=== PATIENT | male | born 1965 | race Caucasian/White ===

== ENCOUNTER 2016-05-02 10:30 | Inpatient (IN) | payer OTHER ==
[~2016-05-02] VITALS: Ht 167.6 cm; Wt 77.0 kg
[2016-08-12 16:58] VITALS: BMI 27.0
[2016-08-15] VITALS (66 sets, daily range): BP systolic 78–138; BP diastolic 26–80; PULSE 0–110; RESP 15–41; Ht 167.6 cm; Wt 77.0 kg
[2016-08-15] MEDS ORDERED: AMPICILLIN/SULB 3 GM/NS (PMX) 100 ML IVPB ONE (07:00)
[2016-08-15] MEDS ORDERED: SOD CHLORIDE 0.9% 1,000 ML IV ONE (07:00)
[2016-08-15] MEDS ORDERED: EPHEDrine SULFATE 50 MG/5 ML SYG ONE (07:00)
--- NOTE | 2016-08-15 07:39 | RADRPT ---
PROCEDURE: XR Chest. CLINICAL INDICATION: Preop TECHNIQUE: A single AP view of the chest was obtained. COMPARISON: None. FINDINGS: No focal airspace opacification, pleural effusion or pneumothorax is seen. The cardiomediastinal si lhouette is within normal limits for size. The osseous structures are unremarkable. IMPRESSION: No radiographic evidence of acute cardiopulmonary disease. RPTAT: HH .Hian Vaca MD, MD Date Time Electronically viewed and signed by .Hina Vaca MD, on 08/15/2016 07:39 .G/
[2016-08-15] MEDS ORDERED: NORCO (08:03)
[2016-08-15] MEDS ORDERED: SERT50TA PO (08:03)
[2016-08-15] MEDS ORDERED: ENOX80DI12 SC (08:03)
[2016-08-15] MEDS ORDERED: RANI150T9 PO (08:08)
[2016-08-15] MEDS ORDERED: IBUP800T25 PO (08:08)
[2016-08-15 08:15] LABS: POTASSIUM 4.1 mmol/L (3.5-5.1)
[2016-08-15 08:18] LABS: CALCIUM 8.7 mg/dl (8.4-10.2); CREATININE 0.77 mg/dl (0.61-1.24)
[2016-08-15 08:21] LABS: INR 0.91; PROTIME 12.3 Sec (12.2-14.2)
[2016-08-15 08:23] LABS: BASOPHIL # 0.1 10^3/ul (0.0-0.1); BASOPHILS % 0.8 % (0.0-2.0); EOSINOPHILS # 0.4 10^3/ul (0.0-0.5); EOSINOPHILS % 6.6 % (0.0-7.0); HEMOGLOBIN 13.9 g/dl (14.0-18.0); LYMPHOCYTES # 2.3 10^3/ul (0.8-2.9); LYMPHOCYTES % 35.2 % (15.0-51.0); MEAN CORPUSCULAR HEMOGLOBIN 32.1 pg (29.0-33.0); MEAN CORPUSCULAR HGB CONC 35.6 g/dl (32.0-37.0); MEAN CORPUSCULAR VOLUME 90.1 fl (82.0-101.0); MEAN PLATELET VOLUME 7.3 fl (7.4-10.4); MONOCYTE # 0.7 10^3/ul (0.3-0.9); MONOCYTES % 10.4 % (0.0-11.0); PLATELET COUNT 221 10^3/UL (140-440); RED BLOOD COUNT 4.33 10^6/ul (4.70-6.10); UNCORRECTED WBC 6.4 10^3/ul (4.8-10.8); WHITE BLOOD COUNT 6.4 10^3/ul (4.8-10.8)
[2016-08-15 08:37] LABS: CONDITION 1
[2016-08-15 08:40] LABS: PARTIAL THROMBOPLASTIN TIME 24.1 Sec (25.0-35.0)
[2016-08-15] MEDS ORDERED: PROPOFOL 20 ML ONE (08:48)
[2016-08-15] MEDS ORDERED: LIDOCAINE 2% (SDV) 5 ML INJ ONE (08:48)
[2016-08-15] MEDS ORDERED: ROCURONIUM 50 MG INJ ONE ×3 (08:50→12:34)
[2016-08-15] MEDS ORDERED: ROPIVACAINE 0.5 % 30 ML VIAL ONE ×2 (10:05→12:24)
[2016-08-15] MEDS ORDERED: LABETALOL HCL 20MG INJ ONE (10:43)
[2016-08-15] MEDS ORDERED: SUCCINYLCHOLINE CHLORIDE 100 MG/5 ML SYG IV ONE (11:28)
[2016-08-15] MEDS ORDERED: MEPERIDINE 25 MG INJ IV PRN (11:30)
[2016-08-15] MEDS ORDERED: hydrALAzine 20 MG INJ IV PRN (11:30)
[2016-08-15] MEDS ORDERED: EPHEDrine SULFATE 50 MG/5 ML SYG IV PRN (11:30)
[2016-08-15] MEDS ORDERED: NALBUPHINE HCL (10 MG/1 ML) INJ IV PRN ×2 (11:30→14:30)
[2016-08-15] MEDS ORDERED: FENTAnyl 2MCG/ML-ROPIV 0.2% 100 ML BAG EPI SCH (11:30)
[2016-08-15] MEDS ORDERED: ZOLPIDEM 5 MG TAB PO PRN ×2 (11:30→14:30)
[2016-08-15] MEDS ORDERED: LABETALOL HCL 20MG INJ IV PRN (11:30)
[2016-08-15] MEDS ORDERED: ONDANSETRON 4 MG INJ IV PRN ×4 (11:30→14:30)
[2016-08-15] MEDS ORDERED: HYDROmorphONE (0.2 MG/ML) 10ML SYG IV PRN ×3 (11:30)
[2016-08-15] MEDS ORDERED: DIPHENHYDRAMINE 50 MG INJ IV PRN ×2 (11:30→14:30)
[2016-08-15] MEDS ORDERED: NALOXONE (0.4 MG/ML) INJ IV PRN ×2 (11:30→14:30)
[2016-08-15] MEDS ORDERED: HYDROmorphONE 1 MG/ML SYG IV PRN ×3 (11:30→14:30)
[2016-08-15] MEDS ORDERED: DEXAMETHASONE 4 MG/ML 1 ML INJ ONE (12:39)
[2016-08-15] MEDS ORDERED: ONDANSETRON 4 MG INJ ONE (12:40)
[2016-08-15] MEDS ORDERED: PHENYLephrine (100 MCG/ML) 5ML SYG ONE (12:53)
[2016-08-15] MEDS ORDERED: NEOSTIGMINE 3 MG/3 ML SYRINGE ONE (13:01)
[2016-08-15] MEDS ORDERED: GLYCOPYRROLATE 0.4 MG INJ ONE (13:01)
[2016-08-15] MEDS ORDERED: D5W-0.45 NACL + KCL 20 MEQ 1,000 ML IV SCH (13:09)
[2016-08-15] MEDS: MIDAZOLAM 1 MG/ML 2 ML INJ IV PRN ×2 (14:30→14:32)
[2016-08-15] MEDS ORDERED: LACTATED RINGER'S 250 ML IV ONE (15:30)
[2016-08-15 15:36] LABS: ADD UMIC NO; URINE BILIRUBIN (Dip) NEGATIVE (NEGATIVE); URINE BLOOD (Dip) NEGATIVE (NEGATIVE); URINE COLOR LT. YELLOW (YELLOW); URINE GLUCOSE (Dip) NEGATIVE (NEGATIVE); URINE KETONES (Dip) NEGATIVE (NEGATIVE); URINE LEUKOCYTE ESTERASE (Dip) NEGATIVE (NEGATIVE); URINE NITRITE (Dip) NEGATIVE (NEGATIVE); URINE TOTAL PROTEIN (Dip) NEGATIVE (NEGATIVE); URINE UROBILINOGEN (Dip) 0.2 E.U./dL (0.1-1.0)
--- NOTE | 2016-08-15 15:38 | HP ---
Date/Time of Note Date/Time of Note DATE: 08/15/16 TIME: 15:22 Assessment/Plan VTE Prophylaxis VTE Prophylaxis Intervention: SCD's, other (Lovenox on hold at this time, POD # 0) Lines/Catheters IV Catheter Type (from Nrsg): A Line Urinary Cath still in place: Yes Reason Cath still needed: other (indicate) (Critical care) Assessment/Plan Assessment/Plan 50 yo Male with 1) S/p Pancreatic Mass Removal, POD #0 2) Hx of PE/DVT 3) Hx of Abdominal trauma S/p Partial Colectomy, Portal Hepatectomy 4) Dyslipidemia 5) Borderline Hypotension, Post Op, Epidural Cont excellent PACU care Cont LR Maintenance IVFs, Bolus 250ml as needed to maintain MAPs>65mmHg Will request ICU transfer once bed available. Cont strict Is and Os, Thomas catheter care, SCDs Cont Pain Rx as needed Discussed case with Dr Kuhn and Dr Cisneros of Anesthesia Will order routine labs post Op, No Lovenox Rx at this time Further care as determined by Surgery. HPI/ROS Admit Date/Time Admit Date/Time Aug 15, 2016 at 06:44 Hx of Present Illness 50 yo [place] Male with Hypercoagulable state, RLE DVT and PE (was on Lovenox until held for Surgery), Hx of Abdominal trauma in past, Hx of Partial Colectomy, Portal Hepatectomy, Hx of Pancreatic Cyst/Mass who is POD #0 after Pancreatic Mass removal by Dr Kuhn today and is currently in PACU. Pt is awake and alert, has epidural anesthesia still in place. BP was borderline with A-line, however has improved with IVF challenge and is currently on maintenance IVFs. Pt also required multiple doses of Pain Rx (Dilaudid and Demerol) for abdominal pain. Pt does not have any new complaints at this time, Denies Fever , Chills, N/V, CP or SOB. No history of Dysuria or hematuria. Pt has received IV Abx Joanna-operatively. ROS Subjective hx not possible: pt critical status Constitutional: No chills, No febrile ENT: No bleeding Respiratory: No shortness of breath Cardiovascular: no complaints Gastrointestinal: pain, No nausea, No vomiting Genitourinary: No dysuria Skin: no complaints Neurologic: No dizziness, No focal-weakness, No headache Endocrine: no complaints Psychological: no complaints Immunologic: no complaints PMH/Family/Social Past Medical History Medical History: deep vein thrombosis, high cholesterol, pancreatitis ( Pancreatic Cysts/Mass), renal disease (Kidney stone), other (Pulmonary embolism , Hx of Abdominal trauma) Past Surgical History Past Surgical Hx: bowel resection (Partial colectomy, portal hepatectomy), other Family History Significant Family History: no pertinent family hx Social History Originally from [place], Lives with Friend here in the [facility], Pt is with children. Alcohol Use: none Smoking Status: Current some day smoker Drug Use: none Exam/Review of Systems Vital Signs Vitals Vital Signs Date Time Temp Pulse Resp B/P Pulse Ox O2 Delivery O2 Flow Rate FiO2 08/15/16 14:38 86 16 98/40 100 Nasal Cannula 2.0 08/15/16 13:39 97.7 Exam Constitutional: alert, oriented, No distress Psych: nl mood/affect, No anxiety Head: atraumatic, normocephalic Eyes: EOMI, nl conjunctiva, nl sclera, No icteric ENMT: mucosa pink and moist, nl lips & teeth Neck: No jvd Respiratory: clear to auscultation, No crackles/rales, No diminished breath sounds, No labored breathing Cardiovascular: regular rate and rhythm, No edema Gastrointestinal: other (CY Drain), soft, surgical scars, tender, No distended Genitourinary - Male: other (Thomas) Musculoskeletal: nl extremities to inspection Extremities: normal pulses, No cyanosis, No edema Neurological: MEDICAL INFORMATION SPECIALIST II-XII intact, nl mental status, nl speech, nl strength, No confused, No lethargic Skin: nl turgor, No diaphoresis, No rash or lesions Labs Result Diagram: 08/15/16 0750 08/15/16 0750 Medications Medications Current Medications Ondansetron HCl 4 mg 4 mg Q6H PRN IV NAUSEA AND/OR VOMITING; Start 08/15/16 at 13:30 Piperacillin Sod/ Tazobactam Sod 100 ml @ 200 mls/hr Q6 IVPB ; Start 08/15/16 at 18:00; Stop 08/17/16 at 12:29 Potassium Chloride/Dextrose/ Sod Cl (D5-1/2ns + KCl 20 Meq) 1,000 ml @ 150 mls/ hr Q6H40M IV ; Start 08/15/16 at 13:09 Hydromorphone HCl (Dilaudid) 0.2 mg Q2H PRN IV PAIN LEVEL 1-5 Last administered on 08/15/16t 14:29; Admin Dose 0.4 MG; Start 08/15/16 at 14:30; Stop 08/16/16 at 14:29 Hydromorphone HCl (Dilaudid) 0.4 mg Q2H PRN IV PAIN LEVEL 6-10; Start 08/15/16 at 14:30; Stop 08/16/16 at 14:29 Diphenhydramine HCl (Benadryl) 25 mg Q4H PRN IV PRURITUS; Start 08/15/16 at 14: 30; Stop 08/16/16 at 14:29 Nalbuphine HCl (Nubain) 10 mg Q4H PRN IV PRURITUS; Start 08/15/16 at 14:30; Stop 08/16/16 at 14:29 Ondansetron HCl (Zofran Inj) 4 mg Q6H PRN IV NAUSEA AND/OR VOMITING; Start at 14:30; Stop 08/16/16 at 14:29 Naloxone HCl 0.2 mg 0.2 mg Q2M PRN IV FOR RESP RATE 8 OR LESS; Start 08/15/16 at 14:30; Stop 08/16/16 at 14:29 Lactated Ringer's (Lr) 250 ml @ 250 mls/hr Q1H ONCE IV ; Start 08/15/16 at 15: 30; Stop 08/15/16 at 16:29 Procedures Procedures PROCEDURE: XR Chest. CLINICAL INDICATION: Preop TECHNIQUE: A single AP view of the chest was obtained. COMPARISON: None. FINDINGS: No focal airspace opacification, pleural effusion or pneumothorax is seen. The cardiomediastinal silhouette is within normal limits for size. The osseous structures are unremarkable. IMPRESSION: No radiographic evidence of acute cardiopulmonary disease. RPTAT: HH .Hina Vaca MD, MD Date Time Electronically viewed and signed by .Hina Vaca MD, MD on 08/15/2016 07 :39 KOBE VELIZ MD Aug 15, 2016 15:34 KOBE VELIZ MD Aug 15, 2016 15:34
[2016-08-15 16:21] LABS: BASOPHILS % 0.3 % (0.0-2.0); EOSINOPHILS % 0.1 % (0.0-7.0); HEMATOCRIT 35.3 % (42.0-52.0); LYMPHOCYTES # 0.6 10^3/ul (0.8-2.9); LYMPHOCYTES % 4.4 % (15.0-51.0); MEAN CORPUSCULAR HEMOGLOBIN 31.4 pg (29.0-33.0); MEAN CORPUSCULAR VOLUME 92.2 fl (82.0-101.0); MEAN PLATELET VOLUME 7.1 fl (7.4-10.4); MONOCYTE # 0.5 10^3/ul (0.3-0.9); MONOCYTES % 3.6 % (0.0-11.0); NEUTROPHIL # 12.4 10^3/ul (1.6-7.5); NEUTROPHILS % 91.6 % (39.0-77.0); PLATELET COUNT 177 10^3/UL (140-440); RED BLOOD COUNT 3.83 10^6/ul (4.70-6.10); RED CELL DISTRIBUTION WIDTH 13.1 % (11.5-14.5); UNCORRECTED WBC 13.5 10^3/ul (4.8-10.8); WHITE BLOOD COUNT 13.5 10^3/ul (4.8-10.8)
[2016-08-15 16:26] LABS: ALBUMIN 3.1 g/dl (3.3-4.9)
[2016-08-15 16:28] LABS: BILIRUBIN,INDIRECT 0.4 mg/dl (0-1.1); BILIRUBIN,TOTAL 0.4 mg/dl (0.2-1.3)
[2016-08-15 16:29] LABS: ALBUMIN/GLOBULIN RATIO 1.34; PHOSPHORUS 3.2 mg/dl (2.5-4.9); TOTAL PROTEIN 5.4 g/dl (6.1-8.1)
[2016-08-15 16:30] LABS: MAGNESIUM 1.7 mg/dl (1.7-2.5)
[2016-08-15 16:33] LABS: CONDITION 1; LH ANALYZER COMMENTS 1
[2016-08-15 16:36] LABS: CREATININE 0.72 mg/dl (0.61-1.24); POTASSIUM 4.2 mmol/L (3.5-5.1)
[2016-08-15 16:39] LABS: CALCIUM 7.5 mg/dl (8.4-10.2)
[2016-08-15] MEDS: PIPER-TAZO 3.375 GM IV (PMX) 100 ML IVPB SCH ×2 (17:58→23:45)
[2016-08-15] MEDS ORDERED: PIPER-TAZO 3.375 GM IV (PMX) 100 ML IVPB SCH (18:00)
--- NOTE | 2016-08-15 18:44 | OPR ---
DATE OF OPERATION: 08/15/2016 PREOPERATIVE DIAGNOSIS: Pancreatic tail mass. POSTOPERATIVE DIAGNOSIS: Pancreatic tail mass. OPERATION PERFORMED: Distal pancreatectomy. ANESTHESIA: General. ANESTHESIOLOGIST: Dr. Martin SURGEON: Mark Kuhn MD LACROSSE PLAYER: Jesús Ashraf MD INDICATIONS FOR PROCEDURE: The patient is a 50-year-old male who presented with abdominal pain. Wo rkup revealed an intraductal pancreatic mucinous neoplasm and the patient was then referred for surg ical resection. He consented and was scheduled for surgery. DESCRIPTION OF PROCEDURE: The patient was brought to the operating theater, placed under general en dotracheal tube anesthesia after first placing an epidural catheter. An arterial line was also plac ed. The abdomen was then shaved, prepped, and draped in usual sterile fashion. A bilateral subcost al incision was demarcated with marking pen and carried out with 15 blade scalpel. Subcutaneous tis darnell was dissected down to the anterior rectus sheath. The anterior rectus sheath was incised bilate rally, as was the underlying rectus abdominis muscle. The posterior sheath and peritoneum were also transected. This allowed for excellent exposure. Due to previous abdominal surgery, there were si gnificant adhesions encountered in the left upper quadrant. The Bookwalter was placed. With meticu lous dissection, the adhesions were taken down and excellent exposure was obtained. The lesser sac was then opened by transecting the avascular plane between the greater omentum and the transverse me sentery. With meticulous dissection, the pancreas was identified. Additional retractors were used to gain optimum exposure. The pancreas was then mobilized by incising the peritoneum overlying it b oth inferiorly and superiorly. The splenic artery was identified, dissected off of the pancreas, an d laid to rest in a retroperitoneal fashion, as was the splenic vein. The pancreas was further mobi lized. The mass was palpable. The pancreas was mobilized to the point where the mass could be full y grasped and appropriate transection beyond the mass was possible. The decision was then made to t ransect the pancreas. This was done with a combination of cautery and the LigaSure device. Specime n was sent for gross pathologic analysis performed by both Dr. Lynn and Dr. Ashraf, although it was inconclusive. Dr. Lynn favored a benign process. Therefore, preparations for concluding op eration was made. The transected portion of the body of the pancreas was then oversewn with multipl e 2-0 Prolene sutures. A #10 flat Sinan-Hunter drain was then brought through the left side of the abdomen, cut to size, and laid adjacent to the transected pancreas. It was secured in place with a 2-0 nylon suture. At this point, final irrigation and inspection took place. There was no evidenc e of bleeding. Lap, sponge, and instrument counts were correct. Therefore, the Bookwalter was blake mavis and the incision was closed in 2-layer fashion with #1 looped PDS sutures. The posterior layer included the peritoneum and posterior sheath and, more laterally, portions of the internal oblique a nd the anterior layer consisted of the anterior rectus sheath and, more laterally, the external obli que. The wound was then irrigated. The skin was reapproximated with skin clive. The patient josh erated the procedure well. The estimated blood loss was 200 mL. There were no complications. The patient was transported in stable condition to the recovery room. Dictated By: MARK OLIVEIRA/PATY Conf#: [id number] DID#: [id number]
[2016-08-15 18:47] LABS: PLATELET ESTIMATE PLT APPEAR ADEQUATE
[2016-08-15] MEDS: HYDROmorphONE 1 MG/ML SYG IV PRN ×3 (19:51→23:44)
[2016-08-15] MEDS: D5W-0.45 NACL + KCL 20 MEQ 1,000 ML IV SCH (20:57)
[2016-08-16] VITALS (49 sets, daily range): BP systolic 87–169; BP diastolic 45–101; PULSE 84–120; RESP 10–27
[2016-08-16] MEDS: FENTAnyl 2MCG/ML-ROPIV 0.2% 100 ML BAG EPI SCH ×3 (00:59→20:30)
[2016-08-16] MEDS: D5W-0.45 NACL + KCL 20 MEQ 1,000 ML IV SCH ×4 (01:46→23:31)
[2016-08-16] MEDS: HYDROmorphONE 1 MG/ML SYG IV PRN ×7 (01:46→13:44)
[2016-08-16 04:47] LABS: INR 1.01; PROTIME 13.3 Sec (12.2-14.2)
[2016-08-16 04:48] LABS: PARTIAL THROMBOPLASTIN TIME 23.6 Sec (25.0-35.0)
[2016-08-16 04:57] LABS: POTASSIUM 4.4 mmol/L (3.5-5.1)
[2016-08-16 05:00] LABS: CREATININE 0.72 mg/dl (0.61-1.24)
[2016-08-16 05:01] LABS: CALCIUM 7.7 mg/dl (8.4-10.2)
[2016-08-16] MEDS: PIPER-TAZO 3.375 GM IV (PMX) 100 ML IVPB SCH ×4 (05:38→23:30)
[2016-08-16 06:29] LABS: HEMATOCRIT 33.3 % (42.0-52.0); HEMOGLOBIN 11.6 g/dl (14.0-18.0); LYMPHOCYTES % 8.5 % (15.0-51.0); MEAN CORPUSCULAR HEMOGLOBIN 32.3 pg (29.0-33.0); MEAN CORPUSCULAR HGB CONC 34.8 g/dl (32.0-37.0); MEAN CORPUSCULAR VOLUME 92.7 fl (82.0-101.0); MEAN PLATELET VOLUME 7.9 fl (7.4-10.4); MONOCYTE # 0.9 10^3/ul (0.3-0.9); MONOCYTES % 7.7 % (0.0-11.0); NEUTROPHIL # 9.6 10^3/ul (1.6-7.5); NEUTROPHILS % 83.8 % (39.0-77.0); PLATELET COUNT 191 10^3/UL (140-440); UNCORRECTED WBC 11.5 10^3/ul (4.8-10.8); WHITE BLOOD COUNT 11.5 10^3/ul (4.8-10.8)
[2016-08-16 06:41] LABS: CONDITION 1
--- NOTE | 2016-08-16 11:35 | CONS ---
Date/Time of Note Date/Time of Note DATE: 08/16/16 TIME: 11:25 Consultation Date/Type/Reason Admit Date/Time Aug 15, 2016 at 06:44 Initial Consult Date Type of Consultation: post operative pain management Reason for Consultation status post pancreatic mass excision with post operative pain management with continuous thoracic epidural infusion 24 HR Interval Summary Free Text/Dictation post op day one status post pancreatic mass resection. patient with continuous thoracic epidural infusion for post operative pain management. epidural was decreased post op yesterday secondary to patient's wishes due to slight numbness to the legs. patient currently with breakthrough pain. lower extremities with normal motor control, blood pressure within normal limits. will increase epidural drip to 12 ml per hour and supplement with parenteral dilaudid for breakthrough pain. will start lovenox this afternoon at 2 PM (24 hours post op) 40 mg Q Day. continue to follow. Exam/Review of Systems Vital Signs Vitals Vital Signs Date Time Temp Pulse Resp B/P Pulse Ox O2 Delivery O2 Flow Rate FiO2 08/16/16 08:00 91 08/16/16 04:00 98.9 14 126/45 92 Nasal Cannula 2.0 Intake and Output 08/15/16 08/15/16 08/16/16 15:00 23:00 07:00 Intake Total 3500 ml 149 ml 2589 ml Output Total 1288 ml 800 ml 1470 ml Balance 2212 ml -651 ml 1119 ml Results Result Diagram: 08/16/16 0400 08/16/16 0400 Results 24 hrs Laboratory Tests Test 08/15/16 13:45 08/15/16 16:10 08/16/16 04:00 Urine Bilirubin NEGATIVE Urine Clarity CLEAR Urine Color LT. YELLOW Urine Glucose NEGATIVE Urine Hemoglobin NEGATIVE Urine Ketones NEGATIVE Urine Leukocyte Esterase NEGATIVE Urine Nitrite NEGATIVE Urine Specific [place] 1.025 Urine Total Protein NEGATIVE Urine Urobilinogen 0.2 E.U./dL Urine pH 6.0 Alanine Aminotransferase (ALT/SGPT) 35 Albumin 3.1 L Albumin/Globulin Ratio 1.34 Alkaline Phosphatase 57 Anion Gap 13 13 Aspartate Amino Transf (AST/SGOT) 29 Basophils # 0.0 0.0 Basophils % 0.3 0.0 Blood Morphology Comment Blood Urea Nitrogen 15 13 Calcium Level 7.5 L 7.7 L Carbon Dioxide Level 23 26 Chloride Level 106 104 Creatinine 0.72 0.72 Differential Comment AUTO w/SCAN Direct Bilirubin 0.00 Eosinophils # 0.0 0.0 Eosinophils % 0.1 0.0 Globulin 2.30 Glucose Level 138 138 Hematocrit 35.3 L 33.3 L Hemoglobin 12.0 L 11.6 L Indirect Bilirubin 0.4 Lymphocytes # 0.6 L 1.0 Lymphocytes % 4.4 L 8.5 L Magnesium Level 1.7 Mean Corpuscular Hemoglobin 31.4 32.3 Mean Corpuscular Hemoglobin Concent 34.0 34.8 Mean Corpuscular Volume 92.2 92.7 Mean Platelet Volume 7.1 L 7.9 Monocytes # 0.5 0.9 Monocytes % 3.6 7.7 Neutrophils # 12.4 H 9.6 H Neutrophils % 91.6 H 83.8 H Nucleated Red Blood Cells # 0.0 0.0 Nucleated Red Blood Cells % 0.0 0.0 Phosphorus Level 3.2 Platelet Count 177 191 Platelet Estimate PLT APPEAR ADEQUATE Potassium Level 4.2 4.4 Red Blood Count 3.83 L 3.60 L Red Cell Distribution Width 13.1 13.0 Sodium Level 138 139 Total Bilirubin 0.4 Total Protein 5.4 L White Blood Count 13.5 #H 11.5 H Activated Partial Thromboplast Time 23.6 L INR International Normalized Ratio 1.01 Prothrombin Time 13.3 Prothrombin Time Ratio 1.0 Medications Medications Current Medications Ondansetron HCl 4 mg 4 mg Q6H PRN IV NAUSEA AND/OR VOMITING; Start 08/15/16 at 13:30 Piperacillin Sod/ Tazobactam Sod 100 ml @ 200 mls/hr Q6 IVPB Last administered on 08/16/16 11:17; Admin Dose 200 MLS/HR; Start 08/15/16 at 18:00 ; Stop 08/17/16 at 12:29 Potassium Chloride/Dextrose/ Sod Cl (D5-1/2ns + KCl 20 Meq) 1,000 ml @ 150 mls/ hr Q6H40M IV Last administered on 08/16/16 10:50; Admin Dose 150 MLS/HR; Start 08/15/16 at 13:09 Hydromorphone HCl (Dilaudid) 0.2 mg Q2H PRN IV PAIN LEVEL 1-5 Last administered on 08/15/16 14:29; Admin Dose 0.4 MG; Start 08/15/16 at 14:30; Stop 08/16/16 at 14:29 Hydromorphone HCl (Dilaudid) 0.4 mg Q2H PRN IV PAIN LEVEL 6-10 Last administered on 08/16/16 09:54; Admin Dose 0.4 MG; Start 08/15/16 at 14:30; Stop 08/16/16 at 14:29 Diphenhydramine HCl (Benadryl) 25 mg Q4H PRN IV PRURITUS Last administered on 03:53; Admin Dose 25 MG; Start 08/15/16 at 14:30; Stop 08/16/16 at 14: 29 Nalbuphine HCl (Nubain) 10 mg Q4H PRN IV PRURITUS; Start 08/15/16 at 14:30; Stop 08/16/16 at 14:29 Ondansetron HCl (Zofran Inj) 4 mg Q6H PRN IV NAUSEA AND/OR VOMITING; Start at 14:30; Stop 08/16/16 at 14:29 Naloxone HCl (Narcan) 0.2 mg Q2M PRN IV FOR RESP RATE 8 OR LESS; Start at 14:30; Stop 08/16/16 at 14:29 LISSA CRUZ Aug 16, 2016 11:35
--- NOTE | 2016-08-16 11:38 | RADRPT ---
PROCEDURE: Chest Radiograph. CLINICAL INDICATION: Shortness of breath TECHNIQUE: Single frontal chest radiograph. COMPARISON: Chest radiograph 08/15/2016 FINDINGS: The cardiomediastinal silhouette is within normal limits. Lung volumes are moderately decreased in there is moderate basilar atelectasis. No infiltrate or effusion is seen. The bones are intact. IMPRESSION: 1. Decreased lung volumes with moderate basilar atelectasis. RPTAT: AA .Davy Angulo MD, MD Date Time Electronically viewed and signed by .Davy Angulo MD, on 08/16/2016 11:38 .B/
--- NOTE | 2016-08-16 11:53 | PN ---
Date/Time of Note Date/Time of Note DATE: 08/16/16 TIME: 11:48 Assessment/Plan VTE Prophylaxis VTE Prophylaxis Intervention: contraindicated (Post-Op), SCD's Lines/Catheters IV Catheter Type (from Nrsg): Peripheral IV Urinary Cath still in place: Yes Reason Cath still needed: urinary retention (Close monitor in ICU) Assessment/Plan Assessment/Plan 50 yo Male with 1) S/p Pancreatic Mass Removal, POD #1 2) Hx of PE/DVT, Chronic 3) Hx of Abdominal trauma S/p Partial Colectomy, Portal Hepatectomy 4) Dyslipidemia 5) Borderline Hypotension, Post Op, Epidural Will Decrease IVFs, Cont Pain Rx, Pt will remain NPO at this time. Cont strict Is and Os, Thomas catheter care, Cont Pain Rx as needed Discussed case with Dr Kuhn and Dr Garcia At this time as patient still has Epidural in place will hold of on AC with Lovenox Will order Lower Ext Doppler R/o DVT. Will Start Pepcid IV BID for GI Prophylaxis. Subjective 24 Hr Interval Summary Free Text/Dictation No new complaints, Did well overnight, No new episodes of hypotension. Very Good UO. Seen by Dr Kuhn. Still has epidural. Subjective hx not possible: pt critical status Exam/Review of Systems Vital Signs Vitals Vital Signs Date Time Temp Pulse Resp B/P Pulse Ox O2 Delivery O2 Flow Rate FiO2 08/16/16 08:00 91 08/16/16 04:00 98.9 14 126/45 92 Nasal Cannula 2.0 Intake and Output 08/15/16 08/15/16 08/16/16 15:00 23:00 07:00 Intake Total 3500 ml 149 ml 2589 ml Output Total 1288 ml 800 ml 1470 ml Balance 2212 ml -651 ml 1119 ml Exam Constitutional: alert, oriented, No distress Head: atraumatic Eyes: EOMI, nl conjunctiva ENMT: mucosa pink and moist Neck: No jvd Respiratory: clear to auscultation, No diminished breath sounds, No labored breathing Cardiovascular: regular rate and rhythm, No edema Gastrointestinal: soft, surgical scars, tender, No distended Extremities: normal pulses, No edema Neurological: HUMAN RESOURCES LEADER II-XII intact, nl mental status, No confused, No lethargic Skin: No diaphoresis, No nl turgor Results Result Diagram: 08/16/1639908/16/16 0400 Results 24 hrs Laboratory Tests Test 08/15/16 13:45 08/15/16 16:10 08/16/16 04:00 Urine Bilirubin NEGATIVE Urine Clarity CLEAR Urine Color LT. YELLOW Urine Glucose NEGATIVE Urine Hemoglobin NEGATIVE Urine Ketones NEGATIVE Urine Leukocyte Esterase NEGATIVE Urine Nitrite NEGATIVE Urine Specific Jo[place] 1.025 Urine Total Protein NEGATIVE Urine Urobilinogen 0.2 E.U./dL Urine pH 6.0 Alanine Aminotransferase (ALT/SGPT) 35 Albumin 3.1 L Albumin/Globulin Ratio 1.34 Alkaline Phosphatase 57 Anion Gap 13 13 Aspartate Amino Transf (AST/SGOT) 29 Basophils # 0.0 0.0 Basophils % 0.3 0.0 Blood Morphology Comment Blood Urea Nitrogen 15 13 Calcium Level 7.5 L 7.7 L Carbon Dioxide Level 23 26 Chloride Level 106 104 Creatinine 0.72 0.72 Differential Comment AUTO w/SCAN Direct Bilirubin 0.00 Eosinophils # 0.0 0.0 Eosinophils % 0.1 0.0 Globulin 2.30 Glucose Level 138 138 Hematocrit 35.3 L 33.3 L Hemoglobin 12.0 L 11.6 L Indirect Bilirubin 0.4 Lymphocytes # 0.6 L 1.0 Lymphocytes % 4.4 L 8.5 L Magnesium Level 1.7 Mean Corpuscular Hemoglobin 31.4 32.3 Mean Corpuscular Hemoglobin Concent 34.0 34.8 Mean Corpuscular Volume 92.2 92.7 Mean Platelet Volume 7.1 L 7.9 Monocytes # 0.5 0.9 Monocytes % 3.6 7.7 Neutrophils # 12.4 H 9.6 H Neutrophils % 91.6 H 83.8 H Nucleated Red Blood Cells # 0.0 0.0 Nucleated Red Blood Cells % 0.0 0.0 Phosphorus Level 3.2 Platelet Count 177 191 Platelet Estimate PLT APPEAR ADEQUATE Potassium Level 4.2 4.4 Red Blood Count 3.83 L 3.60 L Red Cell Distribution Width 13.1 13.0 Sodium Level 138 139 Total Bilirubin 0.4 Total Protein 5.4 L White Blood Count 13.5 #H 11.5 H Activated Partial Thromboplast Time 23.6 L INR International Normalized Ratio 1.01 Prothrombin Time 13.3 Prothrombin Time Ratio 1.0 Medications Medications Current Medications Ondansetron HCl 4 mg 4 mg Q6H PRN IV NAUSEA AND/OR VOMITING; Start 08/15/16 at 13:30 Piperacillin Sod/ Tazobactam Sod 100 ml @ 200 mls/hr Q6 IVPB Last administered on 08/16/16 11:17; Admin Dose 200 MLS/HR; Start 08/15/16 at 18:00 ; Stop 08/17/16 at 12:29 Potassium Chloride/Dextrose/ Sod Cl (D5-1/2ns + KCl 20 Meq) 1,000 ml @ 150 mls/ hr Q6H40M IV Last administered on 08/16/16 10:50; Admin Dose 150 MLS/HR; Start 08/15/16 at 13:09 Hydromorphone HCl (Dilaudid) 0.2 mg Q2H PRN IV PAIN LEVEL 1-5 Last administered on 08/15/16 14:29; Admin Dose 0.4 MG; Start 08/15/16 at 14:30; Stop 08/16/16 at 14:29 Hydromorphone HCl (Dilaudid) 0.4 mg Q2H PRN IV PAIN LEVEL 6-10 Last administered on 08/16/16 09:54; Admin Dose 0.4 MG; Start 08/15/16 at 14:30; Stop 08/16/16 at 14:29 Diphenhydramine HCl (Benadryl) 25 mg Q4H PRN IV PRURITUS Last administered on 03:53; Admin Dose 25 MG; Start 08/15/16 at 14:30; Stop 08/16/16 at 14: 29 Nalbuphine HCl (Nubain) 10 mg Q4H PRN IV PRURITUS; Start 08/15/16 at 14:30; Stop 08/16/16 at 14:29 Ondansetron HCl (Zofran Inj) 4 mg Q6H PRN IV NAUSEA AND/OR VOMITING; Start at 14:30; Stop 08/16/16 at 14:29 Naloxone HCl (Narcan) 0.2 mg Q2M PRN IV FOR RESP RATE 8 OR LESS; Start at 14:30; Stop 08/16/16 at 14:29 Famotidine (Pepcid Iv) 20 mg BID IV ; Start 08/16/16 at 21:00; Status KOBE OLIVARES MD Aug 16, 2016 11:53
--- NOTE | 2016-08-16 12:30 | RADRPT ---
PROCEDURE: US Lower extremity Venous. CLINICAL INDICATION: Bilateral lower extremity swelling TECHNIQUE: Multiple sonographic images of the bilateral lower extremity deep venous system was obt ained utilizing grayscale, color-flow, compressive sonography and doppler imaging with augmentation. The images were reviewed on a PACS workstation. COMPARISON: None. FINDINGS: There is normal compressibility and flow within the bilateral common femoral, superficial femoral , posterior tibial and popliteal veins. RPTAT: AA IMPRESSION: No sonographic evidence for deep venous thrombosis. .Rah Isbell MD, MD Date Time Electronically viewed and signed by .Rah Isbell MD, on 08/16/2016 12:29 .S/
--- NOTE | 2016-08-16 14:21 | RADRPT ---
Vent Rate: 77 bpm RR Interval: 0 msec [place] Interval: 132 msec QRS Duration: 86 msec QT Interval: 384 msec QTC Interval: 434 msec P-R-T [place]: 63 - 73 - 68 degrees Normal sinus rhythm Normal ECG Electronically Signed By: Fabio Davis [id number]
[2016-08-16] MEDS ORDERED: NALOXONE (0.4 MG/ML) INJ IV PRN (16:00)
[2016-08-16] MEDS ORDERED: ONDANSETRON 4 MG INJ IV PRN (16:00)
[2016-08-16] MEDS ORDERED: HYDROmorphONE 1 MG/ML SYG IV PRN (16:00)
[2016-08-16] MEDS: ENOXAPARIN 80 MG/0.8 ML SYG SC SCH (17:19)
--- NOTE | 2016-08-16 17:20 | PN ---
DATE: PATIENT LOCATION: NICU, Postop day #1., SUBJECTIVE: Patient complaining of too much pain in the line of incision, so much that it prevents him from being able to take a deep breath ____. Sometimes also he is complaining of episodes of spasm of the muscle. Apparently patient very upset because somebody stopped the Dilaudid breakthrou gh pain medication which has been ordered for him since yesterday, but eventually this problem was s olved and he is going to get a SCIENTIFIC DIVER Dilaudid per Dr. Cisneros, anesthesiologist. No nausea, no vomiting . SUBJECTIVE: GENERAL: Patient is alert, awake, oriented, respirations are shallow. He cannot take a very deep b reath because of the pain. VITAL SIGNS: Temperature is 98.6, heart rate is 89 to 100, respiratory rate 11 to 16, blood pressur e 128/70, saturation 97% nasal cannula 2 liters. LABORATORY DATA: WBC today is 11,500 with 83% segmented, hemoglobin and hematocrit slightly dropped today is 11.6/33.3. INR today is 1.01. Intake and urine output since operation is 3,320 mL. Mk son-Hunter is 38 mL since patient came to the ICU. This is somewhat bloody. Chest x-ray was taken t colleen shows decreased lung volumes and bibasilar atelectasis. Abdomen is soft. LOWER EXTREMITIES: No calf tenderness. Sequential compression devices on the patient's legs. Fole y catheter is in place. NG tube is not present. The patient is lying down on the bed in a semi-sit ting position. ASSESSMENT: 1. Stable postoperatively. 2. The patient is having too much pain because of the incision line. Urine output is adequate. PLAN: 1. Start patient on SCIENTIFIC DIVER of Dilaudid per Dr. Cisneros, anesthesiologist. 2. Will start patient on Lovenox 80 mg IV q.12h. per Dr. Cisneros, as they have discussed the matter treatment with Dr. Cisneros and Dr. Kuhn considering previous history of recurrent pulmonary emboli. T he patient also continued to have epidural anesthesia given by epidural catheter per Dr. Cisneros, anest hesiologist. Keep the sequential compression device in place. 3. Encourage patient to use the machine or incentive spirometry. 4. Other medical management per Dr. Garcia's group. Dictated By: BOB NICHOLAS MD PS/NTS Conf#: [id number] DID#: [id number]
[2016-08-16] MEDS: FAMOTIDINE 20 MG INJ IV SCH (20:29)
[2016-08-16] MEDS: ZOLPIDEM 5 MG TAB PO PRN (20:29)
[2016-08-16] MEDS ORDERED: ENOXAPARIN 80 MG/0.8 ML SYG SC SCH (21:00)
[2016-08-16] MEDS: HYDROmorphONE 0.2 MG/ML PCA IV SCH (23:32)
[2016-08-17] VITALS (57 sets, daily range): BP systolic 106–156; BP diastolic 66–103; PULSE 95–125; RESP 15–33
[2016-08-17] MEDS: FENTAnyl 2MCG/ML-ROPIV 0.2% 100 ML BAG EPI SCH ×3 (04:47→18:57)
[2016-08-17 05:39] LABS: POTASSIUM 4.3 mmol/L (3.5-5.1)
[2016-08-17 05:41] LABS: CREATININE 0.8 mg/dl (0.61-1.24)
[2016-08-17 05:42] LABS: CALCIUM 8.1 mg/dl (8.4-10.2)
[2016-08-17] MEDS: PIPER-TAZO 3.375 GM IV (PMX) 100 ML IVPB SCH ×2 (06:00→11:45)
[2016-08-17] MEDS: D5W-0.45 NACL + KCL 20 MEQ 1,000 ML IV SCH ×2 (06:00→15:42)
--- NOTE | 2016-08-17 08:48 | CONS ---
Date/Time of Note Date/Time of Note DATE: 08/17/16 TIME: 08:38 Consultation Date/Type/Reason Admit Date/Time Aug 15, 2016 at 06:44 Type of Consultation: post operative pain management 24 HR Interval Summary Free Text/Dictation post op day two status post pancreatic mass excision. patient comfortable with thoracic epidural pain management supplemented with demand iv dilaudid INDUSTRIAL ROOF PLUMBER and wishes to continue current management. no motor deficit to lower extremities and okay for patient to get out of bed to chair with assistance. SQ lovenox started yesterday pm and will continue q day. continue current epidural infusion at 12 ml per hour and supplement with dilaudid INDUSTRIAL ROOF PLUMBER. continue to follow. Exam/Review of Systems Vital Signs Vitals Vital Signs Date Time Temp Pulse Resp B/P Pulse Ox O2 Delivery O2 Flow Rate FiO2 08/17/16 07:00 100.5 116 22 120/80 96 Nasal Cannula 6.0 Intake and Output 08/16/16 08/16/16 08/17/16 15:00 23:00 07:00 Intake Total 140 ml 2163 ml Output Total 900 ml 995 ml 1525 ml Balance -900 ml -855 ml 638 ml Results Result Diagram: 08/16/16 0400 08/17/16 0400 Results 24 hrs Laboratory Tests Test 08/17/16 04:00 Anion Gap 11 Blood Urea Nitrogen 10 Calcium Level 8.1 L Carbon Dioxide Level 28 Chloride Level 102 Creatinine 0.80 Glucose Level 123 Potassium Level 4.3 Sodium Level 137 Medications Medications Current Medications Piperacillin Sod/ Tazobactam Sod 100 ml @ 200 mls/hr Q6 IVPB Last administered on 08/17/16 06:00; Admin Dose 200 MLS/HR; Start 08/15/16 at 18:00 ; Stop 08/17/16 at 12:29 Potassium Chloride/Dextrose/ Sod Cl (D5-1/2ns + KCl 20 Meq) 1,000 ml @ 150 mls/ hr Q6H40M IV Last administered on 08/17/16 06:00; Admin Dose 150 MLS/HR; Start 08/15/16 at 13:09 Famotidine (Pepcid Iv) 20 mg BID IV Last administered on 08/16/16 20:29; Admin Dose 20 MG; Start 08/16/16 at 21:00 Naloxone HCl (Narcan) 0.2 mg PRN PRN IV DECREASED REPIRATORY RATE; Start at 16:00 Hydromorphone HCl (Dilaudid INDUSTRIAL ROOF PLUMBER) Q4PCA IV Last administered on 08/16/16t 23:32 ; Admin Dose 6 MG; Start 08/16/16 at 16:00 Hydromorphone HCl (Dilaudid) 0.2 mg Q4H PRN IV PAIN LEVEL 1-5; Start 08/16/16 at 16:00 Hydromorphone HCl (Dilaudid) 0.4 mg Q4H PRN IV PAIN LEVEL 6-10; Start 08/16/16 at 16:00 Ondansetron HCl (Zofran Inj) 4 mg Q6H PRN IV NAUSEA AND/OR VOMITING; Start at 16:00 Enoxaparin Sodium (Lovenox) 80 mg DAILY SC Last administered on 08/16/16 17:19 ; Admin Dose 80 MG; Start 08/16/16 at 16:30 LISSA CRUZ Aug 17, 2016 08:48
[2016-08-17] MEDS: ENOXAPARIN 80 MG/0.8 ML SYG SC SCH (09:00)
[2016-08-17] MEDS: FAMOTIDINE 20 MG INJ IV SCH ×2 (09:05→21:42)
[2016-08-17 09:41] LABS: BASOPHIL # 0.1 10^3/ul (0.0-0.1); BASOPHILS % 0.6 % (0.0-2.0); EOSINOPHILS # 0.2 10^3/ul (0.0-0.5); EOSINOPHILS % 1.7 % (0.0-7.0); HEMATOCRIT 34.5 % (42.0-52.0); HEMOGLOBIN 11.5 g/dl (14.0-18.0); LYMPHOCYTES # 1.9 10^3/ul (0.8-2.9); LYMPHOCYTES % 17.3 % (15.0-51.0); MEAN CORPUSCULAR HEMOGLOBIN 31.6 pg (29.0-33.0); MEAN CORPUSCULAR HGB CONC 33.4 g/dl (32.0-37.0); MEAN CORPUSCULAR VOLUME 94.6 fl (82.0-101.0); MEAN PLATELET VOLUME 8.4 fl (7.4-10.4); MONOCYTE # 0.7 10^3/ul (0.3-0.9); MONOCYTES % 6.5 % (0.0-11.0); NEUTROPHIL # 8.3 10^3/ul (1.6-7.5); NEUTROPHILS % 73.9 % (39.0-77.0); PLATELET COUNT 171 10^3/UL (140-440); RED BLOOD COUNT 3.64 10^6/ul (4.70-6.10); RED CELL DISTRIBUTION WIDTH 13.3 % (11.5-14.5); UNCORRECTED WBC 11.2 10^3/ul (4.8-10.8); WHITE BLOOD COUNT 11.2 10^3/ul (4.8-10.8)
[2016-08-17 09:52] LABS: CONDITION 1
[2016-08-17] MEDS: HYDROmorphONE 0.2 MG/ML PCA IV SCH ×2 (11:41→18:59)
[2016-08-17 13:02] LABS: INR 1.07; PARTIAL THROMBOPLASTIN TIME 27.7 Sec (25.0-35.0); PROTIME 13.9 Sec (12.2-14.2); PT RATIO 1.1
--- NOTE | 2016-08-17 13:25 | PN ---
Date/Time of Note Date/Time of Note DATE: 08/17/16 TIME: 13:07 Assessment/Plan VTE Prophylaxis VTE Prophylaxis Intervention: contraindicated, SCD's Lines/Catheters IV Catheter Type (from Nrsg): Peripheral IV Urinary Cath still in place: Yes Reason Cath still needed: urinary retention, other (indicate) (ICU care) Assessment/Plan Assessment/Plan 50 yo Male with 1) S/p Pancreatic Mass Removal, POD #2 2) Hx of PE/DVT, Chronic 3) Hx of Abdominal trauma S/p Partial Colectomy, Portal Hepatectomy 4) Dyslipidemia 5) Borderline Hypotension - Resolved, Post Op, Epidural 6) Low grade temp Tylenol PRN for Fever, Cont to monitor, may related to Atelectasis If persists will onofre-culture. Decrease IVFs to 75ml/hr and possible DC tomorrow. Cont Pain Rx, Started on Clears, Consider stool softeners. Cont strict Is and Os, Thomas catheter care, Cont Pain Rx as needed Discussed case with Dr Cisneros At this time as patient still has Epidural in place will hold of on AC with Lovenox. Discussed extensively with CLOTH ROLL WINDER. Lower Ext Doppler Shows no evidence of DVT. Pepcid IV BID for GI Prophylaxis. Subjective 24 Hr Interval Summary Free Text/Dictation Remains on epidural at 12, Seen by Anesthesiologist who ordered Lovenox last night and it was given by RN. Despite my clear instructions to ICU RNs that I did not want patient to receive AC with epidural in place. However this was not followed. I also discussed this with Dr Kuhn yesterday. Subjective hx not possible: pt critical status Exam/Review of Systems Vital Signs Vitals Vital Signs Date Time Temp Pulse Resp B/P Pulse Ox O2 Delivery O2 Flow Rate FiO2 08/17/16 12:00 100.7 109 19 144/70 96 Nasal Cannula 08/17/16 08:26 6.0 Intake and Output 08/16/16 08/16/16 08/17/16 15:00 23:00 07:00 Intake Total 140 ml 2313 ml Output Total 900 ml 995 ml 1525 ml Balance -900 ml -855 ml 788 ml Exam Constitutional: alert, oriented, No distress Psych: No anxiety Head: atraumatic, normocephalic Eyes: EOMI ENMT: mucosa pink and moist Neck: No jvd Respiratory: crackles/rales (Bases), No diminished breath sounds, No labored breathing Cardiovascular: regular rate and rhythm, No edema Gastrointestinal: non-tender, soft, No rebound or guarding Extremities: No edema Neurological: ARCHITECT NAVAL II-XII intact, nl mental status, nl speech, No confused, No lethargic Skin: nl turgor, No diaphoresis Results Result Diagram: 08/17/16 0400 08/17/16 0400 Results 24 hrs Laboratory Tests Test 08/17/16 04:00 08/17/16 12:35 Anion Gap 11 Basophils # 0.1 Basophils % 0.6 Blood Urea Nitrogen 10 Calcium Level 8.1 L Carbon Dioxide Level 28 Chloride Level 102 Creatinine 0.80 Eosinophils # 0.2 Eosinophils % 1.7 Glucose Level 123 Hematocrit 34.5 L Hemoglobin 11.5 L Lymphocytes # 1.9 Lymphocytes % 17.3 Mean Corpuscular Hemoglobin 31.6 Mean Corpuscular Hemoglobin Concent 33.4 Mean Corpuscular Volume 94.6 Mean Platelet Volume 8.4 Monocytes # 0.7 Monocytes % 6.5 Neutrophils # 8.3 H Neutrophils % 73.9 Nucleated Red Blood Cells # 0.0 Nucleated Red Blood Cells % 0.0 Platelet Count 171 Potassium Level 4.3 Red Blood Count 3.64 L Red Cell Distribution Width 13.3 Sodium Level 137 White Blood Count 11.2 H Activated Partial Thromboplast Time 27.7 INR International Normalized Ratio 1.07 Prothrombin Time 13.9 Prothrombin Time Ratio 1.1 Medications Medications Current Medications Potassium Chloride/Dextrose/ Sod Cl (D5-1/2ns + KCl 20 Meq) 1,000 ml @ 150 mls/ hr Q6H40M IV Last administered on 08/17/16 06:00; Admin Dose 150 MLS/HR; Start 08/15/16 at 13:09 Famotidine (Pepcid Iv) 20 mg BID IV Last administered on 08/17/16 09:05; Admin Dose 20 MG; Start 08/16/16 at 21:00 Naloxone HCl (Narcan) 0.2 mg PRN PRN IV DECREASED REPIRATORY RATE; Start at 16:00 Hydromorphone HCl (Dilaudid ACCOUNTS PAYABLE REPRESENTATIVE) Q4PCA IV Last administered on 08/17/16 11:41 ; Admin Dose 6 MG; Start 08/16/16 at 16:00 Hydromorphone HCl (Dilaudid) 0.2 mg Q4H PRN IV PAIN LEVEL 1-5 Last administered on 08/17/16t 10:52; Admin Dose 0.2 MG; Start 08/16/16 at 16:00 Hydromorphone HCl (Dilaudid) 0.4 mg Q4H PRN IV PAIN LEVEL 6-10; Start 08/16/16 at 16:00 Ondansetron HCl (Zofran Inj) 4 mg Q6H PRN IV NAUSEA AND/OR VOMITING; Start at 16:00 Procedures Procedures PROCEDURE: US Lower extremity Venous. CLINICAL INDICATION: Bilateral lower extremity swelling TECHNIQUE: Multiple sonographic images of the bilateral lower extremity deep venous system was obtained utilizing grayscale, color-flow, compressive sonography and doppler imaging with augmentation. The images were reviewed on a PACS workstation. COMPARISON: None. FINDINGS: There is normal compressibility and flow within the bilateral common femoral, superficial femoral , posterior tibial and popliteal veins. RPTAT: AA IMPRESSION: No sonographic evidence for deep venous thrombosis. .Rah Isbell MD, MD Date Time Electronically viewed and signed by .Rah Isbell MD, on 08/16/2016 12: 29 KOBE VELIZ MD Aug 17, 2016 13:17
[2016-08-17] MEDS ORDERED: ACETAMINOPHEN 325 MG TAB PO PRN (13:30)
[2016-08-17] MEDS: HYDROmorphONE 1 MG/ML SYG IV PRN (14:25)
--- NOTE | 2016-08-17 18:20 | PN ---
DATE: The patient was seen in the ICU, is postop day #2. 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 SUBJECTIVE: The patient states that he feels better earlier today. He says deep inspiration is eas ier to perform and otherwise no other new events. OBJECTIVE: GENERAL: The patient is alert, awake, oriented x3. VITAL SIGNS: Temperature 100.7, heart rate 109, respirations 19, blood pressure 144/70, saturation 96% nasal cannula 2 liters. ABDOMEN: Soft. CHEST: Symmetrical expansion. Decreased breathing sound at bases. LOWER EXTREMITY: No pitting edema. No calf tenderness. Sequential compression devices are wrapped around the legs and are functioning. LABORATORY DATA: WBC is 11,200; 73% segmented, the same as yesterday; H and H 11.5/34.5, stable. B UN 10, creatinine 0.8, stable. Urine output within the last 24 hours is 3430. Sinan-Hunter draina ge is 35 mL, serosanguineous. Epidural is running 2 mL per hour covering the thoracic area. Pain medication is on epidural plus D ilaudid demand per DRIVER OPERATOR. The patient received 1 dose of Lovenox 80 mg subq last night per recommenda tion of the anesthesiologist, but today apparently has been received between anesthesiologist and [facility] care physician. Per primary care physician order, now they have hold on to the injection of t he Lovenox, considering the presence of epidural catheter. ASSESSMENT: Postop day #2. The patient with bilateral subcostal incision for resection of the dist al pancreatic mass. Thomas catheter and Sinan-Hunter drain in place. The patient is on epidural an esthesia plus demand Dilaudid on DRIVER OPERATOR. Per anesthesiologist, the patient may get out of bed, sit in the chair with assistance only. PLAN: Continue the current care. The patient has been started on clear liquids already. Encourage incentive spirometry. Encourage active and passive movement of the toes, ankles, and legs. We amilcar l try to see if we can get the patient out of bed, sitting in a chair with assistance only. Dictated By: BOB NICHOLAS MD PS/NTS Conf#: [id number] DID#: [id number] CC: AL TOMLIN MD;*EndCC*
[2016-08-17] MEDS: ZOLPIDEM 5 MG TAB PO PRN (21:42)
[2016-08-17] MEDS: DIPHENHYDRAMINE 50 MG INJ IV PRN (22:07)
[2016-08-18] VITALS (35 sets, daily range): BP systolic 109–148; BP diastolic 62–100; PULSE 90–117; RESP 12–30
[2016-08-18] MEDS: HYDROmorphONE 1 MG/ML SYG IV PRN ×6 (02:34→18:03)
[2016-08-18] MEDS: FENTAnyl 2MCG/ML-ROPIV 0.2% 100 ML BAG EPI SCH (03:22)
[2016-08-18] MEDS: D5W-0.45 NACL + KCL 20 MEQ 1,000 ML IV SCH ×2 (05:25→18:39)
[2016-08-18 05:51] LABS: BASOPHILS % 0.3 % (0.0-2.0); EOSINOPHILS # 0.3 10^3/ul (0.0-0.5); HEMATOCRIT 36.4 % (42.0-52.0); HEMOGLOBIN 12.6 g/dl (14.0-18.0); LYMPHOCYTES # 1.3 10^3/ul (0.8-2.9); LYMPHOCYTES % 13.2 % (15.0-51.0); MEAN CORPUSCULAR HEMOGLOBIN 32.1 pg (29.0-33.0); MEAN CORPUSCULAR HGB CONC 34.6 g/dl (32.0-37.0); MEAN CORPUSCULAR VOLUME 92.9 fl (82.0-101.0); MEAN PLATELET VOLUME 7.8 fl (7.4-10.4); MONOCYTE # 0.7 10^3/ul (0.3-0.9); MONOCYTES % 7.4 % (0.0-11.0); NEUTROPHIL # 7.6 10^3/ul (1.6-7.5); NEUTROPHILS % 76.1 % (39.0-77.0); PLATELET COUNT 174 10^3/UL (140-440); RED BLOOD COUNT 3.92 10^6/ul (4.70-6.10); RED CELL DISTRIBUTION WIDTH 13.1 % (11.5-14.5)
[2016-08-18 05:56] LABS: POTASSIUM 4.4 mmol/L (3.5-5.1)
[2016-08-18 05:58] LABS: CREATININE 0.74 mg/dl (0.61-1.24); INR 1.1; PROTIME 14.2 Sec (12.2-14.2); PT RATIO 1.1
[2016-08-18 05:59] LABS: CALCIUM 8.7 mg/dl (8.4-10.2); PARTIAL THROMBOPLASTIN TIME 26.1 Sec (25.0-35.0)
[2016-08-18 06:07] LABS: CONDITION 1
[2016-08-18] MEDS: HYDROmorphONE 0.2 MG/ML PCA IV SCH ×3 (06:17→19:56)
[2016-08-18] MEDS: FAMOTIDINE 20 MG INJ IV SCH ×2 (08:18→20:15)
--- NOTE | 2016-08-18 17:26 | PN ---
DATE: 08/18/2016 SUBJECTIVE: This is postop day #3. Feels much better today. The pain is under much better contro l. Apparently, last night the epidural catheter fell off from his body and since that time, he has been receiving MONOTYPE SETTER Dilaudid plus all 0.4 mg of Dilaudid every 4 hours for breakthrough pain. He is passing gas. No nausea, no vomiting. GENERAL: Patient is alert, awake, oriented x3. VITAL SIGNS: Temperature 99.2, heart rate 90 to 105. Respirations 17, blood pressure 134/95. Satu ration 97% room air. LABORATORY: WBC down to 10,000 with normal differential. Hemoglobin 12.6, hematocrit 36.4. BUN 7, creatinine 0.74. Normal range. Urine total in the past 24 hours 3850. Sinan-Hunter 20 mL of ser osanguineous drainage. ABDOMEN: Soft. LOWER EXTREMITIES: No pitting edema. There is no calf tenderness. Sequential compression device i s wrapped around the legs. Thomas catheter is in place. ASSESSMENT: Postop day #3. The patient is doing very well. Vital signs are stable. Hemoglobin an d hematocrit is stable. Urine output is adequate. Kidney function adequate. The patient is on valentin ar liquids. PLAN: 1. Discontinue Thomas today. 2. Continue clear liquid. 3. Transfer the patient out of ICU. 4. Probably start Lovenox tonight at 9:00 o'clock if okay with the primary admitting physician. 5. Encourage more incentive spirometry. Dictated By: BOB NICHOLAS MD PS/PATY Conf#: [id number] DID#: [id number]
--- NOTE | 2016-08-18 19:52 | PN ---
Date/Time of Note Date/Time of Note DATE: 08/18/16 TIME: 19:49 Assessment/Plan VTE Prophylaxis VTE Prophylaxis Intervention: SCD's Lines/Catheters IV Catheter Type (from Nrsg): Peripheral IV Urinary Cath still in place: No Assessment/Plan Assessment/Plan 1) S/p Pancreatic Mass Removal, POD #3 - per surgery - Cont Pain Rx - diet per sx 2) Hx of PE/DVT, Chronic - Lower Ext Doppler Shows no evidence of DVT. 3) Hx of Abdominal trauma S/p Partial Colectomy, Portal Hepatectomy 4) Dyslipidemia 5) Borderline Hypotension - Resolved, Post Op, Epidural 6) Low grade temp - Tylenol PRN for Fever, Cont to monitor, may related to Atelectasis - If persists will onofre-culture. Cont strict Is and Os, Thomas catheter care. Pepcid IV BID for GI Prophylaxis. TAD Sena Subjective 24 Hr Interval Summary Eyes: no complaints ENT: no complaints Respiratory: no complaints Cardiovascular: no complaints Gastrointestinal: pain Genitourinary: no complaints Musculoskeletal: no complaints Skin: no complaints Neurologic: no complaints Endocrine: no complaints Psychological: no complaints Immunologic: no complaints Exam/Review of Systems Vital Signs Vitals Vital Signs Date Time Temp Pulse Resp B/P Pulse Ox O2 Delivery O2 Flow Rate FiO2 08/18/16 19:38 99.3 101 18 129/78 98 08/18/16 15:00 Room Air 08/18/16 07:00 2.0 Intake and Output 08/17/16 08/17/16 08/18/16 15:00 23:00 07:00 Intake Total 1410 ml 660 ml 1100 ml Output Total 1400 ml 920 ml 1650 ml Balance 10 ml -260 ml -550 ml Exam Constitutional: alert, oriented Head: atraumatic Eyes: EOMI, icteric, nl sclera ENMT: nl external ears & nose Neck: non-tender Respiratory: diminished breath sounds Cardiovascular: nl pulses Gastrointestinal: soft, tender Musculoskeletal: nl extremities to inspection Extremities: normal pulses Neurological: nl mental status, nl speech Skin: other Lymph: nontender Results Result Diagram: 08/18/16 0500 08/18/16 0500 Results 24 hrs Laboratory Tests Test 08/18/16 05:00 Activated Partial Thromboplast Time 26.1 Anion Gap 14 Basophils # 0.0 Basophils % 0.3 Blood Urea Nitrogen 7 Calcium Level 8.7 Carbon Dioxide Level 29 Chloride Level 99 Creatinine 0.74 Eosinophils # 0.3 Eosinophils % 3.0 Glucose Level 122 Hematocrit 36.4 L Hemoglobin 12.6 L INR International Normalized Ratio 1.10 Lymphocytes # 1.3 Lymphocytes % 13.2 L Mean Corpuscular Hemoglobin 32.1 Mean Corpuscular Hemoglobin Concent 34.6 Mean Corpuscular Volume 92.9 Mean Platelet Volume 7.8 Monocytes # 0.7 Monocytes % 7.4 Neutrophils # 7.6 H Neutrophils % 76.1 Nucleated Red Blood Cells # 0.0 Nucleated Red Blood Cells % 0.0 Platelet Count 174 Potassium Level 4.4 Prothrombin Time 14.2 Prothrombin Time Ratio 1.1 Red Blood Count 3.92 L Red Cell Distribution Width 13.1 Sodium Level 138 White Blood Count 10.0 Medications Medications Current Medications Potassium Chloride/Dextrose/ Sod Cl (D5-1/2ns + KCl 20 Meq) 1,000 ml @ 75 mls/ hr [id number] IV Last administered on 08/18/16 18:39; Admin Dose 75 MLS/HR; Start 08/15/16 at 13:09 Famotidine (Pepcid Iv) 20 mg BID IV Last administered on 08/18/16 08:18; Admin Dose 20 MG; Start 08/16/16 at 21:00 Naloxone HCl (Narcan) 0.2 mg PRN PRN IV DECREASED REPIRATORY RATE; Start at 16:00 Hydromorphone HCl (Dilaudid ORANGE PICKER) Q4PCA IV Last administered on 08/18/16 12:09 ; Admin Dose 6 MG; Start 08/16/16 at 16:00 Hydromorphone HCl (Dilaudid) 0.2 mg Q4H PRN IV PAIN LEVEL 1-5 Last administered on 08/17/16 10:52; Admin Dose 0.2 MG; Start 08/16/16 at 16:00 Hydromorphone HCl (Dilaudid) 0.4 mg Q4H PRN IV PAIN LEVEL 6-10 Last administered on 08/18/16 18:03; Admin Dose 0.4 MG; Start 08/16/16 at 16:00 Ondansetron HCl (Zofran Inj) 4 mg Q6H PRN IV NAUSEA AND/OR VOMITING; Start 1/ 17/17 at 16:00 Acetaminophen (Tylenol Tab) 650 mg Q6H PRN PO PAIN AND OR ELEVATED TEMP; Start 08/17/16 at 13:30 Diphenhydramine HCl (Benadryl) 25 mg Q6H PRN IV ITCHING Last administered on t 22:07; Admin Dose 25 MG; Start 08/17/16 at 22:30 Enoxaparin Sodium (Lovenox) 80 mg BID SC ; Start 08/18/16 at 21:00 LIZZETH CARDENAS Aug 18, 2016 19:52
[2016-08-18] MEDS: ENOXAPARIN 80 MG/0.8 ML SYG SC SCH (20:46)
[2016-08-18] MEDS: DIPHENHYDRAMINE 50 MG INJ IV PRN (23:07)
[2016-08-18] MEDS: DOCUSATE SODIUM 100 MG CAP PO SCH (23:56)
[2016-08-19] MEDS: HYDROmorphONE 0.2 MG/ML PCA IV SCH ×4 (00:09→19:15)
[2016-08-19 02:18] VITALS: BP 120/84; RESP 18
[2016-08-19] MEDS: ZOLPIDEM 5 MG TAB PO PRN (02:21)
[2016-08-19 05:30] VITALS: BP 133/82; PULSE 106; RESP 18
[2016-08-19 05:42] LABS: AMYLASE 52 U/L (11-123); INR 1.05; POTASSIUM 4.4 mmol/L (3.5-5.1); PROTIME 13.7 Sec (12.2-14.2); PT RATIO 1.1
[2016-08-19 05:43] LABS: PARTIAL THROMBOPLASTIN TIME 32.5 Sec (25.0-35.0)
[2016-08-19 05:44] LABS: CREATININE 0.79 mg/dl (0.61-1.24)
[2016-08-19 05:45] LABS: CALCIUM 8.9 mg/dl (8.4-10.2)
[2016-08-19 05:51] LABS: BASOPHIL # 0.1 10^3/ul (0.0-0.1); BASOPHILS % 0.5 % (0.0-2.0); EOSINOPHILS # 0.5 10^3/ul (0.0-0.5); EOSINOPHILS % 5.3 % (0.0-7.0); HEMATOCRIT 33.9 % (42.0-52.0); HEMOGLOBIN 11.6 g/dl (14.0-18.0); LYMPHOCYTES # 1.9 10^3/ul (0.8-2.9); LYMPHOCYTES % 19.1 % (15.0-51.0); MEAN CORPUSCULAR HEMOGLOBIN 31.7 pg (29.0-33.0); MEAN CORPUSCULAR HGB CONC 34.3 g/dl (32.0-37.0); MEAN CORPUSCULAR VOLUME 92.4 fl (82.0-101.0); MEAN PLATELET VOLUME 7.6 fl (7.4-10.4); MONOCYTE # 0.9 10^3/ul (0.3-0.9); MONOCYTES % 9.5 % (0.0-11.0); NEUTROPHIL # 6.4 10^3/ul (1.6-7.5); NEUTROPHILS % 65.6 % (39.0-77.0); PLATELET COUNT 205 10^3/UL (140-440); RED BLOOD COUNT 3.67 10^6/ul (4.70-6.10); RED CELL DISTRIBUTION WIDTH 12.5 % (11.5-14.5); UNCORRECTED WBC 9.8 10^3/ul (4.8-10.8); WHITE BLOOD COUNT 9.8 10^3/ul (4.8-10.8)
[2016-08-19 06:45] LABS: CONDITION 1
[2016-08-19 07:00] VITALS: BP 135/77; RESP 18
[2016-08-19] MEDS: MAGNESIUM HYDROXIDE 30ML CUP PO PRN (07:19)
[2016-08-19] MEDS: DOCUSATE SODIUM 100 MG CAP PO SCH ×2 (09:16→20:41)
[2016-08-19] MEDS: FAMOTIDINE 20 MG INJ IV SCH ×2 (09:16→20:41)
[2016-08-19] MEDS: ENOXAPARIN 80 MG/0.8 ML SYG SC SCH ×2 (09:29→20:56)
[2016-08-19] MEDS: BISACODYL 10 MG SUPP PR PRN (10:52)
--- NOTE | 2016-08-19 14:05 | PN ---
DATE: 08/19/2016 Postoperative diagnosis day #4. SUBJECTIVE: The patient feels better, has been walking around on the floor, has passed gas. No nausea, no vomiting, but he still has a lot of pain. They had to change the SCALER PACKER to continuous and demand and the patient is using that. No breakthrough Dilaudid was required by him. OBJECTIVE: Vital signs are as follows: Temperature 99.1, pulse 27, respirations 18, blood pressure 135/77, saturations 95% on nasal cannula. LABORATORY: WBC today 9,800 with 65% segmented, normal. Hemoglobin 11.6, hematocrit 33.9. Amylase 62, lipase 31, within normal range. Urine output 1, 680 mL. No catheters is in place anymore. Sinan-Hunter 40 mL of serosanguineous. Abdomen is soft. Dressing is intact. ASSESSMENT: Satisfactory hospital postop course for a distal pancreatectomy, except for a slight problem with pain, but this is resolving too. The patient is using PCI, tolerating a liquid diet, has had 2 small liquid bowel movements. Sinan-Hunter drain is serosanguineous. No other problems. PLAN: Advance diet to full liquids today and tomorrow will start a soft diet, low fat, for the patient. If the pain is controlled and the patient tolerates a soft diet, it may be the patient is going to be ready for discharge on Monday. Dictated By: BOB COVARRUBIAS/PATY Conf#: [id number] DID#: [id number] MTDD
--- NOTE | 2016-08-19 15:09 | PN ---
Date/Time of Note Date/Time of Note DATE: 08/19/16 TIME: 15:09 Assessment/Plan VTE Prophylaxis VTE Prophylaxis Intervention: other Lines/Catheters IV Catheter Type (from Nrs): Peripheral IV Urinary Cath still in place: No Assessment/Plan Chief Complaint/Hosp Course 1) S/p Pancreatic Mass Removal - per surgery - Cont Pain Rx - diet per sx 2) Hx of PE/DVT, Chronic - Lower Ext Doppler Shows no evidence of DVT. 3) Hx of Abdominal trauma S/p Partial Colectomy, Portal Hepatectomy 4) Dyslipidemia 5) Borderline Hypotension - Resolved, Post Op, Epidural 6) Low grade temp - Tylenol PRN for Fever, Cont to monitor, may related to Atelectasis - If persists will onofre-culture. Problems: Subjective 24 Hr Interval Summary Free Text/Dictation Patient complain of constipation Exam/Review of Systems Vital Signs Vitals Vital Signs Date Time Temp Pulse Resp B/P Pulse Ox O2 Delivery O2 Flow Rate FiO2 08/19/16 14:41 18 08/19/16 07:00 99.1 77 135/77 95 08/19/16 05:30 Nasal Cannula 08/18/16 21:05 3.0 Intake and Output 08/18/16 08/18/16 08/19/16 15:00 23:00 07:00 Intake Total 1220 ml 300 ml 1850 ml Output Total 550 ml 10 ml 1060 ml Balance 670 ml 290 ml 790 ml Exam Head: atraumatic, normocephalic Neck: supple Respiratory: clear to auscultation Cardiovascular: regular rate and rhythm Gastrointestinal: non-tender, soft Results Result Diagram: 08/19/16 0500 08/19/16 0500 Results 24 hrs Laboratory Tests Test 08/19/16 05:00 Activated Partial Thromboplast Time 32.5 Amylase Level 52 Anion Gap 15 Basophils # 0.1 Basophils % 0.5 Blood Urea Nitrogen 9 Calcium Level 8.9 Carbon Dioxide Level 28 Chloride Level 97 Creatinine 0.79 Eosinophils # 0.5 Eosinophils % 5.3 Glucose Level 138 Hematocrit 33.9 L Hemoglobin 11.6 L INR International Normalized Ratio 1.05 Lipase 31 Lymphocytes # 1.9 Lymphocytes % 19.1 Mean Corpuscular Hemoglobin 31.7 Mean Corpuscular Hemoglobin Concent 34.3 Mean Corpuscular Volume 92.4 Mean Platelet Volume 7.6 Monocytes # 0.9 Monocytes % 9.5 Neutrophils # 6.4 Neutrophils % 65.6 Nucleated Red Blood Cells # 0.0 Nucleated Red Blood Cells % 0.0 Platelet Count 205 Potassium Level 4.4 Prothrombin Time 13.7 Prothrombin Time Ratio 1.1 Red Blood Count 3.67 L Red Cell Distribution Width 12.5 Sodium Level 136 White Blood Count 9.8 Medications Medications Current Medications Potassium Chloride/Dextrose/ Sod Cl (D5-1/2ns + KCl 20 Meq) 1,000 ml @ 75 mls/ hr [id number] IV Last administered on 08/18/16 18:39; Admin Dose 75 MLS/HR; Start 08/15/16 at 13:09 Famotidine (Pepcid Iv) 20 mg BID IV Last administered on 08/19/16 09:16; Admin Dose 20 MG; Start 08/16/16 at 21:00 Naloxone HCl (Narcan) 0.2 mg PRN PRN IV DECREASED REPIRATORY RATE; Start at 16:00 Ondansetron HCl (Zofran Inj) 4 mg Q6H PRN IV NAUSEA AND/OR VOMITING; Start at 16:00 Acetaminophen (Tylenol Tab) 650 mg Q6H PRN PO PAIN AND OR ELEVATED TEMP Last administered on 08/19/16 09:19; Admin Dose 650 MG; Start 08/17/16 at 13:30 Diphenhydramine HCl (Benadryl) 25 mg Q6H PRN IV ITCHING Last administered on 23:07; Admin Dose 25 MG; Start 08/17/16 at 22:30 Enoxaparin Sodium (Lovenox) 80 mg BID SC Last administered on 08/19/16 09:29; Admin Dose 80 MG; Start 08/18/16 at 21:00 Hydromorphone HCl (Dilaudid CNA PER DIEM) Q4PCA IV Last administered on 08/19/16 13:12 ; Admin Dose 6 MG; Start 08/18/16 at 22:00 Docusate Sodium (Colace) 100 mg BID PO Last administered on 08/19/16 09:16; Admin Dose 100 MG; Start 08/18/16 at 23:30 Bisacodyl (Dulcolax Supp) 10 mg DAILY PRN OR CONSTIPATION Last administered on 08/19/16 10:52; Admin Dose 10 MG; Start 08/18/16 at 23:30 Magnesium Hydroxide (Milk Of Mag) 30 ml DAILY PRN PO CONSTIPATION Last administered on 08/19/16 07:19; Admin Dose 30 ML; Start 08/19/16 at 07:00 HAL REED Aug 19, 2016 15:09
[2016-08-19] MEDS: D5W-0.45 NACL + KCL 20 MEQ 1,000 ML IV SCH (15:34)
[2016-08-19] MEDS ORDERED: LORAZEPAM 2 MG INJ IM PRN (19:00)
[2016-08-19] MEDS: LORAZEPAM 2 MG INJ IV PRN (19:11)
[2016-08-19 19:49] VITALS: BP 132/82; RESP 18
[2016-08-20] MEDS: D5W-0.45 NACL + KCL 20 MEQ 1,000 ML IV SCH ×2 (01:03→18:14)
[2016-08-20] MEDS: HYDROmorphONE 0.2 MG/ML PCA IV SCH ×4 (01:27→20:49)
[2016-08-20 07:26] VITALS: BP 140/87; RESP 19
[2016-08-20] MEDS: DOCUSATE SODIUM 100 MG CAP PO SCH ×2 (08:56→20:45)
[2016-08-20] MEDS: FAMOTIDINE 20 MG INJ IV SCH ×2 (08:56→20:45)
[2016-08-20] MEDS: ENOXAPARIN 80 MG/0.8 ML SYG SC SCH ×2 (08:58→20:48)
--- NOTE | 2016-08-20 11:24 | PN ---
Date/Time of Note Date/Time of Note DATE: 08/20/16 TIME: 11:23 Assessment/Plan VTE Prophylaxis VTE Prophylaxis Intervention: other Lines/Catheters IV Catheter Type (from Nrs): Peripheral IV Urinary Cath still in place: No Assessment/Plan Chief Complaint/Hosp Course 1) S/p Pancreatic Mass Removal - per surgery - Cont Pain Rx - diet per sx 2) Hx of PE/DVT, Chronic - Lower Ext Doppler Shows no evidence of DVT. 3) Hx of Abdominal trauma S/p Partial Colectomy, Portal Hepatectomy 4) Dyslipidemia 5) Borderline Hypotension - Resolved, Post Op, Epidural 6) Low grade temp - Tylenol PRN for Fever, Cont to monitor, may related to Atelectasis - If persists will onofre-culture. Problems: Subjective 24 Hr Interval Summary Free Text/Dictation Patient is upset about losing IV access and not getting hydration Exam/Review of Systems Vital Signs Vitals Vital Signs Date Time Temp Pulse Resp B/P Pulse Ox O2 Delivery O2 Flow Rate FiO2 08/20/16 07:26 98.0 92 19 140/87 99 08/19/16 05:30 Nasal Cannula 08/18/16 21:05 3.0 Intake and Output 08/19/16 08/19/16 08/20/16 15:00 23:00 07:00 Intake Total 1750 ml 1550 ml Output Total 1205 ml 1155 ml Balance 545 ml 395 ml Exam Constitutional: well developed Head: atraumatic, normocephalic Neck: supple Respiratory: clear to auscultation Cardiovascular: regular rate and rhythm Gastrointestinal: non-tender, soft Results Result Diagram: 08/19/16 0500 08/19/16 0500 Medications Medications Current Medications Potassium Chloride/Dextrose/ Sod Cl (D5-1/2ns + KCl 20 Meq) 1,000 ml @ 75 mls/ hr [id number] IV Last administered on 08/20/16 01:03; Admin Dose 75 MLS/HR; Start 08/15/16 at 13:09 Famotidine (Pepcid Iv) 20 mg BID IV Last administered on 08/20/16 08:56; Admin Dose 20 MG; Start 08/16/16 at 21:00 Naloxone HCl (Narcan) 0.2 mg PRN PRN IV DECREASED REPIRATORY RATE; Start at 16:00 Ondansetron HCl (Zofran Inj) 4 mg Q6H PRN IV NAUSEA AND/OR VOMITING; Start at 16:00 Acetaminophen (Tylenol Tab) 650 mg Q6H PRN PO PAIN AND OR ELEVATED TEMP Last administered on 08/19/16 09:19; Admin Dose 650 MG; Start 08/17/16 at 13:30 Diphenhydramine HCl (Benadryl) 25 mg Q6H PRN IV ITCHING Last administered on 23:07; Admin Dose 25 MG; Start 08/17/16 at 22:30 Enoxaparin Sodium (Lovenox) 80 mg BID SC Last administered on 08/20/16 08:58; Admin Dose 80 MG; Start 08/18/16 at 21:00 Docusate Sodium (Colace) 100 mg BID PO Last administered on 08/20/16 08:56; Admin Dose 100 MG; Start 08/18/16 at 23:30 Bisacodyl (Dulcolax Supp) 10 mg DAILY PRN [place] CONSTIPATION Last administered on 08/19/16 10:52; Admin Dose 10 MG; Start 08/18/16 at 23:30 Magnesium Hydroxide (Milk Of Mag) 30 ml DAILY PRN PO CONSTIPATION Last administered on 08/19/16 07:19; Admin Dose 30 ML; Start 08/19/16 at 07:00 Hydromorphone HCl (Dilaudid CLOUD ENGAGEMENT PARTNER) Q4PCA IV Last administered on 08/20/16 07:35 ; Admin Dose 6 MG; Start 08/19/16 at 19:00 Lorazepam (Ativan) 1 mg Q4 PRN IV ANXIETY Last administered on 08/19/16 19:11 ; Admin Dose 1 MG; Start 08/19/16 at 19:30 HAL REED Aug 20, 2016 11:24
--- NOTE | 2016-08-20 17:46 | PN ---
DATE: POSTOPERATIVE DAY: #5 SUBJECTIVE: No new complaints, only still has pain and requires SENIOR WEB SERVICES DEVELOPER for control of the pain. He dickinson s had 1 bowel movement. Has tolerated a soft diet so far. No nausea, no vomiting, no sweating, no fever, no chills. OBJECTIVE: VITAL SIGNS: 98, 92, 19, 140/87, 99% on room air saturation. ABDOMEN: Soft. Dressing change, wound intact. Minimal erythema at the edge of the wound. Sinan -Hunter drain is draining serosanguineous, about 30 mL/24h. LABORATORIES: WBC is 9,800. 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 PLAN: Continue the current care. Try to switch from SENIOR WEB SERVICES DEVELOPER to a p.o. pain medication as of tomorrow, and when he is stable and is controlled on p.o. pain medication, probably can discharge him; louie dickinson for Monday, hopefully. Dictated By: BOB NICHOLAS MD PS/PATY Conf#: [id number] DID#: [id number]
[2016-08-20 19:27] VITALS: BP 122/77; RESP 22
[2016-08-20] MEDS ORDERED: HYDROCODONE/APAP (10/325) TAB PO PRN (19:30)
[2016-08-20] MEDS: LORAZEPAM 2 MG INJ IV PRN (23:59)
[2016-08-21] MEDS: HYDROmorphONE 0.2 MG/ML PCA IV SCH ×3 (00:19→21:19)
[2016-08-21] MEDS: ZOLPIDEM 5 MG TAB PO PRN (02:38)
[2016-08-21 05:52] LABS: AMYLASE 76 U/L (11-123)
[2016-08-21 10:49] VITALS: BP 133/91; RESP 20
[2016-08-21] MEDS: DOCUSATE SODIUM 100 MG CAP PO SCH ×2 (11:11→21:07)
[2016-08-21] MEDS: FAMOTIDINE 20 MG INJ IV SCH (11:11)
[2016-08-21] MEDS: ENOXAPARIN 80 MG/0.8 ML SYG SC SCH ×2 (11:18→21:13)
--- NOTE | 2016-08-21 12:12 | PN ---
Date/Time of Note Date/Time of Note DATE: 08/21/16 TIME: 12:11 Assessment/Plan VTE Prophylaxis VTE Prophylaxis Intervention: other Lines/Catheters IV Catheter Type (from Nrs): Peripheral IV Urinary Cath still in place: No Assessment/Plan Chief Complaint/Hosp Course 1) S/p Pancreatic Mass Removal - per surgery - Cont Pain Rx - diet per sx 2) Hx of PE/DVT, Chronic - Lower Ext Doppler Shows no evidence of DVT. 3) Hx of Abdominal trauma S/p Partial Colectomy, Portal Hepatectomy 4) Dyslipidemia 5) Borderline Hypotension - Resolved, Post Op, Epidural 6) Low grade temp - Tylenol PRN for Fever, Cont to monitor, may related to Atelectasis - If persists will onofre-culture. Problems: Subjective 24 Hr Interval Summary Free Text/Dictation Patient unhappy with care he is getting from nursing and physician staff Exam/Review of Systems Vital Signs Vitals Vital Signs Date Time Temp Pulse Resp B/P Pulse Ox O2 Delivery O2 Flow Rate FiO2 08/21/16 10:49 98.3 89 20 133/91 99 08/19/16 05:30 Nasal Cannula 08/18/16 21:05 3.0 Intake and Output 08/20/16 08/20/16 08/21/16 15:00 23:00 07:00 Intake Total 605 ml 1050 ml Output Total 3 ml 1450 ml Balance 602 ml -400 ml Exam Constitutional: well developed Head: atraumatic, normocephalic Neck: supple Respiratory: clear to auscultation Cardiovascular: regular rate and rhythm Gastrointestinal: soft, tender Extremities: normal pulses Results Result Diagram: 08/19/16 0500 08/19/16 0500 Results 24 hrs Laboratory Tests Test 08/21/16 04:36 Amylase Level 76 Lipase 28 Medications Medications Current Medications Famotidine (Pepcid Iv) 20 mg BID IV Last administered on 08/21/16t 11:11; Admin Dose 20 MG; Start 08/16/16 at 21:00 Naloxone HCl (Narcan) 0.2 mg PRN PRN IV DECREASED REPIRATORY RATE; Start at 16:00 Ondansetron HCl (Zofran Inj) 4 mg Q6H PRN IV NAUSEA AND/OR VOMITING; Start at 16:00 Acetaminophen (Tylenol Tab) 650 mg Q6H PRN PO PAIN AND OR ELEVATED TEMP Last administered on 08/19/16 09:19; Admin Dose 650 MG; Start 08/17/16 at 13:30 Diphenhydramine HCl (Benadryl) 25 mg Q6H PRN IV ITCHING Last administered on 23:07; Admin Dose 25 MG; Start 08/17/16 at 22:30 Enoxaparin Sodium (Lovenox) 80 mg BID SC Last administered on 08/21/16 11:18; Admin Dose 80 MG; Start 08/18/16 at 21:00 Docusate Sodium (Colace) 100 mg BID PO Last administered on 08/21/16 11:11; Admin Dose 100 MG; Start 08/18/16 at 23:30 Bisacodyl (Dulcolax Supp) 10 mg DAILY PRN [place] CONSTIPATION Last administered on 08/19/16 10:52; Admin Dose 10 MG; Start 08/18/16 at 23:30 Magnesium Hydroxide (Milk Of Mag) 30 ml DAILY PRN PO CONSTIPATION Last administered on 08/19/16 07:19; Admin Dose 30 ML; Start 08/19/16 at 07:00 Hydromorphone HCl (Dilaudid BUSINESS DEVELOPMENT ENGINEER) Q4PCA IV Last administered on 08/21/16 00:19 ; Admin Dose 6 MG; Start 08/19/16 at 19:00 Lorazepam (Ativan) 1 mg Q4 PRN IV ANXIETY Last administered on 08/20/16 23:59 ; Admin Dose 1 MG; Start 08/19/16 at 19:30 Acetaminophen/ Hydrocodone Bitart ([place] (10325)) 1 tab Q4H PRN PO PAIN Last administered on 08/21/16 02:33; Admin Dose 1 TAB; Start 08/20/16 at 19:30 HAL REED Aug 21, 2016 12:11
[2016-08-21] MEDS ORDERED: MAGNESIUM HYDROXIDE 30ML CUP PO PRN (17:00)
[2016-08-21] MEDS: MAGNESIUM HYDROXIDE 30ML CUP PO PRN (17:00)
[2016-08-21] MEDS: BISACODYL 10 MG SUPP PR PRN (18:39)
--- NOTE | 2016-08-21 19:21 | PN ---
DATE: SUBJECTIVE: Complains of still having abdominal pain requiring pain medication, especially METAL BUMPER, has not had bowel movement since he started on regular diet, which is about 2 days now, no other compla ints. OBJECTIVE: VITAL SIGNS: As follows: Temperature 98.3, pulse 89, respiratory rate 18, blood pressure 133/99, pu lse ox 99% on room air. WBC 9800. Lipase is 28, amylase is 76. Sinan-Hunter drain is serosanguineous, 10 mL q.24h. ASSESSMENT AND PLAN: Stable. Postop day #6. Has not had a bowel movement since started on diet. Still requiring METAL BUMPER for pain control. PLAN: 1. To give her milk of magnesia. 2. Try to encourage p.o. pain medication and gradually trying to wean him off from METAL BUMPER and getting ready for discharge next week. Dictated By: BOB NICHOLAS MD PS/NTS Conf#: [id number] DID#: [id number]
[2016-08-21 19:45] VITALS: BP 123/61; RESP 22
[2016-08-21] MEDS: LORAZEPAM 2 MG INJ IV PRN (21:07)
[2016-08-21] MEDS: FAMOTIDINE 20 MG TAB PO SCH (21:07)
[2016-08-22] MEDS: ZOLPIDEM 5 MG TAB PO PRN ×2 (02:19→23:59)
[2016-08-22] MEDS: HYDROmorphONE 0.2 MG/ML PCA IV SCH ×3 (05:50→18:36)
[2016-08-22] MEDS: DOCUSATE SODIUM 100 MG CAP PO SCH ×2 (09:30→21:04)
[2016-08-22] MEDS: FAMOTIDINE 20 MG TAB PO SCH ×2 (09:30→21:05)
[2016-08-22] MEDS: ENOXAPARIN 80 MG/0.8 ML SYG SC SCH ×2 (09:38→21:11)
[2016-08-22 09:43] LABS: BASOPHILS % 0.4 % (0.0-2.0); EOSINOPHILS # 0.9 10^3/ul (0.0-0.5); EOSINOPHILS % 9.1 % (0.0-7.0); HEMATOCRIT 34.9 % (42.0-52.0); HEMOGLOBIN 11.9 g/dl (14.0-18.0); LYMPHOCYTES # 1.9 10^3/ul (0.8-2.9); LYMPHOCYTES % 19.8 % (15.0-51.0); MEAN CORPUSCULAR HEMOGLOBIN 31.6 pg (29.0-33.0); MEAN CORPUSCULAR HGB CONC 34.2 g/dl (32.0-37.0); MEAN CORPUSCULAR VOLUME 92.4 fl (82.0-101.0); MEAN PLATELET VOLUME 7.7 fl (7.4-10.4); MONOCYTE # 0.9 10^3/ul (0.3-0.9); MONOCYTES % 9.2 % (0.0-11.0); NEUTROPHIL # 5.9 10^3/ul (1.6-7.5); NEUTROPHILS % 61.5 % (39.0-77.0); PLATELET COUNT 324 10^3/UL (140-440); RED BLOOD COUNT 3.78 10^6/ul (4.70-6.10); RED CELL DISTRIBUTION WIDTH 12.7 % (11.5-14.5); UNCORRECTED WBC 9.5 10^3/ul (4.8-10.8); WHITE BLOOD COUNT 9.5 10^3/ul (4.8-10.8)
[2016-08-22 09:45] LABS: POTASSIUM 4.6 mmol/L (3.5-5.1)
[2016-08-22 09:48] LABS: CREATININE 0.96 mg/dl (0.61-1.24)
[2016-08-22 09:49] LABS: CALCIUM 9.3 mg/dl (8.4-10.2)
[2016-08-22 10:16] LABS: CONDITION 1
[2016-08-22 12:51] VITALS: BP 122/60; RESP 20
[2016-08-22] MEDS: LORAZEPAM 2 MG INJ IV PRN (14:01)
[2016-08-22 14:09] VITALS: BP 139/64; RESP 20
--- NOTE | 2016-08-22 15:20 | PN ---
DATE: 08/22/2016 SUBJECTIVE: 1. The pain has decreased to some extent and is agreeing towards the continuous dose of the Dilaudi d ELECTRIC RANGE SERVICER. 2. Patient is asking about the status of putting inferior vena cava filter for him because he has h ad repeated episodes of pulmonary emboli and deep vein thrombosis. Apparently before the operation, there has been a discussion with the GI doctor and the patient's primary physician and Dr. Kuhn th at they may put in a filter. So, I am going to talk to Dr. Kuhn to see if they are planning to put any filter in for him or not. OBJECTIVE VITAL SIGNS: Stable, afebrile. He has had a small bowel movement. ABDOMEN: Soft, bowel sounds normal. EXTREMITIES: No pitting edema, no calf tenderness. ASSESSMENT AND PLAN: Patient is status post distal pancreatectomy and is stable. The pain has been almost under control. We are going to switch from ELECTRIC RANGE SERVICER to oral antibiotic and if the patient tolera char, the patient will be ready for discharge unless Dr. Kuhn and other physicians decide to request inferior vena cava filter placement for him. Dictated By: BOB NICHOLAS MD PS/NTS Conf#: [id number] DID#: [id number]
--- NOTE | 2016-08-22 18:09 | PN ---
Date/Time of Note Date/Time of Note DATE: 08/22/16 TIME: 18:02 Assessment/Plan VTE Prophylaxis VTE Prophylaxis Intervention: LMWH Lines/Catheters IV Catheter Type (from Nrs): Peripheral IV Urinary Cath still in place: No Assessment/Plan Chief Complaint/Hosp Course - Pancreatic Mass S/p distal pancreatectomy - Hx of PE/DVT, Chronic - Hx of Abdominal trauma S/p Partial Colectomy, Portal Hepatectomy - Dyslipidemia Continue Lovenox for deep venous ecchymosis prophylaxis Further recommendations based on clinical course Plan of care discussed with Dr. Garcia Problems: Subjective 24 Hr Interval Summary Free Text/Dictation Patient continues to be on ASSOCIATE DIRECTOR DATA & ANALYTICS Dilaudid for pain, patient refuses [place] due to side effects, patient started mechanical soft diet, tolerates it well. Exam/Review of Systems Vital Signs Vitals Vital Signs Date Time Temp Pulse Resp B/P Pulse Ox O2 Delivery O2 Flow Rate FiO2 08/22/16 14:09 98.4 93 20 139/64 97 08/19/16 05:30 Nasal Cannula 08/18/16 21:05 3.0 Intake and Output 08/21/16 08/21/16 08/22/16 15:00 23:00 07:00 Intake Total 350 ml 700 ml Output Total 5 ml 3 ml 4 ml Balance -5 ml 347 ml 696 ml Exam Constitutional: alert, oriented Psych: no complaints Head: normocephalic Eyes: nl conjunctiva ENMT: nl external ears & nose Neck: non-tender, supple Respiratory: clear to auscultation, normal air movement Cardiovascular: regular rate and rhythm Gastrointestinal: other (status post surgery, CY with serous and venous drainage), soft Extremities: normal pulses Neurological: MOLD LAMINATOR II-XII intact Skin: nl turgor Results Result Diagram: 08/22/16 0910 08/22/16 0910 Results 24 hrs Laboratory Tests Test 08/22/16 09:10 Anion Gap 17 H Basophils # 0.0 Basophils % 0.4 Blood Urea Nitrogen 16 Calcium Level 9.3 Carbon Dioxide Level 30 Chloride Level 97 Creatinine 0.96 Eosinophils # 0.9 H Eosinophils % 9.1 H Glucose Level 144 Hematocrit 34.9 L Hemoglobin 11.9 L Lymphocytes # 1.9 Lymphocytes % 19.8 Mean Corpuscular Hemoglobin 31.6 Mean Corpuscular Hemoglobin Concent 34.2 Mean Corpuscular Volume 92.4 Mean Platelet Volume 7.7 Monocytes # 0.9 Monocytes % 9.2 Neutrophils # 5.9 Neutrophils % 61.5 Nucleated Red Blood Cells # 0.0 Nucleated Red Blood Cells % 0.0 Platelet Count 324 # Potassium Level 4.6 Red Blood Count 3.78 L Red Cell Distribution Width 12.7 Sodium Level 139 White Blood Count 9.5 Medications Medications Current Medications Naloxone HCl (Narcan) 0.2 mg PRN PRN IV DECREASED REPIRATORY RATE; Start at 16:00 Ondansetron HCl (Zofran Inj) 4 mg Q6H PRN IV NAUSEA AND/OR VOMITING; Start at 16:00 Acetaminophen (Tylenol Tab) 650 mg Q6H PRN PO PAIN AND OR ELEVATED TEMP Last administered on 08/19/16 09:19; Admin Dose 650 MG; Start 08/17/16 at 13:30 Diphenhydramine HCl (Benadryl) 25 mg Q6H PRN IV ITCHING Last administered on 23:07; Admin Dose 25 MG; Start 08/17/16 at 22:30 Enoxaparin Sodium (Lovenox) 80 mg BID SC Last administered on 08/22/16 09:38; Admin Dose 80 MG; Start 08/18/16 at 21:00 Docusate Sodium (Colace) 100 mg BID PO Last administered on 08/22/16 09:30; Admin Dose 100 MG; Start 08/18/16 at 23:30 Bisacodyl (Dulcolax Supp) 10 mg DAILY PRN [place] CONSTIPATION Last administered on 08/21/16 18:39; Admin Dose 10 MG; Start 08/18/16 at 23:30 Magnesium Hydroxide (Milk Of Mag) 30 ml DAILY PRN PO CONSTIPATION Last administered on 08/21/16 17:00; Admin Dose 30 ML; Start 08/19/16 at 07:00 Lorazepam (Ativan) 1 mg Q4 PRN IV ANXIETY Last administered on 08/22/16 14:01 ; Admin Dose 1 MG; Start 08/19/16 at 19:30 Acetaminophen/ Hydrocodone Bitart ([place] (10/325)) 1 tab Q4H PRN PO PAIN Last administered on 08/21/16 02:33; Admin Dose 1 TAB; Start 08/20/16 at 19:30 Magnesium Hydroxide (Milk Of Mag) 30 ml DAILY PRN PO CONSTIPATION; Start at 17:00 Famotidine (Pepcid) 20 mg BID PO Last administered on 08/22/16t 09:30; Admin Dose 20 MG; Start 08/21/16 at 21:00 Hydromorphone HCl (Dilaudid ASSOCIATE DIRECTOR DATA & ANALYTICS) Q4PCA IV ; Start 08/22/16 at 13:30 SAVANNA PARR Aug 22, 2016 18:09
[2016-08-22 20:18] VITALS: BP 134/81; RESP 20
[2016-08-23 00:30] VITALS: BP 131/77; PULSE 95; RESP 18
[2016-08-23] MEDS: HYDROmorphONE 0.2 MG/ML PCA IV SCH ×3 (00:55→16:44)
[2016-08-23] MEDS: ZOLPIDEM 5 MG TAB PO PRN (01:06)
[2016-08-23 06:22] LABS: POTASSIUM 4.4 mmol/L (3.5-5.1)
[2016-08-23 06:25] LABS: CREATININE 0.89 mg/dl (0.61-1.24)
[2016-08-23 06:47] LABS: BASOPHIL # 0.1 10^3/ul (0.0-0.1); BASOPHILS % 0.7 % (0.0-2.0); EOSINOPHILS # 0.8 10^3/ul (0.0-0.5); EOSINOPHILS % 10.2 % (0.0-7.0); HEMATOCRIT 34.2 % (42.0-52.0); HEMOGLOBIN 11.7 g/dl (14.0-18.0); LYMPHOCYTES # 2.1 10^3/ul (0.8-2.9); LYMPHOCYTES % 25.4 % (15.0-51.0); MEAN CORPUSCULAR HEMOGLOBIN 31.7 pg (29.0-33.0); MEAN CORPUSCULAR HGB CONC 34.3 g/dl (32.0-37.0); MEAN CORPUSCULAR VOLUME 92.4 fl (82.0-101.0); MEAN PLATELET VOLUME 7.9 fl (7.4-10.4); MONOCYTE # 0.8 10^3/ul (0.3-0.9); MONOCYTES % 9.6 % (0.0-11.0); NEUTROPHIL # 4.4 10^3/ul (1.6-7.5); NEUTROPHILS % 54.1 % (39.0-77.0); PLATELET COUNT 292 10^3/UL (140-440); RED CELL DISTRIBUTION WIDTH 12.8 % (11.5-14.5); UNCORRECTED WBC 8.2 10^3/ul (4.8-10.8); WHITE BLOOD COUNT 8.2 10^3/ul (4.8-10.8)
[2016-08-23 07:12] LABS: CONDITION 1
[2016-08-23 07:26] VITALS: BP 135/72; RESP 19
[2016-08-23] MEDS: FAMOTIDINE 20 MG TAB PO SCH (08:30)
[2016-08-23] MEDS: DOCUSATE SODIUM 100 MG CAP PO SCH (08:30)
[2016-08-23] MEDS: ENOXAPARIN 80 MG/0.8 ML SYG SC SCH (08:37)
[2016-08-23] MEDS ORDERED: MAGNESIUM HYDROXIDE 30ML CUP PO ONE (18:00)
[2016-08-23] MEDS ORDERED: Hydrocodone/Apap (10/325) PO (18:18)
--- NOTE | 2016-08-23 18:21 | PN ---
Date/Time of Note Date/Time of Note DATE: 08/23/16 TIME: 18:20 Assessment/Plan VTE Prophylaxis VTE Prophylaxis Intervention: LMWH Lines/C[facility]ters [facility] IV Urinary Cath still in place: No Assessment/Plan Chief Complaint/Hosp Course - Pancreatic Mass S/p distal pancreatectomy - Hx of PE/DVT, Chronic - Hx of Abdominal trauma S/p Partial Colectomy, Portal Hepatectomy - Dyslipidemia D/C home Continue Lovenox for deep venous ecchymosis prophylaxis Further recommendations based on clinical course Plan of care discussed with Dr. Garcia Problems: Exam/Review of Systems Vital Signs Vitals Vital Signs Date Time Temp Pulse Resp B/P Pulse Ox O2 Delivery O2 Flow Rate FiO2 08/23/16 07:26 98.9 89 19 135/72 95 08/23/16 00:30 Room Air Intake and Output 08/22/16 08/22/16 08/23/16 15:00 23:00 07:00 Intake Total 200 ml Balance 200 ml Exam Constitutional: alert, oriented Psych: no complaints Head: normocephalic Eyes: nl conjunctiva ENMT: nl external ears & nose Neck: non-tender, supple Respiratory: clear to auscultation, normal air movement Cardiovascular: regular rate and rhythm Gastrointestinal: other (status post surgery, CY with serous and venous drainage), soft Extremities: normal pulses Neurological: MEDICAL FACILITIES SECTION DIRECTOR II-XII intact Skin: nl turgor Results Result Diagram: 08/23/16 0510 08/23/16 0510 Results 24 hrs Laboratory Tests Test 08/23/16 05:10 Anion Gap 14 Basophils # 0.1 Basophils % 0.7 Blood Urea Nitrogen 17 Calcium Level 9.0 Carbon Dioxide Level 31 Chloride Level 100 Creatinine 0.89 Eosinophils # 0.8 H Eosinophils % 10.2 H Glucose Level 102 # Hematocrit 34.2 L Hemoglobin 11.7 L Lymphocytes # 2.1 Lymphocytes % 25.4 Mean Corpuscular Hemoglobin 31.7 Mean Corpuscular Hemoglobin Concent 34.3 Mean Corpuscular Volume 92.4 Mean Platelet Volume 7.9 Monocytes # 0.8 Monocytes % 9.6 Neutrophils # 4.4 Neutrophils % 54.1 Nucleated Red Blood Cells # 0.0 Nucleated Red Blood Cells % 0.0 Platelet Count 292 Potassium Level 4.4 Red Blood Count 3.70 L Red Cell Distribution Width 12.8 Sodium Level 141 White Blood Count 8.2 Medications Medications Current Medications Naloxone HCl (Narcan) 0.2 mg PRN PRN IV DECREASED REPIRATORY RATE; Start at 16:00 Ondansetron HCl (Zofran Inj) 4 mg Q6H PRN IV NAUSEA AND/OR VOMITING; Start at 16:00 Acetaminophen (Tylenol Tab) 650 mg Q6H PRN PO PAIN AND OR ELEVATED TEMP Last administered on 08/19/16 09:19; Admin Dose 650 MG; Start 08/17/16 at 13:30 Diphenhydramine HCl (Benadryl) 25 mg Q6H PRN IV ITCHING Last administered on 23:07; Admin Dose 25 MG; Start 08/17/16 at 22:30 Enoxaparin Sodium (Lovenox) 80 mg BID SC Last administered on 08/23/16 08:37; Admin Dose 80 MG; Start 08/18/16 at 21:00 Docusate Sodium (Colace) 100 mg BID PO Last administered on 08/23/16 08:30; Admin Dose 100 MG; Start 08/18/16 at 23:30 Bisacodyl (Dulcolax Supp) 10 mg DAILY PRN [place] CONSTIPATION Last administered on 08/21/16 18:39; Admin Dose 10 MG; Start 08/18/16 at 23:30 Magnesium Hydroxide (Milk Of Mag) 30 ml DAILY PRN PO CONSTIPATION Last administered on 08/21/16 17:00; Admin Dose 30 ML; Start 08/19/16 at 07:00 Lorazepam (Ativan) 1 mg Q4 PRN IV ANXIETY Last administered on 08/22/16 14:01 ; Admin Dose 1 MG; Start 08/19/16 at 19:30 Acetaminophen/ Hydrocodone Bitart ([place] (10/325)) 1 tab Q4H PRN PO PAIN Last administered on 08/21/16 02:33; Admin Dose 1 TAB; Start 08/20/16 at 19:30 Magnesium Hydroxide (Milk Of Mag) 30 ml DAILY PRN PO CONSTIPATION; Start at 17:00 Famotidine (Pepcid) 20 mg BID PO Last administered on 08/23/16 08:30; Admin Dose 20 MG; Start 08/21/16 at 21:00 Hydromorphone HCl (Dilaudid AIRCREWMAN) Q4PCA IV Last administered on 08/23/16t 16:44 ; Admin Dose 6 MG; Start 08/22/16 at 13:30 SAVANNA PARR Aug 23, 2016 18:21
--- NOTE | 2016-08-23 19:46 | PN ---
DATE: SUBJECTIVE: Feels better, has not had any bowel movement in the past 2 days. Actually has had a li ttle bit of watery bowel movement, but not solid bowel movement. The pain is much under control. N o nausea, no vomiting, no fever. OBJECTIVE: VITAL SIGNS: 98.9 temperature, 89 heart rate, respirations 19, blood pressure 135/72, saturation 95 % room air. LABORATORY DATA: WBC today 8200, hemoglobin and hematocrit are stable. Electrolyte is stable. ABDOMEN: Soft. Sinan-Hunter drain, 5 mL, serosanguineous. ASSESSMENT: Stable. The patient post-operation for distal pancreatectomy. The patient has been on soft diet, low fat diet as of Monday. Today is Monday. PLAN: From surgical point of view, this patient can be discharged home today. Followup by Dr. Jayy degroot. Pain medication to be given by Dr. Garcia. Other medication if it is needed by medical consul ester, Dr. Garcia. Dictated By: BOB NICHOLAS MD PS/NTS Conf#: [id number] DID#: [id number] CC: AL TOMLIN MD;*EndCC*
[2016-08-23 19:52] VITALS: BP 130/79; RESP 20
[2016-08-24] MEDS ORDERED: SIMV20TA PO (15:54)
[2016-08-24] MEDS ORDERED: HYDR-902 PO (15:56)
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
== END 2016-08-23 21:15 | disposition home or self-care (01) | DRG 406 ==
LOC: REC 08-15 06:44 → EDSTATUS 08-15 10:30 → ICU 08-15 19:37 → MS1 08-18 16:00 → MS2 08-22 13:25
PROVIDERS: ADMIT Surgery Surgical Oncology; ATTEND Surgery Surgical Oncology
PROC: 0FBG0ZZ Excision of Pancreas, Open Approach (ICD-10-PCS; principal; 2016-08-15 09:00)
DX: D13.6 Benign neoplasm of pancreas (principal); I27.82 Chronic pulmonary embolism; I82.5Z1 Chronic embolism and thrombosis of unspecified deep veins of right distal lower extremity; E78.5 Hyperlipidemia, unspecified; G89.18 Other acute postprocedural pain; R03.1 Nonspecific low blood-pressure reading; Z87.828 Personal history of other (healed) physical injury and trauma; Z79.02 Long term (current) use of antithrombotics/antiplatelets; Z98.890 Other specified postprocedural states; F17.200 Nicotine dependence, unspecified, uncomplicated
CPT/HCPCS: 71010; 80048; 80053; 81003; 82150; 83690; 83735; 84100; 85025; 85610; 85730; 86850; 86900; 86901; 86920; 87086; 88307; 88331; 93005; 93965; J0295; J0330; J1100; J1170; J1200; J1644; J2060; J2175; J2250; J2370; J2405; J2543; J2710; J2795; J3010; J3480; J7030

== ENCOUNTER 2016-08-24 14:18 | Inpatient (IN) | payer OTHER ==
[~2016-08-24] VITALS: Ht 168.9 cm; Wt 76.0 kg
[~2016-08-24 14:18] MED LIST: ENOX80DI12 SC; Hydrocodone/Apap (10/325) PO; IBUP800T25 PO; NORCO; RANI150T9 PO; SERT50TA PO
[2016-08-24] MEDS ORDERED: PIPER-TAZO 3.375 GM IV (PMX) 100 ML IVPB STA (14:25)
[2016-08-24] MEDS ORDERED: SOD CHLORIDE 0.9% 1,000 ML IV STA (14:25)
[2016-08-24] MEDS ORDERED: ONDANSETRON 4 MG INJ IV STA ×2 (14:25→17:38)
[2016-08-24] MEDS ORDERED: morphine 4 MG/ML VIAL IV STA (14:25)
[2016-08-24 15:17] LABS: BASOPHIL # 0.1 10^3/ul (0.0-0.1); BASOPHILS % 0.9 % (0.0-2.0); EOSINOPHILS # 0.2 10^3/ul (0.0-0.5); HEMATOCRIT 40.9 % (42.0-52.0); HEMOGLOBIN 13.5 g/dl (14.0-18.0); LYMPHOCYTES # 1.2 10^3/ul (0.8-2.9); LYMPHOCYTES % 12.1 % (15.0-51.0); MEAN CORPUSCULAR HEMOGLOBIN 30.5 pg (29.0-33.0); MEAN CORPUSCULAR VOLUME 92.4 fl (82.0-101.0); MEAN PLATELET VOLUME 7.5 fl (7.4-10.4); MONOCYTE # 0.4 10^3/ul (0.3-0.9); MONOCYTES % 4.2 % (0.0-11.0); NEUTROPHIL # 7.8 10^3/ul (1.6-7.5); NEUTROPHILS % 80.8 % (39.0-77.0); PLATELET COUNT 437 10^3/UL (140-440); RED BLOOD COUNT 4.43 10^6/ul (4.70-6.10); RED CELL DISTRIBUTION WIDTH 12.7 % (11.5-14.5); UNCORRECTED WBC 9.7 10^3/ul (4.8-10.8); WHITE BLOOD COUNT 9.7 10^3/ul (4.8-10.8)
[2016-08-24 15:22] LABS: CONDITION 1; INR 0.98
[2016-08-24 15:23] LABS: PARTIAL THROMBOPLASTIN TIME 26.8 Sec (25.0-35.0)
[2016-08-24] MEDS ORDERED: ONDANSETRON (ODT) 4 MG TAB ODT STA (15:23)
[2016-08-24 15:25] LABS: ALBUMIN 4.7 g/dl (3.3-4.9)
[2016-08-24 15:26] LABS: CHLORIDE 97 mmol/L (97-110); POTASSIUM 3.9 mmol/L (3.5-5.1); SODIUM 145 mmol/L (135-144)
[2016-08-24 15:28] LABS: ANION GAP 18 (8-16); ASPARTATE AMINO TRANSFERASE 40 IU/L (15-46); BILIRUBIN,INDIRECT 0.3 mg/dl (0-1.1); BILIRUBIN,TOTAL 0.3 mg/dl (0.2-1.3); CARBON DIOXIDE 34 mmol/L (21-31); CREATININE 0.94 mg/dl (0.61-1.24)
[2016-08-24 15:29] LABS: ALANINE AMINOTRANSFERASE 47 IU/L (13-69); ALBUMIN/GLOBULIN RATIO 1.09; ALKALINE PHOSPHATASE 104 IU/L (42-121); BLOOD UREA NITROGEN 16 mg/dl (7-20); CALCIUM 9.9 mg/dl (8.4-10.2); GLUCOSE 130 mg/dl (70-220)
[2016-08-24 15:39] LABS: TROPONIN-I < 0.012 ng/ml (0.00-0.12)
[2016-08-24] MEDS ORDERED: HYDROmorphONE 1 MG/ML SYG IV STA ×2 (15:42→17:38)
--- NOTE | 2016-08-24 15:50 | RADRPT ---
PROCEDURE: US Abdomen (right upper quadrant). CLINICAL INDICATION: Right upper quadrant abdomen pain. TECHNIQUE: Multiple real-time longitudinal and transverse images of the right upper quadrant of th e abdomen were acquired utilizing a curved array transducer. Images were reviewed on a high-resoluti on PACS workstation. COMPARISON: None FINDINGS: The liver is normal in size and echogenicity. There is no focal hepatic lesion. Color Doppler and pulsed Doppler sonography demonstrate normal a ntegrade flow in the portal vein. The gallbladder is normal with no stones or wall thickening. There is no pericholecystic fluid yanira ection. The bile ducts are normal with the common bile duct measuring 4.3 mm in diameter. The visualized portions of the pancreas are unremarkable with obscuration of the tail of the pancrea s. No free fluid is present. The right kidney measures 10.4 cm. There is normal echogenicity of the right kidney. There is no perinephric fluid collection. No hydronephrosis, mass, or calculus is seen. IMPRESSION: 1. Unremarkable right upper quadrant abdomen ultrasound. RPTAT: QQ .Jb Lewis MD, MD Date Time Electronically viewed and signed by .Jb Lewis MD, on 08/24/2016 15:50 .R/
[2016-08-24] MEDS ORDERED: SIMV20TA PO (15:54)
[2016-08-24] MEDS ORDERED: HYDR-902 PO (15:56)
[2016-08-24] MEDS ORDERED: DIATR MEGLU/DIATRIZOATE SODIUM 30 ML SOLUTION PO ONE (16:00)
[2016-08-24] MEDS ORDERED: DIATR MEGLU/DIATRIZOATE SODIUM 120 ML BTL PO SCH (16:00)
--- NOTE | 2016-08-24 16:05 | RADRPT ---
PROCEDURE: XR Chest. CLINICAL INDICATION: Shortness of breath. TECHNIQUE: Single frontal view. COMPARISON: 17:17. FINDINGS: There is mild atelectasis at the lung bases, improved. The lungs are otherwise clear. The heart size is normal. There is no pleural effusion. There is no pneumothorax. IMPRESSION: 1. Mild atelectasis at the lung bases, improved. 2. Otherwise normal chest x-ray. RPTAT: QQ .Jb Lewis MD, MD Date Time Electronically viewed and signed by .Jb Lewis MD, MD on 08/24/2016 16:05 .R/
[2016-08-24 16:29] LABS: ADD UMIC YES; URINE BILIRUBIN (Dip) NEGATIVE (NEGATIVE); URINE BLOOD (Dip) NEGATIVE (NEGATIVE); URINE COLOR LT. YELLOW (YELLOW); URINE GLUCOSE (Dip) NEGATIVE (NEGATIVE); URINE KETONES (Dip) NEGATIVE (NEGATIVE); URINE LEUKOCYTE ESTERASE (Dip) TRACE (NEGATIVE); URINE NITRITE (Dip) NEGATIVE (NEGATIVE); URINE TOTAL PROTEIN (Dip) NEGATIVE (NEGATIVE); URINE UROBILINOGEN (Dip) 0.2 E.U./dL (0.1-1.0)
[2016-08-24 16:39] LABS: URINE RBCS NONE SEEN /HPF (0)
[2016-08-24] MEDS ORDERED: SOD CHLORIDE 0.9% 100 ML ONE (17:08)
[2016-08-24] MEDS ORDERED: IOHEXOL 300MG/ML 150 ML BTL ONE (17:08)
[2016-08-24] MEDS ORDERED: ONDANSETRON 4 MG INJ IV PRN (18:00)
[2016-08-24] MEDS ORDERED: ACETAMINOPHEN 325 MG TAB PO PRN ×2 (18:00→20:30)
--- NOTE | 2016-08-24 18:00 | RADRPT ---
PROCEDURE: CT Abdomen and Pelvis with contrast. CLINICAL INDICATION: Postoperative abdominal pain TECHNIQUE: CT of the abdomen and pelvis was performed on a multi-detector scanner following the un complicated IV administration of 100 cc of Omnipaque 300. Coronal and sagittal images were reformat mahin from the axial data set. One or more of the following dose reduction techniques were used: auto mated exposure control, adjustment of the mA and/or kV according to patient size, use of iterative reconstruction technique. CTDI = 9.58 mGy. DLP = 543.3 mGy-cm. COMPARISON: CT, 05/19/2016 FINDINGS: CT abdomen: There is mild bibasilar atelectasis. The heart size is normal, without pericardial effusion. Liver , gallbladder and biliary tree are unremarkable. The patient is status post resection of the pancre atic tail. Surgical drain is identified, with tip in the pancreatic surgical bed. Spleen, adrenal g lands and kidneys are unremarkable. There is no urolithiasis or obstructive uropathy. The stomach is mildly contrast distended, but otherwise grossly unremarkable. There is no abdominal aortic aneurysm or dissection. Aortic vascular calcifications are present. T here is no retroperitoneal lymphadenopathy. The paul hepatis region is clear. CT pelvis: There is mild dilatation of stomach, duodenum and proximal jejunum, with relatively collapsed small bowel distally. Transition zone is located in the left upper quadrant adjacent to the surgical bed. Oral contrast passes through this area into distal small bowel. Considerations include ileus and partial small bowel obstruction. There is no free intraperitoneal air or abscess. No diverticulosi s, diverticulitis, colitis or appendicitis is identified. Urinary bladder is unremarkable. Small b ilateral fat containing inguinal hernias are noted, without incarceration. No pelvic mass, free flu id or lymphadenopathy is identified. The surrounding osseous structures are unremarkable. No osteolytic or osteoblastic lesion is detect ed. IMPRESSION: 1. Findings concerning for ileus or partial small bowel obstruction, as discussed above. No absces s or bowel perforation is identified. 2. The patient is status post partial pancreatectomy. Drain remains present within the surgical be d. 3. Scattered aortoiliac atherosclerotic calcifications are present. 4. No mass or lymphadenopathy is identified. 5. Small bilateral fat containing inguinal hernias are seen, without incarceration. RPTAT: TT .Aris Mayorga MD, MD Date Time Electronically viewed and signed by .Aris Mayorga MD, MD on 08/24/2016 17:59 .R/
--- NOTE | 2016-08-24 18:57 | ERA ---
ER Documentation Chief Complaint Date/Time DATE: 08/24/16 TIME: 18:54 Chief Complaint POST OP VOMITING SINCE TODAY. NO RECENT FEVERS. NO BLEEDING FROM OP SITE HPI Patient is a 50-year-old male with recent pancreas surgery who presents with abdominal pain and vomiting. He said that at 5 AM he woke up sweating and felt hungry. He tried to eat some food but had projectile vomiting and has been not been able to keep anything down. He tried [place] for pain. He has diffuse abdominal pain and feels like there is a "blockage". He had surgery last Monday with removal of the tail of the pancreas by Dr. Kuhn. His primary doctor is Dr. Clark. ROS All systems reviewed and are negative except as per history of present illness. Medications Home Meds Reported Medications Hydrocodone/Acetaminophen ([place] 10-325 Tablet) 1 Each Tablet, 1 EACH PO Q4, TAB 08/24/16 Simvastatin* (Zocor*) 20 Mg Tablet, 20 MG PO QHS, #30 TAB 08/24/16 Ranitidine Hcl* (Zantac*) 150 Mg Tablet, 150 MG PO BID, #60 TAB 08/15/16 Sertraline Hcl* (Zoloft*) 50 Mg Tablet, 50 MG PO BID, #30 TAB 08/15/16 Enoxaparin Sodium* (Lovenox*) 80 Mg/0.8 Ml Disp.syrin, 80 MG SC Q12, SYR 08/15/16 Discontinued Reported Medications Ibuprofen* (Ibuprofen*) 800 Mg Tablet, 800 MG PO Q8, TAB 08/15/16 [[place]] No Conflict Check, PRN 08/15/16 Discontinued Scripts [Hydrocodone/Apap (10/325)] 1 TAB TAB No Conflict Check, 1 TAB PO Q4H Y for PAIN , #30 Prov:SAVANNA PARR 08/23/16 Allergies Allergies: Coded Allergies: No Known Allergy (Unverified , 08/24/16) PMhx/Soc History of Surgery: Yes (MULTIPLE SURGERIES, ABDOMINAL AND EXTREMITIES, ) Anesthesia Reaction: No Hx Neurological Disorder: No Hx Respiratory Disorders: Yes (HX PULMONARY EMBOLISM) Hx Cardiac Disorders: No Hx Psychiatric Problems: Yes (ON ZOLOFT) Hx Miscellaneous Medical Probl: Yes (GI OBSTRUCTION) Hx Alcohol Use: Yes (SOMETIME) Hx Substance Use: Yes (MARAJUANA) Hx Tobacco Use: Yes (SOMETIMES) Smoking Status: Never smoker FmHx Family History: No diabetes Physical Exam Vitals Vital Signs Date Time Temp Pulse Resp B/P Pulse Ox O2 Delivery O2 Flow Rate FiO2 08/24/16 16:17 87 18 138/90 96 Room Air 08/24/16 14:21 98.5 90 20 153/79 98 Physical Exam Const: Moderate distress secondary to pain Head: Atraumatic Eyes: Normal Conjunctiva ENT: Normal External Ears, Nose and Mouth. Neck: Full range of motion..~ No meningismus. Resp: Clear to auscultation bilaterally Cardio: Regular rate and rhythm, no murmurs Abd: Diffuse abdominal pain with tenderness to palpation Skin: Incision of the abdomen is clean, dry, and intact Back: No midline or flank tenderness Ext: No cyanosis, or edema Neur: Awake and alert Psych: Normal Mood and Affect Result Diagram: 08/24/16 1500 08/24/16 1500 Results 24 hrs Laboratory Tests Test 08/24/16 15:00 08/24/16 16:00 Activated Partial Thromboplast Time 26.8Sec Alanine Aminotransferase (ALT/SGPT) 47IU/L Albumin 4.7g/dl Albumin/Globulin Ratio 1.09 Alkaline Phosphatase 104IU/L Anion Gap 18 Aspartate Amino Transf (AST/SGOT) 40IU/L Basophils # 0.110^3/ul Basophils % 0.9% Blood Urea Nitrogen 16mg/dl Calcium Level 9.9mg/dl Carbon Dioxide Level 34mmol/L Chloride Level 97mmol/L Creatinine 0.94mg/dl Direct Bilirubin 0.00mg/dl Eosinophils # 0.210^3/ul Eosinophils % 2.0% Globulin 4.30g/dl Glucose Level 130mg/dl Hematocrit 40.9% Hemoglobin 13.5g/dl INR International Normalized Ratio 0.98 Indirect Bilirubin 0.3mg/dl Lipase 28U/L Lymphocytes # 1.210^3/ul Lymphocytes % 12.1% Mean Corpuscular Hemoglobin 30.5pg Mean Corpuscular Hemoglobin Concent 33.0g/dl Mean Corpuscular Volume 92.4fl Mean Platelet Volume 7.5fl Monocytes # 0.410^3/ul Monocytes % 4.2% Neutrophils # 7.810^3/ul Neutrophils % 80.8% Nucleated Red Blood Cells # 0.010^3/ul Nucleated Red Blood Cells % 0.0/100WBC Platelet Count 31470^3/UL Potassium Level 3.9mmol/L Prothrombin Time 13.0Sec Prothrombin Time Ratio 1.0 Red Blood Count 4.4310^6/ul Red Cell Distribution Width 12.7% Sodium Level 145mmol/L Total Bilirubin 0.3mg/dl Total Protein 9.0g/dl Troponin I < 0.012ng/ml White Blood Count 9.710^3/ul Urine Amorphous Urates MANY Urine Bilirubin NEGATIVE Urine Clarity SLIGHTLY CLOUDY Urine Color LT. YELLOW Urine Glucose NEGATIVE% Urine Hemoglobin NEGATIVE Urine Ketones NEGATIVE Urine Leukocyte Esterase TRACE Urine Microscopic RBC NONE SEEN/HPF Urine Microscopic WBC 0-2/HPF Urine Nitrite NEGATIVE Urine Specific [place] 1.010 Urine Total Protein NEGATIVE Urine Urobilinogen 0.2 E.U./dL Urine pH 8.5 Current Medications Medications (Trade) Dose Ordered Sig/Braden Route PRN Reason Start Time Stop Time Status Last Admin Dose Admin Sodium Chloride (NS) 1,000 ml @ 1,000 mls/hr Q1H STAT IV 08/24/16 14:25 08/24/16 15:24 DC 08/24/16 15:19 Morphine Sulfate (morphine) 4 mg ONCE STAT IV 08/24/16 14:25 08/24/16 14:26 DC 08/24/16 15:19 Ondansetron HCl 4 mg 4 mg ONCE STAT IV 08/24/16 14:25 08/24/16 14:26 DC 08/24/16 15:19 Piperacillin Sod/ Tazobactam Sod (Zosyn 3.375gm/ 100 ml (Pmx)) 100 ml @ 200 mls/hr ONCE STAT IVPB 08/24/16 14:25 08/24/16 14:54 DC 08/24/16 15:18 Ondansetron HCl (Zofran Odt) 4 mg ONCE STAT ODT 08/24/16 15:23 08/24/16 15:24 DC 08/24/16 15:26 Diatrizoate Meglum/ Diatrizoate Sod (Gastrografin 66-10 Solution) 30 ml ONCE ONCE PO 08/24/16 16:00 08/24/16 16:01 Cancel Hydromorphone HCl (Dilaudid) 1 mg ONCE STAT IV 08/24/16 15:42 08/24/16 15:43 DC 08/24/16 15:45 Diatrizoate Meglum/ Diatrizoate Sod (Gastrografin 66-10 Solution) 30 ml ONCE PO 08/24/16 16:00 08/24/16 16:01 DC 08/24/16 15:59 IV Flush 10 ml 10 ml STK-MED ONCE .ROUTE 08/24/16 17:08 08/24/16 17:09 DC 08/24/16 17:50 Sodium Chloride (NS) 100 ml @ ud STK-MED ONCE .ROUTE 08/24/16 17:08 08/24/16 17:09 DC 08/24/16 17:50 Iohexol (Omnipaque 300mg/ ml) 150 ml STK-MED ONCE .ROUTE 08/24/16 17:08 08/24/16 17:09 DC 08/24/16 17:50 Hydromorphone HCl (Dilaudid) 1 mg ONCE STAT IV 08/24/16 17:38 08/24/16 17:40 DC 08/24/16 17:59 Ondansetron HCl (Zofran Inj) 4 mg ONCE STAT IV 08/24/16 17:38 08/24/16 17:40 DC 08/24/16 17:59 Ondansetron HCl (Zofran Inj) 4 mg BRIDGE ORDER PRN IV NAUSEA AND/OR VOMITING 08/24/16 18:00 08/25/16 17:59 Acetaminophen (Tylenol Tab) 650 mg ER BRIDGE PRN PO MILD PAIN/FEVER 08/24/16 18:00 08/25/16 17:59 Procedures/MDM CT scan shows partial small bowel obstruction per radiology. Ultrasound of the right upper quadrant negative per radiology. Chest x-ray negative for pneumonia or pneumothorax per radiology. Smoking Cessation Therapy: Pt. was lectured for greater than 3 minutes on the health risks of continued smoking and the benefits of cessation. Patient is a 50-year-old male with recent abdominal surgery who presents with vomiting and abdominal pain. He was found to have small bowel obstruction. The patient will be admitted to the care of Dr. Bell as he has [employer] insurance. The patient required multiple doses of narcotic and antiemetic medicines. Dr. Ashraf will see the patient in consultation as he is covering for Dr. Kuhn. At this point I doubt pancreatitis, cholecystitis, appendicitis, or sepsis. The patient was covered with Zosyn empirically given the recent surgery. Departure Diagnosis: Primary Impression: Vomiting Qualified Code: R11.2 - Intractable vomiting with nausea, unspecified vomiting type Additional Impressions: Abdominal pain Qualified Code: R10.84 - Generalized abdominal pain Small bowel obstruction Condition: JIMBO Lay MD Aug 24, 2016 18:57
[2016-08-24 19:22] VITALS: PULSE 77
--- NOTE | 2016-08-24 19:57 | QN ---
Documentation Comment [id number] PEG HUNTER MD Aug 24, 2016 19:57
[2016-08-24] MEDS ORDERED: DOCUSATE SODIUM 100 MG CAP PO PRN (20:30)
[2016-08-24] MEDS ORDERED: MAGNESIUM HYDROXIDE 30ML CUP PO PRN (20:30)
[2016-08-24] MEDS ORDERED: HYDROCODONE/APAP (10/325) TAB PO PRN (20:30)
[2016-08-24] MEDS ORDERED: NACL 0.9% 3 ML SYG IV SCH (20:30)
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
[2016-08-24 21:30] VITALS: BP 135/82; RESP 18
[2016-08-24 22:00] VITALS: Ht 168.9 cm; Wt 76.0 kg
[2016-08-24] MEDS: DEXTROSE 5%-0.45% NACL 1,000 ML IV SCH (22:14)
[2016-08-24] MEDS: RANITIDINE 150 MG TAB PO SCH (22:14)
[2016-08-24] MEDS: SERTRALINE 50 MG TAB PO SCH (22:15)
[2016-08-24] MEDS: ENOXAPARIN 80 MG/0.8 ML SYG SC SCH (22:17)
[2016-08-24] MEDS: ONDANSETRON 4 MG INJ IV PRN (22:18)
[2016-08-24] MEDS: morphine 2 MG INJ IV PRN (22:18)
[2016-08-24] MEDS: ZOLPIDEM 5 MG TAB PO PRN (22:18)
[2016-08-25] MEDS: morphine 2 MG INJ IV PRN ×6 (02:14→22:41)
[2016-08-25] MEDS: ONDANSETRON 4 MG INJ IV PRN ×3 (06:18→18:46)
[2016-08-25] MEDS: PANTOPRAZOLE 40 MG INJ IV SCH (06:18)
[2016-08-25 07:43] VITALS: BP 119/77; RESP 16
[2016-08-25] MEDS: RANITIDINE 150 MG TAB PO SCH ×2 (08:55→20:10)
[2016-08-25] MEDS: SERTRALINE 50 MG TAB PO SCH ×2 (08:55→20:10)
[2016-08-25] MEDS: ENOXAPARIN 80 MG/0.8 ML SYG SC SCH ×2 (09:02→20:14)
[2016-08-25] MEDS: DEXTROSE 5%-0.45% NACL 1,000 ML IV SCH ×2 (10:18→14:10)
[2016-08-25 10:31] LABS: BASOPHILS % 0.6 % (0.0-2.0); EOSINOPHILS # 0.5 10^3/ul (0.0-0.5); EOSINOPHILS % 6.5 % (0.0-7.0); HEMATOCRIT 32.9 % (42.0-52.0); HEMOGLOBIN 11.1 g/dl (14.0-18.0); LYMPHOCYTES # 1.7 10^3/ul (0.8-2.9); LYMPHOCYTES % 21.5 % (15.0-51.0); MEAN CORPUSCULAR HEMOGLOBIN 31.6 pg (29.0-33.0); MEAN CORPUSCULAR HGB CONC 33.8 g/dl (32.0-37.0); MEAN CORPUSCULAR VOLUME 93.5 fl (82.0-101.0); MONOCYTE # 0.5 10^3/ul (0.3-0.9); MONOCYTES % 6.6 % (0.0-11.0); NEUTROPHIL # 5.2 10^3/ul (1.6-7.5); NEUTROPHILS % 64.8 % (39.0-77.0); PLATELET COUNT 340 10^3/UL (140-440); RED BLOOD COUNT 3.52 10^6/ul (4.70-6.10); RED CELL DISTRIBUTION WIDTH 12.9 % (11.5-14.5)
[2016-08-25 10:33] LABS: CONDITION 1
[2016-08-25 10:40] LABS: ALBUMIN 3.4 g/dl (3.3-4.9)
[2016-08-25 10:41] LABS: POTASSIUM 4.6 mmol/L (3.5-5.1)
[2016-08-25 10:43] LABS: ALBUMIN/GLOBULIN RATIO 1.21; BILIRUBIN,INDIRECT 0.2 mg/dl (0-1.1); BILIRUBIN,TOTAL 0.2 mg/dl (0.2-1.3); CREATININE 0.91 mg/dl (0.61-1.24); TOTAL PROTEIN 6.2 g/dl (6.1-8.1)
[2016-08-25 10:44] LABS: CALCIUM 8.7 mg/dl (8.4-10.2)
--- NOTE | 2016-08-25 13:06 | RADRPT ---
PROCEDURE: XR Abdomen 1 vw. CLINICAL INDICATION: Abdominal pain TECHNIQUE: AP view of the abdomen COMPARISON: CT abdomen/pelvis 08/24/2016 FINDINGS: Status post partial pancreatectomy with a drain present in the left upper quadrant. No organomegaly is identified. There is a nonspecific bowel gas pattern. There is no evidence of b owel obstruction. No free air is identified. No calculi are identified. The axial skeleton is unre markable. IMPRESSION: Status post partial pancreatectomy with a drain present in the left upper quadrant No evidence of bowel obstruction RPTAT: HGDB .Daniel Nguyen MD, MD Date Time Electronically viewed and signed by .Daniel Nguyen MD, MD on 08/25/2016 13:06 .B/
--- NOTE | 2016-08-25 13:50 | PN ---
Date/Time of Note Date/Time of Note DATE: 08/25/16 TIME: 13:49 Assessment/Plan VTE Prophylaxis VTE Prophylaxis Intervention: other Lines/Catheters IV Catheter Type (from [facility]): Peripheral IV Urinary Cath still in place: No Assessment/Plan Chief Complaint/Hosp Course IMPRESSION: 1. Abdominal pain. 2. Ileus.better 3. The patient has hypernatremia. 4. Partial pancreatectomy. 5. History of colectomy per current chart. 6. The patient has a history of pancreatitis plan per surgery Problems: Subjective 24 Hr Interval Summary Respiratory: no complaints Cardiovascular: no complaints Gastrointestinal: pain (mild+) Exam/Review of Systems Vital Signs Vitals Vital Signs Date Time Temp Pulse Resp B/P Pulse Ox O2 Delivery O2 Flow Rate FiO2 08/25/16 07:43 99.3 77 16 119/77 97 08/24/16 19:22 Room Air Intake and Output 08/24/16 08/24/16 08/25/16 15:00 23:00 07:00 Intake Total 490 ml Output Total 0 ml Balance 0 ml 490 ml Exam Neck: supple Respiratory: clear to auscultation Cardiovascular: regular rate and rhythm Gastrointestinal: bowel sounds (+), soft Extremities: edema (+) Results Result Diagram: 08/25/16 0932 08/25/16 0500 Results 24 hrs Laboratory Tests Test 08/24/16 15:00 08/24/16 16:00 08/25/16 05:00 08/25/16 09:32 Activated Partial Thromboplast Time 26.8 Alanine Aminotransferase (ALT/SGPT) 47 49 Albumin 4.7 3.4 # Albumin/Globulin Ratio 1.09 1.21 Alkaline Phosphatase 104 71 Anion Gap 18 H 15 Aspartate Amino Transf (AST/SGOT) 40 25 Basophils # 0.1 0.0 Basophils % 0.9 0.6 Blood Urea Nitrogen 16 15 Calcium Level 9.9 8.7 Carbon Dioxide Level 34 H 26 Chloride Level 97 102 Creatinine 0.94 0.91 Direct Bilirubin 0.00 0.00 Eosinophils # 0.2 0.5 Eosinophils % 2.0 6.5 Globulin 4.30 H 2.80 Glucose Level 130 145 Hematocrit 40.9 L 32.9 L Hemoglobin 13.5 L 11.1 L INR International Normalized Ratio 0.98 Indirect Bilirubin 0.3 0.2 Lipase 28 Lymphocytes # 1.2 1.7 Lymphocytes % 12.1 L 21.5 Mean Corpuscular Hemoglobin 30.5 31.6 Mean Corpuscular Hemoglobin Concent 33.0 33.8 Mean Corpuscular Volume 92.4 93.5 Mean Platelet Volume 7.5 8.0 Monocytes # 0.4 0.5 Monocytes % 4.2 6.6 Neutrophils # 7.8 H 5.2 Neutrophils % 80.8 H 64.8 Nucleated Red Blood Cells # 0.0 0.0 Nucleated Red Blood Cells % 0.0 0.0 Platelet Count 437 # 340 # Potassium Level 3.9 4.6 Prothrombin Time 13.0 Prothrombin Time Ratio 1.0 Red Blood Count 4.43 L 3.52 #L Red Cell Distribution Width 12.7 12.9 Sodium Level 145 H 138 Total Bilirubin 0.3 0.2 Total Protein 9.0 H 6.2 # Troponin I < 0.012 White Blood Count 9.7 8.0 Urine Amorphous Urates MANY Urine Bilirubin NEGATIVE Urine Clarity SLIGHTLY CLOUDY Urine Color LT. YELLOW Urine Glucose NEGATIVE Urine Hemoglobin NEGATIVE Urine Ketones NEGATIVE Urine Leukocyte Esterase TRACE H Urine Microscopic RBC NONE SEEN Urine Microscopic WBC 0-2 Urine Nitrite NEGATIVE Urine Specific [place] 1.010 Urine Total Protein NEGATIVE Urine Urobilinogen 0.2 E.U./dL Urine pH 8.5 Medications Medications Current Medications Enoxaparin Sodium (Lovenox) 80 mg Q12 SC Last administered on 08/25/16 09:02; Admin Dose 80 MG; Start 08/24/16 at 21:00 Acetaminophen/ Hydrocodone Bitart ([place] (10/325)) 1 tab Q4H PRN PO pain; Start 08/24/16 at 20:30 Ranitidine HCl (Zantac) 150 mg BID PO Last administered on 08/25/16 08:55; Admin Dose 150 MG; Start 08/24/16 at 21:00 Sertraline HCl 50 mg 50 mg BID PO Last administered on 08/25/16 08:55; Admin Dose 50 MG; Start 08/24/16 at 21:00 Dextrose/Sodium Chloride (D5-1/2ns) 1,000 ml @ 70 mls/hr [id number] IV Last administered on 08/24/16 22:14; Admin Dose 70 MLS/HR; Start 08/24/16 at 20:06 Ondansetron HCl (Zofran Inj) 4 mg Q6H PRN IV NAUSEA AND/OR VOMITING Last administered on 08/25/16 12:07; Admin Dose 4 MG; Start 08/24/16 at 20:30 Acetaminophen (Tylenol Tab) 650 mg Q6H PRN PO PAIN LEVEL 1-3 OR FEVER; Start at 20:30 Docusate Sodium (Colace) 100 mg Q12H PRN PO CONSTIPATION; Start 08/24/16 at 20: 30 Magnesium Hydroxide (Milk Of Mag) 30 ml DAILY PRN PO CONSTIPATION; Start at 20:30 Pantoprazole (Protonix Iv) 40 mg DAILY@06 IV Last administered on 08/25/16 06: 18; Admin Dose 40 MG; Start 08/25/16 at 06:00 Zolpidem Tartrate (Ambien) 10 mg HS PRN PO INSOMNIA Last administered on 22:18; Admin Dose 10 MG; Start 08/24/16 at 22:00 Morphine Sulfate (morphine) 2 mg Q4H PRN IV SEVERE PAIN Last administered on 10:18; Admin Dose 2 MG; Start 08/24/16 at 22:00 EPG HUNTER MD Aug 25, 2016 13:50
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
[2016-08-25 19:45] VITALS: BP 136/71; RESP 16
[2016-08-25] MEDS: ZOLPIDEM 5 MG TAB PO PRN (22:42)
[2016-08-26] MEDS: morphine 2 MG INJ IV PRN ×4 (03:15→15:04)
[2016-08-26] MEDS: PANTOPRAZOLE 40 MG INJ IV SCH (06:05)
[2016-08-26 06:40] LABS: AMYLASE 85 U/L (11-123)
[2016-08-26 06:44] LABS: BASOPHILS % 0.5 % (0.0-2.0); EOSINOPHILS # 0.5 10^3/ul (0.0-0.5); EOSINOPHILS % 6.9 % (0.0-7.0); HEMATOCRIT 33.3 % (42.0-52.0); HEMOGLOBIN 11.2 g/dl (14.0-18.0); LYMPHOCYTES # 2.2 10^3/ul (0.8-2.9); LYMPHOCYTES % 32.5 % (15.0-51.0); MEAN CORPUSCULAR HEMOGLOBIN 31.4 pg (29.0-33.0); MEAN CORPUSCULAR HGB CONC 33.7 g/dl (32.0-37.0); MEAN CORPUSCULAR VOLUME 93.4 fl (82.0-101.0); MEAN PLATELET VOLUME 7.9 fl (7.4-10.4); MONOCYTE # 0.6 10^3/ul (0.3-0.9); MONOCYTES % 8.7 % (0.0-11.0); NEUTROPHIL # 3.5 10^3/ul (1.6-7.5); NEUTROPHILS % 51.4 % (39.0-77.0); PLATELET COUNT 342 10^3/UL (140-440); RED BLOOD COUNT 3.57 10^6/ul (4.70-6.10); RED CELL DISTRIBUTION WIDTH 12.6 % (11.5-14.5); UNCORRECTED WBC 6.9 10^3/ul (4.8-10.8); WHITE BLOOD COUNT 6.9 10^3/ul (4.8-10.8)
[2016-08-26 07:03] LABS: CONDITION 1
[2016-08-26 07:33] VITALS: BP 120/86; RESP 18
[2016-08-26] MEDS: SERTRALINE 50 MG TAB PO SCH (08:41)
[2016-08-26] MEDS: RANITIDINE 150 MG TAB PO SCH (08:41)
[2016-08-26] MEDS: ENOXAPARIN 80 MG/0.8 ML SYG SC SCH (08:43)
[2016-08-26] MEDS ORDERED: MINERAL OIL 30ML CUP PO ONE (11:30)
--- NOTE | 2016-08-26 12:57 | PN ---
DATE: 08/26/2016 SUBJECTIVE: He is admitted, has had no bowel movement, but has the feeling that still he has a lot stooling in his abdomen. No nausea, no vomiting. Tolerated diet so far. OBJECTIVE: VITAL SIGNS: Temperature 98.7, pulse rate 70, regular, respirations 18, blood pressure 120/86, satu ration 98% on room air. LABORATORIES: WBC 6900, hemoglobin 11.2, hematocrit 33.3. Amylase 85, normal, lipase 65, normal. ABDOMEN: Soft, bowel sounds present. There is no rebound tenderness present. Wound is healing wel l. Sinan-Hunter in place. EXTREMITIES: Lower extremity: No calf tenderness. ASSESSMENT: 1. Status post distal pancreatectomy for cancer of pancreas. 2. Status post partial obstruction, appears that has resolved. PLAN: Observe the patient for another meal today, lunch, and if everything is okay and he tolerates , he can be discharged today after noon with mineral oil and also a prescription for pain. Follow u p with Dr. Kuhn' office. Dictated By: BOB COVARRUBIAS/NTS Conf#: [id number] DID#: [id number]
--- NOTE | 2016-08-26 15:35 | PDOCDIS ---
Discharge Instructions CONDITION Patient Condition: Stable HOME CARE INSTRUCTIONS: Special Diet: soft diet ACTIVITY: Activity Restrictions: Slowly Increase Activity FOLLOW UP/APPOINTMENTS Appointments f/u own pcp [address] lora 1 wk PEG HUNTER MD Aug 26, 2016 15:35
[2016-08-26] MEDS ORDERED: OXYC5CAP17 PO (15:36)
--- NOTE | 2016-08-26 15:50 | QN ---
Documentation Comment [id number] PEG HUNTER MD Aug 26, 2016 15:50
[2016-08-27] MEDS ORDERED: PANTOPRAZOLE (EC) 40 MG TAB PO SCH (06:00)
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
== END 2016-08-26 16:33 | disposition home or self-care (01) | DRG 389 ==
LOC: E/R 14:18 → PP2 20:44
PROVIDERS: ADMIT Internal Medicine Nephrology; ATTEND Internal Medicine Nephrology
DX: K56.0 Paralytic ileus (principal); E87.0 Hyperosmolality and hypernatremia; C25.9 Malignant neoplasm of pancreas, unspecified; D64.9 Anemia, unspecified; E78.5 Hyperlipidemia, unspecified; Z86.718 Personal history of other venous thrombosis and embolism; Z79.01 Long term (current) use of anticoagulants; Z86.711 Personal history of pulmonary embolism; Z90.411 Acquired partial absence of pancreas; Z90.49 Acquired absence of other specified parts of digestive tract
CPT/HCPCS: 36415; 71010; 74010; 74177; 76705; 80053; 81001; 81003; 82150; 83690; 84484; 85025; 85610; 85730; 87081; 93005; 96374; 96375; 96376; C9113; J1170; J2270; J2405; J2543; J7030; J7042; Q9967

== ENCOUNTER 2017-01-25 18:47 | Inpatient (IN) | payer OTHER ==
[~2017-01-25] VITALS: Ht 167.6 cm; Wt 75.5 kg
[~2017-01-25 18:47] MED LIST changes: -Hydrocodone/Apap (10/325) PO; -IBUP800T25 PO; -NORCO; +OXYC5CAP17 PO; +SIMV20TA PO
[2017-01-25] MEDS ORDERED: ONDANSETRON 4 MG INJ IV STA (21:13)
[2017-01-25] MEDS ORDERED: morphine 4 MG/ML VIAL IV STA (21:13)
[2017-01-25] MEDS ORDERED: SOD CHLORIDE 0.9% 1,000 ML IV STA (21:13)
[2017-01-25 21:43] LABS: ADD UMIC YES; UR ASCORBIC ACID NEGATIVE (NEGATIVE); UR BACTERIA FEW /HPF (NONE SEEN); UR BILIRUBIN (Dip) NEGATIVE (NEGATIVE); UR BLOOD (Dip) 1+ mg/dL (NEGATIVE); UR CLARITY SLIGHTLY CLOUDY (CLEAR); UR COLOR YELLOW (YELLOW); UR GLUCOSE (Dip) NEGATIVE (NEGATIVE); UR KETONES (Dip) NEGATIVE (NEGATIVE); UR LEUKOCYTE ESTERASE (Dip) 2+ Leu/ul (NEGATIVE); UR NITRITE (Dip) NEGATIVE (NEGATIVE); UR RBC 1 /HPF (0-5); UR SPECIFIC GRAVITY (Dip) 1.009 (1.003-1.030); UR TOTAL PROTEIN (Dip) NEGATIVE (NEGATIVE); UR UROBILINOGEN (Dip) NEGATIVE (NEGATIVE)
[2017-01-25] MEDS ORDERED: RANI150T5 PO (22:00)
[2017-01-25] MEDS ORDERED: ONDANSETRON 4 MG INJ IV PRN (22:00)
[2017-01-25] MEDS ORDERED: CEFTRIAXONE 1 GM/50 ML (PMX) 50 ML IVPB ONE (22:00)
[2017-01-25] MEDS ORDERED: ACETAMINOPHEN 325 MG TAB PO PRN (22:00)
[2017-01-25] MEDS ORDERED: SERT-165 PO (22:01)
[2017-01-25] MEDS ORDERED: CARI250T PO (22:03)
[2017-01-25] MEDS ORDERED: CARI350T29 PO (22:04)
[2017-01-25] MEDS ORDERED: CHOL100062 PO (22:05)
[2017-01-25] MEDS ORDERED: ZOLP5TAB7 PO (22:05)
[2017-01-25] MEDS ORDERED: HYDR-902 PO (22:07)
[2017-01-25 22:08] LABS: ADD SCAN DIFF NO
[2017-01-25 22:10] LABS: BASOPHILS % 0.4 % (0.0-2.0); EOSINOPHILS # 0.3 10^3/ul (0.0-0.5); EOSINOPHILS % 3.5 % (0.0-7.0); HEMATOCRIT 43.2 % (42.0-52.0); HEMOGLOBIN 14.6 g/dl (14.0-18.0); LYMPHOCYTES # 2.8 10^3/ul (0.8-2.9); LYMPHOCYTES % 30.9 % (15.0-51.0); MEAN CORPUSCULAR HEMOGLOBIN 31.7 pg (29.0-33.0); MEAN CORPUSCULAR HGB CONC 33.8 g/dl (32.0-37.0); MEAN CORPUSCULAR VOLUME 93.7 fl (82.0-101.0); MEAN PLATELET VOLUME 9.3 fl (7.4-10.4); MONOCYTE # 0.8 10^3/ul (0.3-0.9); MONOCYTES % 9.4 % (0.0-11.0); NEUTROPHIL # 4.9 10^3/ul (1.6-7.5); NEUTROPHILS % 54.9 % (39.0-77.0); PLATELET COUNT 228 10^3/UL (140-415); RED BLOOD COUNT 4.61 10^6/ul (4.70-6.10); RED CELL DISTRIBUTION WIDTH 12.8 % (11.5-14.5)
--- NOTE | 2017-01-25 22:22 | ERA ---
ER Documentation Chief Complaint Date/Time DATE: 01/25/17 TIME: 22:19 Chief Complaint NV since yesterday; no appettite; abd pain HPI Patient is a 51-year-old male with previous abdominal surgeries who presents with abdominal pain. The patient's abdominal pain started 2 days ago. He has constipation. He was given Creon recently by his doctor. He said that he cannot hold down even water and he vomits everything. He feels throat irritation. He said that he cannot swallow his saliva and has epigastric pain. He tried milk of magnesia and he tried [place] without much help. Upon review of old medical records this is the patient's third visit to the ER since July 2016. Review of the emergency department information exchange system shows visits to 2 separate emergency departments. He said that his primary doctor is Dr. Clark and his surgeon is Dr. Kuhn. ROS All systems reviewed and are negative except as per history of present illness. Medications Home Meds Reported Medications Hydrocodone/Acetaminophen ([place] 10-325 Tablet) 1 Each Tablet, 1 EACH PO TID, TAB 01/25/17 Cholecalciferol* (Vitamin D3*) 1,000 Unit Tablet, 1000 UNIT PO DAILY, TAB 01/25/17 Zolpidem Tartrate* (Zolpidem Tartrate*) 5 Mg Tablet, 10 MG PO QHS Y for INSOMNIA , #30 TAB 01/25/17 Carisoprodol* (Carisoprodol*) 350 Mg Tablet, 350 MG PO BID Y for MUSCLE SPASMS, TAB 01/25/17 Sertraline Hcl* (Sertraline Hcl*) 100 Mg Tablet, 100 MG PO DAILY, #30 TAB 01/25/17 Ranitidine Hcl* (Ranitidine Hcl*) 150 Mg Tablet, 150 MG PO DAILY, #30 TAB 01/25/17 Simvastatin* (Zocor*) 20 Mg Tablet, 20 MG PO QHS, #30 TAB 08/24/16 Enoxaparin Sodium* (Lovenox*) 80 Mg/0.8 Ml Disp.syrin, 80 MG SC Q12, SYR 08/15/16 Discontinued Reported Medications Carisoprodol* (Soma*) 250 Mg Tablet, 250 MG PO NEEDED Y for BACK PAIN, TAB 01/25/17 Ranitidine Hcl* (Zantac*) 150 Mg Tablet, 150 MG PO BID, #60 TAB 08/15/16 Sertraline Hcl* (Zoloft*) 50 Mg Tablet, 50 MG PO BID, #30 TAB 08/15/16 Discontinued Scripts Oxycodone Hcl* (IR) (Oxycodone Hcl*) 5 Mg Capsule, 5 MG PO Q4H Y for PAIN, #20 CAP Prov:PEG HUNTER MD 08/26/16 Allergies Allergies: Coded Allergies: No Known Allergy (Unverified , 01/25/17) PMhx/Soc History of Surgery: Yes (MULTIPLE SURGERIES A CHILD, AND THRU 2017) Anesthesia Reaction: No Hx Neurological Disorder: No Hx Respiratory Disorders: Yes (ASTHMA) Hx Cardiac Disorders: No Hx Psychiatric Problems: No Hx Miscellaneous Medical Probl: No Hx Alcohol Use: Yes (BEER 3-4 TIMES/WEEK) Hx Substance Use: Yes (MARIJUANA) Hx Tobacco Use: Yes (CIGARETTES) Smoking Status: Current every day smoker FmHx Family History: No diabetes Physical Exam Vitals Vital Signs Date Time Temp Pulse Resp B/P Pulse Ox O2 Delivery O2 Flow Rate FiO2 01/25/17 19:02 99.4 93 20 133/89 97 Physical Exam Const: Moderate distress secondary to pain Head: Atraumatic Eyes: Normal Conjunctiva ENT: Normal External Ears, Nose and Mouth. Neck: Full range of motion..~ No meningismus. Resp: Clear to auscultation bilaterally Cardio: Regular rate and rhythm, no murmurs Abd: Soft, epigastric tenderness to palpation without rebound or guarding Skin: No petechiae or rashes Back: No midline or flank tenderness Ext: No cyanosis, or edema Neur: Awake and alert Psych: Normal Mood and Affect Result Diagram: 01/25/172143 Results 24 hrs Laboratory Tests Test 01/25/17 21:10 01/25/17 21:44 Urine Color YELLOW Urine Clarity SLIGHTLY CLOUDY Urine pH 8.0 Urine Specific [place] 1.009 Urine Ketones NEGATIVEmg/dL Urine Nitrite NEGATIVEmg/dL Urine Bilirubin NEGATIVEmg/dL Urine Urobilinogen NEGATIVEmg/dL Urine Leukocyte Esterase 2+Cisco/ul Urine Microscopic RBC 1/HPF Urine Microscopic WBC 1/HPF Urine Bacteria FEW/HPF Urine Hemoglobin 1+mg/dL Urine Glucose NEGATIVEmg/dL Urine Total Protein NEGATIVEmg/dl White Blood Count 9.010^3/ul Red Blood Count 4.6110^6/ul Hemoglobin 14.6g/dl Hematocrit 43.2% Mean Corpuscular Volume 93.7fl Mean Corpuscular Hemoglobin 31.7pg Mean Corpuscular Hemoglobin Concent 33.8g/dl Red Cell Distribution Width 12.8% Platelet Count 38112^3/UL Mean Platelet Volume 9.3fl Neutrophils % 54.9% Lymphocytes % 30.9% Monocytes % 9.4% Eosinophils % 3.5% Basophils % 0.4% Nucleated Red Blood Cells % 0.0/100WBC Neutrophils # 4.910^3/ul Lymphocytes # 2.810^3/ul Monocytes # 0.810^3/ul Eosinophils # 0.310^3/ul Basophils # 0.010^3/ul Nucleated Red Blood Cells # 0.010^3/ul Current Medications Medications (Trade) Dose Ordered Sig/Braden Route PRN Reason Start Time Stop Time Status Last Admin Dose Admin Sodium Chloride (NS) 1,000 ml @ 1,000 mls/hr Q1H STAT IV 01/25/17 21:13 01/25/17 22:12 DC 01/25/17 21:50 Morphine Sulfate (morphine) 4 mg ONCE STAT IV 01/25/17 21:13 01/25/17 21:14 DC 01/25/17 21:50 Ondansetron HCl 4 mg 4 mg ONCE STAT IV 01/25/17 21:13 01/25/17 21:14 DC 01/25/17 21:50 Ceftriaxone Sodium (Rocephin) 50 ml @ 100 mls/hr ONCE ONCE IVPB 01/25/17 22:00 01/25/17 22:29 01/25/17 22:08 Ondansetron HCl (Zofran Inj) 4 mg BRIDGE ORDER PRN IV NAUSEA AND/OR VOMITING 01/25/17 22:00 01/26/17 21:59 Acetaminophen (Tylenol Tab) 650 mg ER BRIDGE PRN PO MILD PAIN/FEVER 01/25/17 22:00 01/26/17 21:59 Procedures/MDM CT scan of the abdomen pelvis is pending at this time. Smoking Cessation Therapy: Pt. was lectured for greater than 3 minutes on the health risks of continued smoking and the benefits of cessation. Patient is a 51-year-old male with previous abdominal surgeries who presents with abdominal pain and vomiting. He has intractable vomiting is unable to hold anything down. The patient was given morphine, Zofran, and 1 L of normal saline bolus. However I feel that he will most likely require multiple doses of pain and nausea medicines. The patient will be admitted for intractable pain and vomiting to the care of Dr. Hunter as he has [facility] insurance. CT scan of the abdomen and pelvis is pending as well as CMP and lipase. Departure Diagnosis: Primary Impression: Abdominal pain Qualified Code: R10.13 - Epigastric pain Additional Impression: Nausea and vomiting Qualified Code: R11.2 - Intractable vomiting with nausea, unspecified vomiting type Condition: JIMBO Lay MD Jan 25, 2017 22:22
[2017-01-25 22:30] LABS: ALBUMIN 4.8 g/dl (3.3-4.9); ALBUMIN/GLOBULIN RATIO 1.6; BILIRUBIN,INDIRECT 0.2 mg/dl (0-1.1); BILIRUBIN,TOTAL 0.2 mg/dl (0.2-1.3); CALCIUM 9.5 mg/dl (8.4-10.2); CREATININE 0.94 mg/dl (0.61-1.24); POTASSIUM 4.3 mmol/L (3.5-5.1); TOTAL PROTEIN 7.8 g/dl (6.1-8.1)
[2017-01-25 23:45] VITALS: TEMP 98.8
[2017-01-26 00:20] VITALS: BP 121/78; PULSE 74; RESP 19
--- NOTE | 2017-01-26 00:23 | RADRPT ---
PROCEDURE: CT Abdomen and Pelvis without contrast. CLINICAL INDICATION: Abdominal pain. TECHNIQUE: A CT scan of the abdomen and pelvis was performed without intravenous contrast. Hart l and sagittal reformatted images were generated. Images were reviewed on a high-resolution PACS wor kstation. CTDIvol: 1022 mGy. DLP: 531.41 mGy-cm. One or more of the following dose reduction techniques were used: - Automated exposure control. - Adjustment of the mA and/or kV according to patient size. - Use of iterative reconstruction technique. COMPARISON: 08/24/2016 FINDINGS: There is mild atelectasis in both lower lobes. Evaluation of the abdominal and pelvic viscera is limited by the lack of oral and intravenous contra st. The liver is unremarkable. The gallbladder is normal in appearance. The common bile duct is not dila mahin. The spleen is not enlarged. The patient status post distal pancreatectomy, with scattered surgi dick clips seen in the left upper quadrant. The previously noted surgical drain has been removed. Ir regular nodular infiltration of the left upper quadrant peritoneal fat is slightly increased since t he prior examination. The kidneys are normal in size. There is no perinephric fat stranding. No hydronephrosis is seen. Th ere are nonobstructing stones in both kidneys measuring up to 4 mm bilaterally. The adrenal glands are unremarkable. The small and large bowel are normal in caliber. There is no bowel wall thickening. The appendix is normal. The urinary bladder is unremarkable. The pelvic organs are within normal limits. There is a small fa t containing left inguinal hernia. No lymphadenopathy is identified. There is no ascites. No pneumoperitoneum is seen. There are no art erial calcifications. No suspicious osseous lesion is idenitified. IMPRESSION: 1. Status post distal pancreatectomy. 2. Irregular nodular infiltration of the left quadrant peritoneal fat, slightly increased since the prior examination. This is nonspecific but could represent a neoplastic process. 3. No acute stones in both kidneys measuring up to 4 mm bilaterally. 4. Normal appendix. 5. Small fat containing left inguinal hernia. RPTAT: HTAR .Gio Jones MD, MD Date Time Electronically viewed and signed by .Gio Jones MD, MD on 01/26/2017 00:23 .R/
[2017-01-26 00:25] VITALS: Ht 167.6 cm; Wt 75.5 kg
[2017-01-26] MEDS ORDERED: DEXTROSE 5%-0.45% NACL 500 ML IV SCH (01:00)
[2017-01-26] MEDS ORDERED: ACETAMINOPHEN 325 MG TAB PO PRN (01:00)
[2017-01-26] MEDS: morphine 2 MG INJ IV PRN ×3 (01:22→07:09)
[2017-01-26] MEDS: ONDANSETRON 4 MG INJ IV PRN ×2 (01:22→21:50)
[2017-01-26] MEDS: DEXTROSE 5%-0.45% NACL 1,000 ML IV SCH ×2 (01:56→18:32)
[2017-01-26 05:15] LABS: ADD SCAN DIFF NO
[2017-01-26 05:19] LABS: BASOPHILS % 0.4 % (0.0-2.0); EOSINOPHILS # 0.4 10^3/ul (0.0-0.5); HEMATOCRIT 40.4 % (42.0-52.0); HEMOGLOBIN 13.4 g/dl (14.0-18.0); LYMPHOCYTES # 2.4 10^3/ul (0.8-2.9); LYMPHOCYTES % 30.9 % (15.0-51.0); MEAN CORPUSCULAR HEMOGLOBIN 31.6 pg (29.0-33.0); MEAN CORPUSCULAR HGB CONC 33.2 g/dl (32.0-37.0); MEAN CORPUSCULAR VOLUME 95.3 fl (82.0-101.0); MEAN PLATELET VOLUME 9.3 fl (7.4-10.4); MONOCYTE # 0.8 10^3/ul (0.3-0.9); MONOCYTES % 9.8 % (0.0-11.0); NEUTROPHIL # 4.1 10^3/ul (1.6-7.5); NEUTROPHILS % 53.1 % (39.0-77.0); PLATELET COUNT 220 10^3/UL (140-415); RED BLOOD COUNT 4.24 10^6/ul (4.70-6.10); RED CELL DISTRIBUTION WIDTH 12.7 % (11.5-14.5); WHITE BLOOD COUNT 7.6 10^3/ul (4.8-10.8)
[2017-01-26 06:03] LABS: ALBUMIN 4.2 g/dl (3.3-4.9); ALBUMIN/GLOBULIN RATIO 1.68; BILIRUBIN,INDIRECT 0.2 mg/dl (0-1.1); BILIRUBIN,TOTAL 0.2 mg/dl (0.2-1.3); CALCIUM 8.9 mg/dl (8.4-10.2); CREATININE 0.95 mg/dl (0.61-1.24); POTASSIUM 4.2 mmol/L (3.5-5.1); TOTAL PROTEIN 6.7 g/dl (6.1-8.1)
[2017-01-26] MEDS: PANTOPRAZOLE 40 MG INJ IV SCH (07:09)
[2017-01-26 08:11] VITALS: BP 129/74; RESP 18
[2017-01-26] MEDS ORDERED: HYDROmorphONE 1 MG/ML SYG IV STA (08:57)
[2017-01-26] MEDS: SERTRALINE 100 MG TAB PO SCH (09:17)
[2017-01-26] MEDS: RANITIDINE 150 MG TAB PO SCH (09:17)
[2017-01-26] MEDS: HYDROmorphONE 1 MG/ML SYG IV PRN ×4 (12:44→21:45)
--- NOTE | 2017-01-26 18:31 | CONS ---
Date/Time of Note Date/Time of Note DATE: 01/26/17 TIME: 18:27 Assessment/Plan Assessment/Plan Additional Assessment/Plan Impression 1. Status post distal pancreatectomy for IPMN, there was no evidence of malignancy. 2. Abdominal pain associated with nausea vomiting, rule out gastritis, rule out viral gastroenteritis, rule out peptic ulcer disease 3. Change in bowel habits 4. Nicotine and alcohol usage 5. History of chronic pancreatitis based on the pathology report Plan Continue with Protonix IV fluid Low-fat diet Creon. If abdominal pain and emesis persist then will do EGD. Patient is already scheduled for EGD and colonoscopy within few weeks as an outpatient. Consultation Date/Type/Reason Admit Date/Time Jan 25, 2017 at 22:00 Hx of Present Illness Patient is a 51-year-old male admitted to the hospital for abdominal pain and intractable nausea vomiting for last few days. Patient denies of any circumstantial evidence of food poisoning. No GI bleeding. He has a change in bowel habits, constipation alternating with diarrhea. No weight loss. No chest pain no shortness of breath no fever. Review of systems negative Past Surgical History Past Surgical Hx: bowel resection, other Social History Smoking Status: Current every day smoker Exam/Review of Systems Vital Signs Vitals Vital Signs Date Time Temp Pulse Resp B/P Pulse Ox O2 Delivery O2 Flow Rate FiO2 01/26/17 08:11 98.0 70 18 129/74 98 01/26/17 00:20 Room Air Intake and Output 01/25/17 01/25/17 01/26/17 15:00 23:00 07:00 Intake Total 630 ml Balance 630 ml Exam Constitutional: alert, oriented, well developed Psych: nl mood/affect, no complaints Head: atraumatic, normocephalic Eyes: EOMI, PERRL, nl conjunctiva, nl lids, nl sclera ENMT: nl external ears & nose, nl lips & teeth, nl nasal mucosa & septum Neck: non-tender, supple Respiratory: clear to auscultation, normal air movement Cardiovascular: nl pulses, regular rate and rhythm Gastrointestinal: nl liver, spleen, non-tender, soft Musculoskeletal: nl extremities to inspection, nl gait and stance Extremities: normal pulses Neurological: V BELT COVERER II-XII intact, nl mental status, nl speech, nl strength Skin: nl turgor, No rash or lesions Lymph: nl lymph nodes Results Result Diagram: 01/26/177 01/26/17 0447 Results 24 hrs Laboratory Tests Test 01/25/17 21:10 01/25/17 21:44 01/26/17 04:47 Urine Color YELLOW Urine Clarity SLIGHTLY CLOUDY A Urine pH 8.0 Urine Specific [place] 1.009 Urine Ketones NEGATIVE Urine Nitrite NEGATIVE Urine Bilirubin NEGATIVE Urine Urobilinogen NEGATIVE Urine Leukocyte Esterase 2+ H Urine Microscopic RBC 1 Urine Microscopic WBC 1 Urine Bacteria FEW A Urine Hemoglobin 1+ H Urine Glucose NEGATIVE Urine Total Protein NEGATIVE White Blood Count 9.0 # 7.6 Red Blood Count 4.61 #L 4.24 L Hemoglobin 14.6 # 13.4 L Hematocrit 43.2 # 40.4 L Mean Corpuscular Volume 93.7 95.3 Mean Corpuscular Hemoglobin 31.7 31.6 Mean Corpuscular Hemoglobin Concent 33.8 33.2 Red Cell Distribution Width 12.8 12.7 Platelet Count 228 220 Mean Platelet Volume 9.3 9.3 Neutrophils % 54.9 53.1 Lymphocytes % 30.9 30.9 Monocytes % 9.4 9.8 Eosinophils % 3.5 5.0 Basophils % 0.4 0.4 Nucleated Red Blood Cells % 0.0 0.0 Neutrophils # 4.9 4.1 Lymphocytes # 2.8 2.4 Monocytes # 0.8 0.8 Eosinophils # 0.3 0.4 Basophils # 0.0 0.0 Nucleated Red Blood Cells # 0.0 0.0 Sodium Level 140 141 Potassium Level 4.3 4.2 Chloride Level 100 104 Carbon Dioxide Level 29 27 Anion Gap 15 14 Blood Urea Nitrogen 10 9 Creatinine 0.94 0.95 Glucose Level 100 123 Calcium Level 9.5 8.9 Total Bilirubin 0.2 0.2 Direct Bilirubin 0.00 0.00 Indirect Bilirubin 0.2 0.2 Aspartate Amino Transf (AST/SGOT) 25 23 Alanine Aminotransferase (ALT/SGPT) 40 36 Alkaline Phosphatase 95 74 Total Protein 7.8 6.7 # Albumin 4.8 4.2 Globulin 3.00 2.50 Albumin/Globulin Ratio 1.60 1.68 Lipase 44 Medications Medications Current Medications Pantoprazole (Protonix Iv) 40 mg DAILY@06 IV Last administered on 01/26/17t 07: 09; Admin Dose 40 MG; Start 01/26/17 at 06:00 Acetaminophen (Tylenol Tab) 650 mg Q6H PRN PO PAIN AND OR ELEVATED TEMP; Start 01/26/17 at 01:00 Ondansetron HCl (Zofran Inj) 4 mg Q4H PRN IV NAUSEA AND/OR VOMITING Last administered on 01/26/17 01:22; Admin Dose 4 MG; Start 01/26/17 at 01:00 Atorvastatin Calcium (Lipitor) 10 mg DAILY@21 PO ; Start 01/26/17 at 21:00 Ranitidine HCl (Zantac) 150 mg DAILY PO Last administered on 01/26/17 09:17; Admin Dose 150 MG; Start 01/26/17 at 09:00 Sertraline HCl (Zoloft) 100 mg DAILY PO Last administered on 01/26/17 09:17; Admin Dose 100 MG; Start 01/26/17 at 09:00 Carisoprodol (Soma) 350 mg BID PRN PO MUSCLE SPASMS; Start 01/26/17 at 01:30 Zolpidem Tartrate 10 mg 10 mg HS PRN PO INSOMNIA; Start 01/26/17 at 01:30 Dextrose/Sodium Chloride (D5-1/2ns) 1,000 ml @ 70 mls/hr [id number] IV Last administered on 01/26/17 01:56; Admin Dose 70 MLS/HR; Start 01/26/17 at 01:30 Hydromorphone HCl (Dilaudid) 0.7 mg Q3 PRN IV PAIN Last administered on 15:53; Admin Dose 0.7 MG; Start 01/26/17 at 09:00 KVNG ESPINOZA MD Jan 26, 2017 18:30
--- NOTE | 2017-01-26 20:38 | HP ---
Date/Time of Note Date/Time of Note DATE: 01/26/17 TIME: 20:32 Assessment/Plan VTE Prophylaxis VTE Prophylaxis Intervention: other Lines/Catheters [facility] Per[facility] IV Urinary Cath still in place: No Assessment/Plan Chief Complaint/Hosp Course A/P ABD PAIN POSS GERD HX PANCREATITIS HX CONSTIPATION PLAN PER ORDER GI PAIN MEDS Problems: HPI/ROS Admit Date/Time Admit Date/Time Jan 25, 2017 at 22:00 ROS Constitutional: nausea, poor po, No fatigue, No weight change Eyes: no complaints ENT: no complaints Respiratory: no complaints Cardiovascular: no complaints Gastrointestinal: constipation, decreased appetite, nausea, pain, vomiting Genitourinary: no complaints Musculoskeletal: no complaints Skin: no complaints Neurologic: no complaints Endocrine: no complaints Lymphatic: no complaints Psychological: nl mood/affect, no complaints Immunologic: no complaints PMH/Family/Social Past Medical History Medical History: GERD, pancreatitis, peptic ulcer disease Past Surgical History Past Surgical Hx: bowel resection, other (hx pancrease surgery) Family History Significant Family History: no pertinent family hx Social History Smoking Status: Current every day smoker Drug Use: none Exam/Review of Systems Vital Signs Vitals Vital Signs Date Time Temp Pulse Resp B/P Pulse Ox O2 Delivery O2 Flow Rate FiO2 01/26/17 08:11 98.0 70 18 129/74 98 01/26/17 00:20 Room Air Intake and Output 01/25/17 01/25/17 01/26/17 15:00 23:00 07:00 Intake Total 630 ml Balance 630 ml Exam Constitutional: alert, oriented, well developed Psych: nl mood/affect, no complaints Head: atraumatic, normocephalic Eyes: EOMI, nl conjunctiva, nl lids ENMT: nl external ears & nose, nl lips & teeth, nl nasal mucosa & septum Neck: non-tender, supple Respiratory: clear to auscultation, normal air movement Cardiovascular: nl pulses, regular rate and rhythm Gastrointestinal: bowel sounds (+), nl liver, spleen, non-tender, soft, No distended, No hepatomegaly Genitourinary - Male: No CVA tenderness Musculoskeletal: nl extremities to inspection Extremities: normal pulses Neurological: PUBLIC HE[employer] 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 II-XII intact, nl mental status, nl speech Skin: nl turgor, rash or lesions Labs Result Diagram: 01/26/17 0447 01/26/17 0447 Medications Medications Current Medications Pantoprazole (Protonix Iv) 40 mg DAILY@06 IV Last administered on 01/26/17 07: 09; Admin Dose 40 MG; Start 01/26/17 at 06:00 Acetaminophen (Tylenol Tab) 650 mg Q6H PRN PO PAIN AND OR ELEVATED TEMP; Start 01/26/17 at 01:00 Ondansetron HCl (Zofran Inj) 4 mg Q4H PRN IV NAUSEA AND/OR VOMITING Last administered on 01/26/17 01:22; Admin Dose 4 MG; Start 01/26/17 at 01:00 Atorvastatin Calcium (Lipitor) 10 mg DAILY@21 PO ; Start 01/26/17 at 21:00 Ranitidine HCl (Zantac) 150 mg DAILY PO Last administered on 01/26/17 09:17; Admin Dose 150 MG; Start 01/26/17 at 09:00 Sertraline HCl (Zoloft) 100 mg DAILY PO Last administered on 01/26/17 09:17; Admin Dose 100 MG; Start 01/26/17 at 09:00 Carisoprodol (Soma) 350 mg BID PRN PO MUSCLE SPASMS; Start 01/26/17 at 01:30 Zolpidem Tartrate 10 mg 10 mg HS PRN PO INSOMNIA; Start 01/26/17 at 01:30 Dextrose/Sodium Chloride (D5-1/2ns) 1,000 ml @ 70 mls/hr [id number] IV Last administered on 01/26/17 18:32; Admin Dose 70 MLS/HR; Start 01/26/17 at 01:30 Hydromorphone HCl (Dilaudid) 0.7 mg Q3 PRN IV PAIN Last administered on 19:02; Admin Dose 0.7 MG; Start 01/26/17 at 09:00 PEG HUNTER MD Jan 26, 2017 20:38
[2017-01-26 20:40] VITALS: BP 142/77; RESP 20
[2017-01-26] MEDS: ATORVASTATIN 10 MG TAB PO SCH (21:05)
[2017-01-27] MEDS: HYDROmorphONE 1 MG/ML SYG IV PRN ×9 (01:02→21:35)
[2017-01-27] MEDS: ZOLPIDEM 5 MG TAB PO PRN ×2 (03:09→22:38)
[2017-01-27] MEDS: PANTOPRAZOLE 40 MG INJ IV SCH (06:03)
[2017-01-27] MEDS: DEXTROSE 5%-0.45% NACL 1,000 ML IV SCH (06:06)
[2017-01-27] MEDS ORDERED: DEXTROSE 5%-0.45% NACL 500 ML IV SCH (07:00)
[2017-01-27 08:00] VITALS: BP 140/71; RESP 20
[2017-01-27 08:11] LABS: ALBUMIN 4.3 g/dl (3.3-4.9); ALBUMIN/GLOBULIN RATIO 1.79; BILIRUBIN,INDIRECT 0.4 mg/dl (0-1.1); BILIRUBIN,TOTAL 0.4 mg/dl (0.2-1.3); CALCIUM 9.2 mg/dl (8.4-10.2); CREATININE 0.9 mg/dl (0.61-1.24); POTASSIUM 4.4 mmol/L (3.5-5.1); TOTAL PROTEIN 6.7 g/dl (6.1-8.1)
[2017-01-27] MEDS: DEXTROSE 5%-0.45% NACL 500 ML IV SCH ×3 (08:30→21:39)
[2017-01-27] MEDS: SERTRALINE 100 MG TAB PO SCH (08:36)
[2017-01-27] MEDS: RANITIDINE 150 MG TAB PO SCH (08:36)
[2017-01-27] MEDS: CREON (12k-38k-60k) 1 CAP PO SCH ×3 (09:59→18:09)
--- NOTE | 2017-01-27 15:19 | PN ---
Date/Time of Note Date/Time of Note DATE: 01/27/17 TIME: 15:17 Assessment/Plan VTE Prophylaxis VTE Prophylaxis Intervention: ambulation Lines/Catheters IV Catheter Type (from Nrsg): Peripheral IV Urinary Cath still in place: No Assessment/Plan Chief Complaint/Hosp Course 1. ABD PAIN 2. POSS GERD 3. HX PANCREATITIS 4. HX CONSTIPATION Problems: Assessment/Plan 1. pain control 2. Pt was seen outpatient by TO Subjective 24 Hr Interval Summary Gastrointestinal: pain (05/09) Exam/Review of Systems Vital Signs Vitals Vital Signs Date Time Temp Pulse Resp B/P Pulse Ox O2 Delivery O2 Flow Rate FiO2 01/27/17 08:00 98.7 60 20 140/71 98 01/26/17 00:20 Room Air Intake and Output 01/26/17 01/26/17 01/27/17 14:59 22:59 06:59 Intake Total 1200 ml Output Total 450 ml Balance 750 ml Exam Constitutional: alert, oriented Neck: supple Respiratory: clear to auscultation Cardiovascular: regular rate and rhythm Gastrointestinal: rebound or guarding, surgical scars, tender Results Result Diagram: 01/26/17 0447 01/27/17 0718 Results 24 hrs Laboratory Tests Test 01/27/17 07:18 Sodium Level 138 Potassium Level 4.4 Chloride Level 100 Carbon Dioxide Level 25 Anion Gap 17 H Blood Urea Nitrogen 11 Creatinine 0.90 Glucose Level 119 Calcium Level 9.2 Total Bilirubin 0.4 Direct Bilirubin 0.00 Indirect Bilirubin 0.4 Aspartate Amino Transf (AST/SGOT) 28 Alanine Aminotransferase (ALT/SGPT) 37 Alkaline Phosphatase 75 Total Protein 6.7 Albumin 4.3 Globulin 2.40 Albumin/Globulin Ratio 1.79 Lipase 44 Medications Medications Current Medications Pantoprazole (Protonix Iv) 40 mg DAILY@06 IV Last administered on 01/27/17 06: 03; Admin Dose 40 MG; Start 01/26/17 at 06:00 Acetaminophen (Tylenol Tab) 650 mg Q6H PRN PO PAIN AND OR ELEVATED TEMP; Start 01/26/17 at 01:00 Ondansetron HCl (Zofran Inj) 4 mg Q4H PRN IV NAUSEA AND/OR VOMITING Last administered on 01/26/17 21:50; Admin Dose 4 MG; Start 01/26/17 at 01:00 Atorvastatin Calcium (Lipitor) 10 mg DAILY@21 PO Last administered on 21:05; Admin Dose 10 MG; Start 01/26/17 at 21:00 Ranitidine HCl (Zantac) 150 mg DAILY PO Last administered on 01/27/17 08:36; Admin Dose 150 MG; Start 01/26/17 at 09:00 Sertraline HCl (Zoloft) 100 mg DAILY PO Last administered on 01/27/17 08:36; Admin Dose 100 MG; Start 01/26/17 at 09:00 Carisoprodol (Soma) 350 mg BID PRN PO MUSCLE SPASMS; Start 01/26/17 at 01:30 Zolpidem Tartrate (Ambien) 10 mg HS PRN PO INSOMNIA Last administered on 03:09; Admin Dose 10 MG; Start 01/26/17 at 01:30 Hydromorphone HCl 0.7 mg 0.7 mg Q3 PRN IV PAIN Last administered on 01/27/17 12:48; Admin Dose 0.7 MG; Start 01/26/17 at 09:00 Dextrose/Sodium Chloride (D5-1/2ns) 500 ml @ 0 mls/hr Q0M IV ; Start 01/27/17 at 07:00 BRIDGET TOWNSEND Jan 27, 2017 15:19
[2017-01-27] MEDS ORDERED: morphine 2 MG INJ IV PRN (16:00)
[2017-01-27] MEDS: ENOXAPARIN 80 MG/0.8 ML SYG SC SCH (18:10)
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
[2017-01-27] MEDS: ATORVASTATIN 10 MG TAB PO SCH (20:29)
[2017-01-27] MEDS: NICOTINE (14 MG/24 HR) PATCH TRANSDERM SCH (20:32)
[2017-01-27 20:42] VITALS: BP 129/62; RESP 20
[2017-01-27] MEDS ORDERED: HYDROmorphONE 1 MG/ML SYG IV ONE (22:29)
[2017-01-28] MEDS: HYDROmorphONE 2 MG TAB PO PRN ×4 (02:57→19:54)
[2017-01-28] MEDS: DEXTROSE 5%-0.45% NACL 500 ML IV SCH ×2 (05:23→19:55)
[2017-01-28] MEDS: PANTOPRAZOLE 40 MG INJ IV SCH (05:23)
[2017-01-28] MEDS: HYDROmorphONE 1 MG/ML SYG IV PRN ×7 (05:24→22:31)
[2017-01-28 07:00] LABS: BASOPHILS % 0.5 % (0.0-2.0); EOSINOPHILS # 0.3 10^3/ul (0.0-0.5); EOSINOPHILS % 4.4 % (0.0-7.0); HEMATOCRIT 43.9 % (42.0-52.0); HEMOGLOBIN 14.4 g/dl (14.0-18.0); LYMPHOCYTES % 26.3 % (15.0-51.0); MEAN CORPUSCULAR HEMOGLOBIN 30.2 pg (29.0-33.0); MEAN CORPUSCULAR HGB CONC 32.8 g/dl (32.0-37.0); MEAN PLATELET VOLUME 9.8 fl (7.4-10.4); MONOCYTE # 0.6 10^3/ul (0.3-0.9); MONOCYTES % 7.6 % (0.0-11.0); NEUTROPHIL # 4.6 10^3/ul (1.6-7.5); NEUTROPHILS % 60.4 % (39.0-77.0); PLATELET COUNT 252 10^3/UL (140-415); RED BLOOD COUNT 4.77 10^6/ul (4.70-6.10); RED CELL DISTRIBUTION WIDTH 12.1 % (11.5-14.5); WHITE BLOOD COUNT 7.7 10^3/ul (4.8-10.8)
[2017-01-28 07:14] LABS: ALBUMIN 4.6 g/dl (3.3-4.9); ALBUMIN/GLOBULIN RATIO 1.76; BILIRUBIN,INDIRECT 0.5 mg/dl (0-1.1); BILIRUBIN,TOTAL 0.5 mg/dl (0.2-1.3); CALCIUM 9.7 mg/dl (8.4-10.2); CREATININE 0.89 mg/dl (0.61-1.24); POTASSIUM 4.4 mmol/L (3.5-5.1); TOTAL PROTEIN 7.2 g/dl (6.1-8.1)
[2017-01-28 07:36] LABS: D-DIMER 1074.45 ng/ml (<460)
[2017-01-28 08:00] VITALS: BP 117/88; RESP 20
[2017-01-28] MEDS: RANITIDINE 150 MG TAB PO SCH (08:30)
[2017-01-28] MEDS: CREON (12k-38k-60k) 1 CAP PO SCH ×3 (08:31→18:56)
[2017-01-28] MEDS: SERTRALINE 100 MG TAB PO SCH (08:31)
[2017-01-28] MEDS: NICOTINE (14 MG/24 HR) PATCH TRANSDERM SCH (10:59)
[2017-01-28] MEDS: ENOXAPARIN 80 MG/0.8 ML SYG SC SCH ×2 (11:09→21:39)
--- NOTE | 2017-01-28 15:09 | PN ---
Date/Time of Note Date/Time of Note DATE: 01/28/17 TIME: 15:08 Assessment/Plan VTE Prophylaxis VTE Prophylaxis Intervention: ambulation Lines/Catheters IV Catheter Type (from Nrs): Peripheral IV Urinary Cath still in place: No Assessment/Plan Chief Complaint/Hosp Course 1. ABD PAIN 2. POSS GERD 3. HX PANCREATITIS 4. HX CONSTIPATION Problems: Assessment/Plan 1. Hematology and GI on case 2. COntinue current regime Subjective 24 Hr Interval Summary Constitutional: improved Gastrointestinal: pain (4-10) Exam/Review of Systems Vital Signs Vitals Vital Signs Date Time Temp Pulse Resp B/P Pulse Ox O2 Delivery O2 Flow Rate FiO2 01/28/17 08:00 98.6 74 20 117/88 98 01/26/17 00:20 Room Air Intake and Output 01/27/17 01/27/17 01/28/17 15:00 23:00 07:00 Intake Total 1360 ml 480 ml Output Total 500 ml Balance 860 ml 480 ml Exam Constitutional: alert, oriented Respiratory: clear to auscultation Cardiovascular: regular rate and rhythm Gastrointestinal: soft Genitourinary - Male: nl penis Results Result Diagram: 01/28/17 0500 01/28/17 0539 Results 24 hrs Laboratory Tests Test 01/28/17 05:00 01/28/17 05:34 01/28/17 05:39 White Blood Count 7.7 Red Blood Count 4.77 Hemoglobin 14.4 Hematocrit 43.9 Mean Corpuscular Volume 92.0 Mean Corpuscular Hemoglobin 30.2 Mean Corpuscular Hemoglobin Concent 32.8 Red Cell Distribution Width 12.1 Platelet Count 252 Mean Platelet Volume 9.8 Neutrophils % 60.4 Lymphocytes % 26.3 Monocytes % 7.6 Eosinophils % 4.4 Basophils % 0.5 Nucleated Red Blood Cells % 0.0 Neutrophils # 4.6 Lymphocytes # 2.0 Monocytes # 0.6 Eosinophils # 0.3 Basophils # 0.0 Nucleated Red Blood Cells # 0.0 D-Dimer 1074.45 H D-Dimer Comment Sodium Level 138 Potassium Level 4.4 Chloride Level 99 Carbon Dioxide Level 24 Anion Gap 19 H Blood Urea Nitrogen 13 Creatinine 0.89 Glucose Level 106 Calcium Level 9.7 Total Bilirubin 0.5 Direct Bilirubin 0.00 Indirect Bilirubin 0.5 Aspartate Amino Transf (AST/SGOT) 25 Alanine Aminotransferase (ALT/SGPT) 36 Alkaline Phosphatase 78 Total Protein 7.2 Albumin 4.6 Globulin 2.60 Albumin/Globulin Ratio 1.76 Medications Medications Current Medications Pantoprazole (Protonix Iv) 40 mg DAILY@06 IV Last administered on 01/28/17 05: 23; Admin Dose 40 MG; Start 01/26/17 at 06:00 Acetaminophen (Tylenol Tab) 650 mg Q6H PRN PO PAIN AND OR ELEVATED TEMP; Start 01/26/17 at 01:00 Ondansetron HCl (Zofran Inj) 4 mg Q4H PRN IV NAUSEA AND/OR VOMITING Last administered on 01/26/17 21:50; Admin Dose 4 MG; Start 01/26/17 at 01:00 Atorvastatin Calcium (Lipitor) 10 mg DAILY@21 PO Last administered on 20:29; Admin Dose 10 MG; Start 01/26/17 at 21:00 Ranitidine HCl (Zantac) 150 mg DAILY PO Last administered on 01/28/17 08:30; Admin Dose 150 MG; Start 01/26/17 at 09:00 Sertraline HCl (Zoloft) 100 mg DAILY PO Last administered on 01/28/17 08:31; Admin Dose 100 MG; Start 01/26/17 at 09:00 Carisoprodol (Soma) 350 mg BID PRN PO MUSCLE SPASMS; Start 01/26/17 at 01:30 Zolpidem Tartrate (Ambien) 10 mg HS PRN PO INSOMNIA Last administered on 22:38; Admin Dose 10 MG; Start 01/26/17 at 01:30 Hydromorphone HCl 0.7 mg 0.7 mg Q3 PRN IV PAIN Last administered on 01/27/17 21:35; Admin Dose 0.7 MG; Start 01/26/17 at 09:00 Dextrose/Sodium Chloride (D5-1/2ns) 500 ml @ 0 mls/hr Q0M IV Last administered on 01/28/17 05:23; Admin Dose 70 MLS/HR; Start 01/27/17 at 07:00 Enoxaparin Sodium (Lovenox) 75 mg Q12 SC Last administered on 01/28/17 11:09; Admin Dose 75 MG; Start 01/27/17 at 18:15 Nicotine (Nicoderm 14 Mg/ 24hr) 1 patch DAILY TRANSDERM Last administered on 10:59; Admin Dose 1 PATCH; Start 01/27/17 at 18:00 Hydromorphone HCl (Dilaudid) 1 mg Q3H PRN IV PAIN Last administered on 14:11; Admin Dose 1 MG; Start 01/27/17 at 22:30 Hydromorphone HCl (Dilaudid) 2 mg Q4H PRN PO PAIN Last administered on 14:10; Admin Dose 2 MG; Start 01/27/17 at 22:30 BRIDGET TOWNSEND Jan 28, 2017 15:09
[2017-01-28] MEDS ORDERED: POLYETHYLENE GLYCOL 3350 119 GM POWDER PO PRN (19:00)
[2017-01-28 19:34] VITALS: BP 137/80; RESP 18
[2017-01-28] MEDS: ATORVASTATIN 10 MG TAB PO SCH (21:38)
[2017-01-28] MEDS: BISACODYL (EC) 5 MG TAB PO SCH (21:38)
[2017-01-28] MEDS: DOCUSATE SODIUM 100 MG CAP PO SCH (21:38)
[2017-01-28] MEDS: ZOLPIDEM 5 MG TAB PO PRN (22:30)
[2017-01-29] MEDS: HYDROmorphONE 2 MG TAB PO PRN ×3 (00:11→18:59)
[2017-01-29] MEDS: HYDROmorphONE 1 MG/ML SYG IV PRN ×7 (04:44→23:24)
[2017-01-29] MEDS: DEXTROSE 5%-0.45% NACL 500 ML IV SCH (04:47)
[2017-01-29 05:24] LABS: CALCIUM 9.9 mg/dl (8.4-10.2); CREATININE 0.91 mg/dl (0.61-1.24)
[2017-01-29] MEDS: PANTOPRAZOLE 40 MG INJ IV SCH (05:37)
[2017-01-29 07:32] VITALS: BP 129/79; RESP 15
[2017-01-29] MEDS: DOCUSATE SODIUM 100 MG CAP PO SCH ×2 (08:49→20:13)
[2017-01-29] MEDS: CREON (12k-38k-60k) 1 CAP PO SCH ×3 (08:49→17:23)
[2017-01-29] MEDS: RANITIDINE 150 MG TAB PO SCH (08:50)
[2017-01-29] MEDS: BISACODYL (EC) 5 MG TAB PO SCH ×3 (08:50→20:19)
[2017-01-29] MEDS: SERTRALINE 100 MG TAB PO SCH (08:50)
[2017-01-29] MEDS: NICOTINE (14 MG/24 HR) PATCH TRANSDERM SCH (08:51)
[2017-01-29] MEDS: ENOXAPARIN 80 MG/0.8 ML SYG SC SCH ×2 (08:59→20:13)
[2017-01-29] MEDS: ONDANSETRON 4 MG INJ IV PRN (14:25)
--- NOTE | 2017-01-29 17:42 | PN ---
Date/Time of Note Date/Time of Note DATE: 01/29/17 TIME: 17:41 Assessment/Plan VTE Prophylaxis VTE Prophylaxis Intervention: other Lines/Catheters IV Catheter Type (from Nrs): Peripheral IV Urinary Cath still in place: No Assessment/Plan Chief Complaint/Hosp Course A/P ABD PAIN POSS GERD HX PANCREATITIS HX CONSTIPATION PLAN PER ORDER GI PAIN MEDS HOME SOON Problems: Subjective 24 Hr Interval Summary Respiratory: no complaints Cardiovascular: no complaints Gastrointestinal: other (DYSPEPSIA+) Exam/Review of Systems Vital Signs Vitals Vital Signs Date Time Temp Pulse Resp B/P Pulse Ox O2 Delivery O2 Flow Rate FiO2 01/29/17 07:32 98.0 73 15 129/79 97 01/26/17 00:20 Room Air Intake and Output 01/28/17 01/28/17 01/29/17 15:00 23:00 07:00 Intake Total 2000 ml 1220 ml Output Total 650 ml Balance 2000 ml 570 ml Exam Respiratory: clear to auscultation Cardiovascular: regular rate and rhythm Gastrointestinal: soft Musculoskeletal: nl extremities to inspection Results Result Diagram: 01/28/17 0500 01/29/17 0438 Results 24 hrs Laboratory Tests Test 01/29/17 04:38 Sodium Level 140 Potassium Level 5.0 Chloride Level 99 Carbon Dioxide Level 26 Anion Gap 20 H Blood Urea Nitrogen 17 Creatinine 0.91 Glucose Level 97 Calcium Level 9.9 Medications Medications Current Medications Pantoprazole (Protonix Iv) 40 mg DAILY@06 IV Last administered on 01/29/17 05: 37; Admin Dose 40 MG; Start 01/26/17 at 06:00 Acetaminophen (Tylenol Tab) 650 mg Q6H PRN PO PAIN AND OR ELEVATED TEMP; Start 01/26/17 at 01:00 Ondansetron HCl (Zofran Inj) 4 mg Q4H PRN IV NAUSEA AND/OR VOMITING Last administered on 01/29/17 14:25; Admin Dose 4 MG; Start 01/26/17 at 01:00 Atorvastatin Calcium (Lipitor) 10 mg DAILY@21 PO Last administered on 01/28/17 21:38; Admin Dose 10 MG; Start 01/26/17 at 21:00 Ranitidine HCl (Zantac) 150 mg DAILY PO Last administered on 01/29/17 08:50; Admin Dose 150 MG; Start 01/26/17 at 09:00 Sertraline HCl (Zoloft) 100 mg DAILY PO Last administered on 01/29/17 08:50; Admin Dose 100 MG; Start 01/26/17 at 09:00 Carisoprodol (Soma) 350 mg BID PRN PO MUSCLE SPASMS; Start 01/26/17 at 01:30 Zolpidem Tartrate (Ambien) 10 mg HS PRN PO INSOMNIA Last administered on 22:30; Admin Dose 10 MG; Start 01/26/17 at 01:30 Hydromorphone HCl 0.7 mg 0.7 mg Q3 PRN IV PAIN Last administered on 01/27/17 21:35; Admin Dose 0.7 MG; Start 01/26/17 at 09:00 Dextrose/Sodium Chloride (D5-1/2ns) 500 ml @ 0 mls/hr Q0M IV Last administered on 01/29/17 04:47; Admin Dose 70 MLS/HR; Start 01/27/17 at 07:00 Enoxaparin Sodium (Lovenox) 75 mg Q12 SC Last administered on 01/29/17 08:59; Admin Dose 75 MG; Start 01/27/17 at 18:15 Nicotine (Nicoderm 14 Mg/ 24hr) 1 patch DAILY TRANSDERM Last administered on 08:51; Admin Dose 1 PATCH; Start 01/27/17 at 18:00 Hydromorphone HCl (Dilaudid) 1 mg Q3H PRN IV PAIN Last administered on 17:23; Admin Dose 1 MG; Start 01/27/17 at 22:30 Hydromorphone HCl (Dilaudid) 2 mg Q4H PRN PO PAIN Last administered on 08:50; Admin Dose 2 MG; Start 01/27/17 at 22:30 Docusate Sodium (Colace) 100 mg BID PO Last administered on 01/29/17 08:49; Admin Dose 100 MG; Start 01/28/17 at 21:00 Bisacodyl (Dulcolax) 10 mg BID PO Last administered on 01/29/17 08:50; Admin Dose 10 MG; Start 01/28/17 at 21:00 Polyethylene Glycol (Miralax) 119 gm DAILY PRN PO CONSTIPATION; Start 01/28/17 at 19:00 PEG HUNTER MD Jan 29, 2017 17:42
[2017-01-29 19:10] VITALS: BP 121/71; RESP 18
[2017-01-29] MEDS: ATORVASTATIN 10 MG TAB PO SCH (20:13)
[2017-01-29] MEDS: CARISOPRODOL 350 MG TAB PO PRN (20:58)
[2017-01-29] MEDS: ZOLPIDEM 5 MG TAB PO PRN (23:24)
[2017-01-30] MEDS: HYDROmorphONE 2 MG TAB PO PRN ×3 (01:55→12:55)
[2017-01-30] MEDS: HYDROmorphONE 1 MG/ML SYG IV PRN ×3 (03:03→11:28)
[2017-01-30] MEDS: PANTOPRAZOLE 40 MG INJ IV SCH (05:50)
[2017-01-30 07:57] VITALS: BP 119/70; RESP 18
[2017-01-30] MEDS: CREON (12k-38k-60k) 1 CAP PO SCH ×2 (08:43→12:51)
[2017-01-30] MEDS: DOCUSATE SODIUM 100 MG CAP PO SCH (08:44)
[2017-01-30] MEDS: BISACODYL (EC) 5 MG TAB PO SCH (08:44)
[2017-01-30] MEDS: RANITIDINE 150 MG TAB PO SCH (08:44)
[2017-01-30] MEDS: SERTRALINE 100 MG TAB PO SCH (08:45)
[2017-01-30] MEDS: NICOTINE (14 MG/24 HR) PATCH TRANSDERM SCH (08:46)
[2017-01-30] MEDS: ENOXAPARIN 80 MG/0.8 ML SYG SC SCH (08:53)
[2017-01-30] MEDS: CARISOPRODOL 350 MG TAB PO PRN (12:55)
--- NOTE | 2017-01-30 13:10 | PN ---
Date/Time of Note Date/Time of Note DATE: 01/30/17 TIME: 13:09 Assessment/Plan VTE Prophylaxis VTE Prophylaxis Intervention: ambulation Lines/Catheters IV C[facility]ter Type (from [facility]): [facility] Urinary Cath still in place: No Assessment/Plan Chief Complaint/Hosp Course 1. ABD PAIN 2. POSS GERD 3. HX PANCREATITIS 4. HX CONSTIPATION Problems: Assessment/Plan 1. discharge Subjective 24 Hr Interval Summary Constitutional: improved, no complaints Exam/Review of Systems Vital Signs Vitals Vital Signs Date Time Temp Pulse Resp B/P Pulse Ox O2 Delivery O2 Flow Rate FiO2 01/30/17 07:57 97.8 65 18 119/70 100 Intake and Output 01/29/17 01/29/17 01/30/17 15:00 23:00 07:00 Intake Total 1520 ml 260 ml Output Total 350 ml 420 ml Balance 1170 ml -160 ml Exam Psych: no complaints Neck: supple Respiratory: clear to auscultation Cardiovascular: regular rate and rhythm Gastrointestinal: non-tender, soft Results Result Diagram: 01/28/17 0500 01/29/17 0438 Medications Medications Current Medications Pantoprazole (Protonix Iv) 40 mg DAILY@06 IV Last administered on 01/30/17 05: 50; Admin Dose 40 MG; Start 01/26/17 at 06:00 Acetaminophen (Tylenol Tab) 650 mg Q6H PRN PO PAIN AND OR ELEVATED TEMP; Start 01/26/17 at 01:00 Ondansetron HCl (Zofran Inj) 4 mg Q4H PRN IV NAUSEA AND/OR VOMITING Last administered on 01/29/17 14:25; Admin Dose 4 MG; Start 01/26/17 at 01:00 Atorvastatin Calcium (Lipitor) 10 mg DAILY@21 PO Last administered on 01/29/17 20:13; Admin Dose 10 MG; Start 01/26/17 at 21:00 Ranitidine HCl (Zantac) 150 mg DAILY PO Last administered on 01/30/17 08:44; Admin Dose 150 MG; Start 01/26/17 at 09:00 Sertraline HCl (Zoloft) 100 mg DAILY PO Last administered on 01/30/17 08:45; Admin Dose 100 MG; Start 01/26/17 at 09:00 Carisoprodol (Soma) 350 mg BID PRN PO MUSCLE SPASMS Last administered on 12:55; Admin Dose 350 MG; Start 01/26/17 at 01:30 Zolpidem Tartrate (Ambien) 10 mg HS PRN PO INSOMNIA Last administered on 23:24; Admin Dose 10 MG; Start 01/26/17 at 01:30 Hydromorphone HCl (Dilaudid) 0.7 mg Q3 PRN IV PAIN Last administered on 21:35; Admin Dose 0.7 MG; Start 01/26/17 at 09:00 Enoxaparin Sodium (Lovenox) 75 mg Q12 SC Last administered on 01/30/17 08:53; Admin Dose 75 MG; Start 01/27/17 at 18:15 Nicotine (Nicoderm 14 Mg/ 24hr) 1 patch DAILY TRANSDERM Last administered on 08:46; Admin Dose 1 PATCH; Start 01/27/17 at 18:00 Hydromorphone HCl (Dilaudid) 1 mg Q3H PRN IV PAIN Last administered on 11:28; Admin Dose 1 MG; Start 01/27/17 at 22:30 Hydromorphone HCl (Dilaudid) 2 mg Q4H PRN PO PAIN Last administered on 12:55; Admin Dose 2 MG; Start 01/27/17 at 22:30 Docusate Sodium (Colace) 100 mg BID PO Last administered on 01/30/17 08:44; Admin Dose 100 MG; Start 01/28/17 at 21:00 Bisacodyl (Dulcolax) 10 mg BID PO Last administered on 01/29/17 08:50; Admin Dose 10 MG; Start 01/28/17 at 21:00 Polyethylene Glycol (Miralax) 119 gm DAILY PRN PO CONSTIPATION; Start 01/28/17 at 19:00 BRIDGET TOWNSEND Jan 30, 2017 13:10
--- NOTE | 2017-01-30 13:16 | PDOCDIS ---
Discharge Instructions CONDITION Patient Condition: Good HOME CARE INSTRUCTIONS: Diet Instructions: Low Fat /CholesterolSpecial Diet: low fat low cholesterol ACTIVITY: Activity Restrictions: Slowly Increase Activity FOLLOW UP/APPOINTMENTS Follow-up Plan Kristy Fleming in 1 week BRIDGET TOWNSEND Jan 30, 2017 13:16
[2017-01-30] MEDS ORDERED: Nicotine (14 Mg/24 Hr) TRANSDERM (13:17)
--- NOTE | 2017-01-30 13:51 | CONS ---
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 Both episodes (05/2012 and 03/2016) did not have clear provoking factors, although he was an active smoker. 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 His history of chronic pancreatitis may also contribute to hypercoagulable state. He also has possible family history of VTE though unclear. - hypercoagulable work-up, including protein C/S, antithrombin III, prothrombin gene mutation, factor V Leiden, lupus anticoagulant, beta2 glycoprotein, anticardiolipin Ab, sent - pending at this time - continue therapeutic lovenox 1 mg/kg Q12H. If negative for antiphospholipid antibody syndrome, consider switching to one of the new oral anticoagulants - hypercoagulable work-up will help determine length of therapy, however the fact that the patient has had recurrent DVT/PE without clear provoking factors makes him high risk for recurrence and may warrant lifelong anticoagulation regardless of work-up. - would recommend outpatient evaluation by vascular surgery to see if anatomic predisposition could be contributing due to prior crush injury and reconstruction of leg from chain saw injury - Rx nicotine patch given active smoking - CT A/P 01/25/17 without contrast showed status post distal pancreatectomy, irregular nodular infiltration of the left quadrant peritoneal fat, slightly increased since the prior examination. This is nonspecific but could represent a neoplastic process. f/u as outpatient - patient has an appointment to see me in clinic in 2 weeks Problems: Consultation Date/Type/Reason Admit Date/Time Jan 25, 2017 at 22:00 Initial Consult Date 01/27/17 Type of Consultation: Hematology/Oncology 24 HR Interval Summary Free Text/Dictation Patient doing well, tolerating lovenox. No new complaints. Will be discharged home today. Exam/Review of Systems Vital Signs Vitals Vital Signs Date Time Temp Pulse Resp B/P Pulse Ox O2 Delivery O2 Flow Rate FiO2 01/30/17 07:57 97.8 65 18 119/70 100 Intake and Output 01/29/17 01/29/17 01/30/17 14:59 22:59 06:59 Intake Total 1520 ml 260 ml Output Total 350 ml 420 ml Balance 1170 ml -160 ml Exam Constitutional: alert, oriented Head: normocephalic Eyes: nl conjunctiva Neck: non-tender, supple Respiratory: clear to auscultation Cardiovascular: regular rate and rhythm Gastrointestinal: soft, tender (epigastric TTP) Musculoskeletal: nl extremities to inspection Neurological: INFORMATION TECHNOLOGY SPECIALIST II-XII intact Results Result Diagram: 01/28/17 0500 01/29/17 0438 Medications Medications Current Medications Pantoprazole (Protonix Iv) 40 mg DAILY@06 IV Last administered on 01/30/17 05: 50; Admin Dose 40 MG; Start 01/26/17 at 06:00 Acetaminophen (Tylenol Tab) 650 mg Q6H PRN PO PAIN AND OR ELEVATED TEMP; Start 01/26/17 at 01:00 Ondansetron HCl (Zofran Inj) 4 mg Q4H PRN IV NAUSEA AND/OR VOMITING Last administered on 01/29/17 14:25; Admin Dose 4 MG; Start 01/26/17 at 01:00 Atorvastatin Calcium (Lipitor) 10 mg DAILY@21 PO Last administered on 01/29/17 20:13; Admin Dose 10 MG; Start 01/26/17 at 21:00 Ranitidine HCl (Zantac) 150 mg DAILY PO Last administered on 01/30/17 08:44; Admin Dose 150 MG; Start 01/26/17 at 09:00 Sertraline HCl (Zoloft) 100 mg DAILY PO Last administered on 01/30/17 08:45; Admin Dose 100 MG; Start 01/26/17 at 09:00 Carisoprodol (Soma) 350 mg BID PRN PO MUSCLE SPASMS Last administered on 12:55; Admin Dose 350 MG; Start 01/26/17 at 01:30 Zolpidem Tartrate (Ambien) 10 mg HS PRN PO INSOMNIA Last administered on 23:24; Admin Dose 10 MG; Start 01/26/17 at 01:30 Hydromorphone HCl (Dilaudid) 0.7 mg Q3 PRN IV PAIN Last administered on 21:35; Admin Dose 0.7 MG; Start 01/26/17 at 09:00 Enoxaparin Sodium (Lovenox) 75 mg Q12 SC Last administered on 01/30/17 08:53; Admin Dose 75 MG; Start 01/27/17 at 18:15 Nicotine (Nicoderm 14 Mg/ 24hr) 1 patch DAILY TRANSDERM Last administered on 08:46; Admin Dose 1 PATCH; Start 01/27/17 at 18:00 Hydromorphone HCl (Dilaudid) 1 mg Q3H PRN IV PAIN Last administered on 11:28; Admin Dose 1 MG; Start 01/27/17 at 22:30 Hydromorphone HCl (Dilaudid) 2 mg Q4H PRN PO PAIN Last administered on 12:55; Admin Dose 2 MG; Start 01/27/17 at 22:30 Docusate Sodium (Colace) 100 mg BID PO Last administered on 01/30/17 08:44; Admin Dose 100 MG; Start 01/28/17 at 21:00 Bisacodyl (Dulcolax) 10 mg BID PO Last administered on 01/29/17 08:50; Admin Dose 10 MG; Start 01/28/17 at 21:00 Polyethylene Glycol (Miralax) 119 gm DAILY PRN PO CONSTIPATION; Start 01/28/17 at 19:00 LACEY DIOR MD Jan 30, 2017 13:50
--- NOTE | 2017-01-30 16:01 | DS ---
Date/Time of Note Date/Time of Note DATE: 01/30/17 TIME: 15:58 Discharge Summary Admission/Discharge Info Admit Date/Time Jan 25, 2017 at 22:00 Discharge Date/Time Jan 30, 2017 at 15:35 Discharge Diagnosis Abdominal pain Patient Condition: Stable Consults GI and hematology Procedures none Hx of Present Illness pt was admitted with abdominal pain. He had 2 surgeries on abdomen with pancreatomy and bowel resection. IV fluids and careful pain control help to stabilize pt. Hospital Course The patient is a 51 year old male with a history of recurrent DVT/PE, currently on therapeutic lovenox. Both episodes (05/2012 and 03/2016) did not have clear provoking factors, although he was an active smoker. 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 His history of chronic pancreatitis may also contribute to hypercoagulable state. He also has possible family history of VTE though unclear. - hypercoagulable work-up, including protein C/S, antithrombin III, prothrombin gene mutation, factor V Leiden, lupus anticoagulant, beta2 glycoprotein, anticardiolipin Ab, sent - pending at this time - continue therapeutic lovenox 1 mg/kg Q12H. If negative for antiphospholipid antibody syndrome, consider switching to one of the new oral anticoagulants - hypercoagulable work-up will help determine length of therapy, however the fact that the patient has had recurrent DVT/PE without clear provoking factors makes him high risk for recurrence and may warrant lifelong anticoagulation regardless of work-up. - would recommend outpatient evaluation by vascular surgery to see if anatomic predisposition could be contributing due to prior crush injury and reconstruction of leg from chain saw injury - Rx nicotine patch given active smoking - CT A/P 01/25/17 without contrast showed status post distal pancreatectomy, irregular nodular infiltration of the left quadrant peritoneal fat, slightly increased since the prior examination. This is nonspecific but could represent a neoplastic process. f/u as outpatient - patient has an appointment to see me in clinic in 2 weeks Home Meds Active Scripts [Nicotine (14 Mg/24 Hr)] 1 PATCH PATCH No Conflict Check, 1 PATCH TRANSDERM DAILY for 30 Days Prov:BRIDGET TOWNSEND 01/30/17 Reported Medications Cholecalciferol* (Vitamin D3*) 1,000 Unit Tablet, 1000 UNIT PO DAILY, TAB 01/25/17 Zolpidem Tartrate* (Zolpidem Tartrate*) 5 Mg Tablet, 10 MG PO QHS Y for INSOMNIA , #30 TAB 01/25/17 Carisoprodol* (Carisoprodol*) 350 Mg Tablet, 350 MG PO BID Y for MUSCLE SPASMS, TAB 01/25/17 Sertraline Hcl* (Sertraline Hcl*) 100 Mg Tablet, 100 MG PO DAILY, #30 TAB 01/25/17 Ranitidine Hcl* (Ranitidine Hcl*) 150 Mg Tablet, 150 MG PO DAILY, #30 TAB 01/25/17 Simvastatin* (Zocor*) 20 Mg Tablet, 20 MG PO QHS, #30 TAB 08/24/16 Enoxaparin Sodium* (Lovenox*) 80 Mg/0.8 Ml Disp.syrin, 80 MG SC Q12, SYR 08/15/16 Discontinued Reported Medications Hydrocodone/Acetaminophen ([place] 10-325 Tablet) 1 Each Tablet, 1 EACH PO TID, TAB 01/25/17 Carisoprodol* (Soma*) 250 Mg Tablet, 250 MG PO NEEDED Y for BACK PAIN, TAB 01/25/17 Ranitidine Hcl* (Zantac*) 150 Mg Tablet, 150 MG PO BID, #60 TAB 08/15/16 Sertraline Hcl* (Zoloft*) 50 Mg Tablet, 50 MG PO BID, #30 TAB 08/15/16 Discontinued Scripts Oxycodone Hcl* (IR) (Oxycodone Hcl*) 5 Mg Capsule, 5 MG PO Q4H Y for PAIN, #20 CAP Prov:PEG HUNTER MD 08/26/16 Follow-up Plan dc home with sq lovenox with outpatient visit Dr To Primary Care Provider BRIDGET Miller Jan 30, 2017 16:01
== END 2017-01-30 15:35 | disposition home or self-care (01) | DRG 392 ==
LOC: E/R 18:47 → MS1 22:00
PROVIDERS: ADMIT Internal Medicine Nephrology; ATTEND Internal Medicine Nephrology
DX: R10.13 Epigastric pain (principal); D68.59 Other primary thrombophilia; Z90.411 Acquired partial absence of pancreas; Z87.11 Personal history of peptic ulcer disease; Z86.718 Personal history of other venous thrombosis and embolism; Z79.01 Long term (current) use of anticoagulants; Z86.711 Personal history of pulmonary embolism; F17.210 Nicotine dependence, cigarettes, uncomplicated; K21.9 Gastro-esophageal reflux disease without esophagitis; Z87.828 Personal history of other (healed) physical injury and trauma; R11.2 Nausea with vomiting, unspecified
CPT/HCPCS: 36415; 74176; 80048; 80053; 81001; 81240; 83690; 83890; 85025; 85300; 85302; 85305; 85378; 85613; 86146; 86147; 87086; 96374; 96375; C9113; J0696; J1170; J2270; J2405; J7030

== ENCOUNTER 2017-03-31 03:03 | Emergency (ER) | payer OTHER ==
[~2017-03-31] VITALS: Ht 177.8 cm; Wt 73.0 kg
[~2017-03-31 03:03] MED LIST changes: +CARI350T29 PO; +CHOL100062 PO; +Nicotine (14 Mg/24 Hr) TRANSDERM; -OXYC5CAP17 PO; +RANI150T5 PO; -RANI150T9 PO; +SERT-165 PO; -SERT50TA PO; +ZOLP5TAB7 PO
[2017-03-31 03:07] VITALS: Ht 177.8 cm; Wt 73.0 kg
[2017-03-31] MEDS ORDERED: ONDANSETRON 4 MG INJ IV STA ×2 (05:07→06:04)
[2017-03-31] MEDS ORDERED: morphine 4 MG/ML VIAL IV STA (05:07)
[2017-03-31 05:08] LABS: BASOPHIL # 0.1 10^3/ul (0.0-0.1); BASOPHILS % 0.5 % (0.0-2.0); EOSINOPHILS # 0.4 10^3/ul (0.0-0.5); HEMATOCRIT 44.3 % (42.0-52.0); HEMOGLOBIN 15.2 g/dl (14.0-18.0); LYMPHOCYTES # 2.2 10^3/ul (0.8-2.9); LYMPHOCYTES % 17.3 % (15.0-51.0); MEAN CORPUSCULAR HGB CONC 34.3 g/dl (32.0-37.0); MEAN CORPUSCULAR VOLUME 90.2 fl (82.0-101.0); MEAN PLATELET VOLUME 9.3 fl (7.4-10.4); MONOCYTE # 0.8 10^3/ul (0.3-0.9); MONOCYTES % 5.9 % (0.0-11.0); NEUTROPHILS % 72.3 % (39.0-77.0); PLATELET COUNT 253 10^3/UL (140-415); RED BLOOD COUNT 4.91 10^6/ul (4.70-6.10); RED CELL DISTRIBUTION WIDTH 12.9 % (11.5-14.5); WHITE BLOOD COUNT 12.9 10^3/ul (4.8-10.8)
[2017-03-31 06:00] LABS: ALBUMIN 4.8 g/dl (3.3-4.9); ALBUMIN/GLOBULIN RATIO 1.37; BILIRUBIN,INDIRECT 0.4 mg/dl (0-1.1); BILIRUBIN,TOTAL 0.4 mg/dl (0.2-1.3); CALCIUM 9.7 mg/dl (8.4-10.2); CREATININE 0.82 mg/dl (0.61-1.24); POTASSIUM 4.1 mmol/L (3.5-5.1); TOTAL PROTEIN 8.3 g/dl (6.1-8.1)
[2017-03-31] MEDS ORDERED: HYDROmorphONE 1 MG/ML SYG IV STA (06:04)
[2017-03-31] MEDS ORDERED: SOD CHLORIDE 0.9% 1,000 ML IV STA (06:05)
--- NOTE | 2017-03-31 07:15 | ERA ---
ER Documentation Chief Complaint Date/Time DATE: 03/31/17 TIME: 07:06 Chief Complaint upper abd pian w/ dizziness, hx- hiatal hernia HPI This is a 51-year-old male with multiple abdominal surgeries and a history of hiatal hernia who presents with epigastric abdominal pain. He describes it as 12 out of 10, constant and worse to touching. He denies any nausea or vomiting , no constipation. No fevers or chills. He denies any dysuria urgency or frequency, no back pain. ROS All systems reviewed and are negative except as per history of present illness. Medications Home Meds Active Scripts Omeprazole* (Omeprazole*) 20 Mg Capsule.dr, 20 MG PO BID for 30 Days Prov:BRANDI FRAZIER MD 03/31/17 Reported Medications Apixaban* (Eliquis*) 5 Mg Tablet, 5 MG PO BID, TAB 03/31/17 Cholecalciferol* (Vitamin D3*) 1,000 Unit Tablet, 1000 UNIT PO DAILY, TAB 01/25/17 Zolpidem Tartrate* (Zolpidem Tartrate*) 5 Mg Tablet, 10 MG PO QHS Y for INSOMNIA , #30 TAB 01/25/17 Carisoprodol* (Carisoprodol*) 350 Mg Tablet, 350 MG PO BID Y for MUSCLE SPASMS, TAB 01/25/17 Sertraline Hcl* (Sertraline Hcl*) 100 Mg Tablet, 100 MG PO DAILY, #30 TAB 01/25/17 Ranitidine Hcl* (Ranitidine Hcl*) 150 Mg Tablet, 150 MG PO DAILY, #30 TAB 01/25/17 Simvastatin* (Zocor*) 20 Mg Tablet, 20 MG PO QHS, #30 TAB 08/24/16 Discontinued Reported Medications Enoxaparin Sodium* (Lovenox*) 80 Mg/0.8 Ml Disp.syrin, 80 MG SC Q12, SYR 08/15/16 Discontinued Scripts [Nicotine (14 Mg/24 Hr)] 1 PATCH PATCH No Conflict Check, 1 PATCH TRANSDERM DAILY for 30 Days Prov:BRIDGET TOWNSEND 01/30/17 Allergies Allergies: Coded Allergies: propofol (Unverified Allergy, Unknown, SWELLING, 03/31/17) PMhx/Soc History of Surgery: Yes (PANCREATIC PARTIAL SX, ABD SX) Anesthesia Reaction: No Hx Neurological Disorder: No Hx Respiratory Disorders: Yes (ASTHMA) Hx Cardiac Disorders: No Hx Psychiatric Problems: Yes (DEPRESSION) Hx Miscellaneous Medical Probl: No Hx Alcohol Use: Yes Hx Substance Use: Yes (MARIJUANA) Hx Tobacco Use: Yes Smoking Status: Current some day smoker FmHx Family History: No diabetes Physical Exam Vitals Vital Signs Date Time Temp Pulse Resp B/P Pulse Ox O2 Delivery O2 Flow Rate FiO2 03/31/17 08:06 98.0 77 17 119/81 98 Room Air 03/31/17 06:42 79 17 129/87 98 Room Air 03/31/17 04:30 98.1 84 17 136/96 98 Room Air 03/31/17 03:07 98.3 92 20 135/83 99 Physical Exam General: Well developed, well nourished, no acute distress Head: Normocephalic, atraumatic. Eyes: Pupils equally reactive, EOM intact ENT: Moist mucous membranes Neck: Supple, no lymphadenopathy Respiratory: Lungs clear bilaterally, no distress Cardiovascular: RRR, no murmurs, rubs, or gallops Abdominal: Soft, Tenderness to the epigastrium with possible palpable ventral hernia that seems to be reducible. No peritonitis, no pulsatile mass : Deferred MSK: No edema, no unilateral swelling, 5/5 strength Neurologic: Alert and oriented, moving all extremities, normal speech, no focal weakness, no cerebellar signs Skin: No rash Psych: Normal mood Result Diagram: 03/31/17 0453 03/31/17 0453 Results 24 hrs Laboratory Tests Test 03/31/17 04:53 White Blood Count 12.910^3/ul Red Blood Count 4.9110^6/ul Hemoglobin 15.2g/dl Hematocrit 44.3% Mean Corpuscular Volume 90.2fl Mean Corpuscular Hemoglobin 31.0pg Mean Corpuscular Hemoglobin Concent 34.3g/dl Red Cell Distribution Width 12.9% Platelet Count 26543^3/UL Mean Platelet Volume 9.3fl Neutrophils % 72.3% Lymphocytes % 17.3% Monocytes % 5.9% Eosinophils % 3.0% Basophils % 0.5% Nucleated Red Blood Cells % 0.0/100WBC Neutrophils # (Manual) 9.310^3/ul Lymphocytes # 2.210^3/ul Monocytes # 0.810^3/ul Eosinophils # 0.410^3/ul Basophils # 0.110^3/ul Nucleated Red Blood Cells # 0.010^3/ul Sodium Level 142mmol/L Potassium Level 4.1mmol/L Chloride Level 108mmol/L Carbon Dioxide Level 21mmol/L Anion Gap 17 Blood Urea Nitrogen 12mg/dl Creatinine 0.82mg/dl Glucose Level 128mg/dl Calcium Level 9.7mg/dl Total Bilirubin 0.4mg/dl Direct Bilirubin 0.00mg/dl Indirect Bilirubin 0.4mg/dl Aspartate Amino Transf (AST/SGOT) 33IU/L Alanine Aminotransferase (ALT/SGPT) 36IU/L Alkaline Phosphatase 106IU/L Total Protein 8.3g/dl Albumin 4.8g/dl Globulin 3.50g/dl Albumin/Globulin Ratio 1.37 Lipase 55U/L Current Medications Medications (Trade) Dose Ordered Sig/Braden Route PRN Reason Start Time Stop Time Status Last Admin Dose Admin Morphine Sulfate (morphine) 4 mg ONCE STAT IV 03/31/17 05:07 03/31/17 05:08 DC 03/31/17 05:16 Ondansetron HCl (Zofran Inj) 4 mg ONCE STAT IV 03/31/17 05:07 03/31/17 05:08 DC 03/31/17 05:16 Hydromorphone HCl (Dilaudid) 0.5 mg ONCE STAT IV 03/31/17 06:04 03/31/17 06:05 DC 03/31/17 06:38 Ondansetron HCl 4 mg 4 mg ONCE STAT IV 03/31/17 06:04 03/31/17 06:05 DC 03/31/17 06:40 Sodium Chloride (NS) 1,000 ml @ 1,000 mls/hr Q1H STAT IV 03/31/17 06:05 03/31/17 07:04 DC 03/31/17 06:39 Famotidine (Pepcid) 20 mg ONCE STAT PO 03/31/17 07:39 03/31/17 07:41 DC 03/31/17 07:57 Miscellaneous Medication (Gi Cocktail (2)) 40 ml ONCE STAT PO 03/31/17 07:39 03/31/17 07:41 DC 03/31/17 07:56 Procedures/MDM EKG, MONITORS, & DIAGNOSTIC IMAGING: CT abdomen and pelvis IMPRESSION: Stable postsurgical changes related to prior distal pancreatectomy. Unchanged streaky nodular such tissue densities in the left quadrant unchanged. Nonobstructing bilateral renal calculi, unchanged. RPTAT: HC[facility] LAB INTERPRETATION: Slight leukocytosis, no evidence of hepatobiliary obstruction MEDICAL DECISION MAKING: The patient presents with abdominal pain. He has multiple abdominal surgeries in the past. The patient's clinical exam is concerning for ventral hernia, consideration for possible incarceration. Patient also has a hiatal hernia that could be causing his symptoms as well. CT imaging is indicated. No signs or symptoms concerning for cardiopulmonary process. ER COURSE: Diagnostic imaging is negative. The patient's abdominal pain is improving. He is asking for narcotic medications and exhibits behavior of narcotic dependence. The patient was given a GI cocktail. He needs to follow-up with his primary care physician, station mechanic helper and surgeon. He has a follow-up with his surgeon on the 11th of this month. The patient will be discharged on a PPI. I kept the patient and/or family informed of laboratory and diagnostic imaging results throughout the emergency room course. DISPOSITION PLAN: We discussed follow up with the patient's primary care doctor within 24 to 48 hours as needed. We also discussed return to the emergency room for worsening symptoms or worsening condition. Outpatient referral: Primary care, GI, general surgery Discharge Medications: Omeprazole Departure Diagnosis: Primary Impression: Abdominal pain Qualified Code: R10.84 - Generalized abdominal pain Condition: Stable BRANDI FRAZIER MD Mar 31, 2017 07:15
--- NOTE | 2017-03-31 07:16 | RADRPT ---
PROCEDURE: CT of the abdomen and pelvis without contrast CLINICAL INDICATION: Abdominal pain. TECHNIQUE: Spiral CT images through the abdomen and pelvis without the use of contrast. The admin istered radiation dose is CTDI 8.72 and DLP 511.75. One or more of the following dose reduction danita hniques were used: automated exposure control, adjustment of the mA and/or kV according to patient s ize, or use of iterative reconstruction technique. COMPARISON: 01/25/2017 FINDINGS: Lack of oral and intravenous contrast somewhat limits evaluation. Slight dependent atelectasis of the lung bases is seen. No pleural effusion is seen. The liver, spleen, and adrenal glands are normal in appearance. There is no evidence of cholelithia sis or biliary ductal dilatation. There are multiple clips adjacent to the spleen. Stable postsurg ical changes related to prior distal pancreatectomy . Streaky nodular soft tissue densities between the pancreas and spleen are again demonstrated. The pancreas is unchanged in appearance. The kidney s are normal in size and contour. Tiny calculi are seen in the lower pole of both kidneys. There i s no evidence of obstructive uropathy.. The aorta is normal in caliber.. Proximal small bowel is di stended dilated with multiple air-fluid levels. There is no evidence for bowel obstruction, free air , or abscess. The appendix is normal in appearance. There is colonic diverticulosis without eviden ce of diverticulitis. No adenopathy or ascites is seen. The bladder is normal. The prostate gland i s calcified. There is a small fat containing left inguinal hernia. There is mild degenerative change of the spine and hips. IMPRESSION: Stable postsurgical changes related to prior distal pancreatectomy. Unchanged streaky nodular such t issue densities in the left quadrant unchanged. Nonobstructing bilateral renal calculi, unchanged. RPTAT: HCNS Physician Bradley Date Time Electronically viewed and signed by Physician Bradley on 03/31/2017 07:16 CS/
[2017-03-31] MEDS ORDERED: LIDOCAINE/MYLANTA 40 ML BTL PO STA (07:39)
[2017-03-31] MEDS ORDERED: FAMOTIDINE 20 MG TAB PO STA (07:39)
[2017-03-31] MEDS ORDERED: OMEP20CA16 PO (07:42)
[2017-03-31] MEDS ORDERED: APIX5TAB PO (07:57)
[2017-03-31 08:06] VITALS: BP 119/81; PULSE 77; RESP 17; TEMP 98
== END 2017-03-31 08:16 | disposition home or self-care (01) ==
LOC: E/R 03:03
DX: R10.84 Generalized abdominal pain (principal); J45.909 Unspecified asthma, uncomplicated; F17.210 Nicotine dependence, cigarettes, uncomplicated
CPT/HCPCS: 36415; 74176; 80053; 83690; 85025; 96374; 96375; 96376; J1170; J2270; J2405; J7030; Z7502; Z7610

== ENCOUNTER 2017-08-22 06:45 | Day surgery (SDC) | END 2017-08-22 11:18 | disposition home or self-care (01) ==

== ENCOUNTER 2018-03-06 09:21 | Day surgery (SDC) | END 2018-03-06 11:25 | disposition home or self-care (01) ==

== ENCOUNTER 2018-12-03 09:28 | Inpatient (IN) | payer OTHER ==
[~2018-12-03] VITALS: Ht 167.6 cm; Wt 76.9 kg
[~2018-12-03 09:28] MED LIST changes: -CARI350T29 PO; -CHOL100062 PO; -ENOX80DI12 SC; -Nicotine (14 Mg/24 Hr) TRANSDERM; +PANT40TA3 PO; -RANI150T5 PO; +REGLAN PO; -SERT-165 PO; -SIMV20TA PO; -ZOLP5TAB7 PO
[2018-12-03] MEDS ORDERED: ASPIRIN 325 MG TAB PO STA (10:44)
[2018-12-03] MEDS ORDERED: SOD CHLORIDE 0.9% 500 ML IV STA (10:44)
[2018-12-03] MEDS ORDERED: ESCI10TA48 PO (11:40)
[2018-12-03] MEDS ORDERED: HYDR-3980 PO (11:41)
[2018-12-03] MEDS ORDERED: CARI350T29 PO (11:42)
[2018-12-03] MEDS ORDERED: ATOR20TA38 PO (11:43)
[2018-12-03] MEDS ORDERED: APIX5TAB PO (11:43)
[2018-12-03] MEDS ORDERED: MONT10TA24 PO (11:44)
[2018-12-03] MEDS ORDERED: FAMO20TA18 PO (11:44)
[2018-12-03] MEDS ORDERED: METO5TAB58 PO (11:45)
[2018-12-03] MEDS ORDERED: LIDOCAINE/MYLANTA 40 ML BTL PO STA (11:53)
[2018-12-03] MEDS ORDERED: BELLADONNA/PHENOBARBITAL TAB PO STA (11:53)
[2018-12-03] MEDS ORDERED: HYDROmorphONE 1 MG/ML SYG IV STA (11:53)
[2018-12-03] MEDS ORDERED: ONDANSETRON 4 MG INJ IV STA ×2 (11:53→12:50)
[2018-12-03] MEDS ORDERED: morphine 4 MG/ML VIAL IV STA ×2 (12:50→15:29)
[2018-12-03] MEDS ORDERED: ONDANSETRON 4 MG INJ IV PRN (13:00)
[2018-12-03] MEDS ORDERED: ACETAMINOPHEN 325 MG TAB PO PRN ×2 (13:00→16:00)
[2018-12-03] MEDS ORDERED: IOHEXOL 100 ML ONE (13:23)
[2018-12-03] MEDS ORDERED: SOD CHLORIDE 0.9% 100 ML ONE (13:23)
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
--- NOTE | 2018-12-03 15:30 | QN ---
Documentation Comment pt seen and examined RICARDO ALFONSO MD December 03, 2018 15:30
--- NOTE | 2018-12-03 15:36 | QN ---
Documentation Comment seen and examined RICARDO ALFONSO MD December 03, 2018 15:36
[2018-12-03] MEDS: APIXABAN 5 MG TABLET PO SCH (16:00)
[2018-12-03] MEDS ORDERED: NACL 0.9% 3 ML SYG IV SCH (16:00)
[2018-12-03] MEDS ORDERED: HYDROCODONE/APAP (5/325) TAB PO PRN (16:00)
[2018-12-03] MEDS ORDERED: DOCUSATE SODIUM 100 MG CAP PO PRN (16:00)
[2018-12-03] MEDS ORDERED: CARISOPRODOL 350 MG TAB PO PRN (16:00)
[2018-12-03 16:01] VITALS: PULSE 85
[2018-12-03 16:08] VITALS: Ht 167.6 cm; Wt 76.9 kg
[2018-12-03 16:30] VITALS: BP 139/84; PULSE 73; RESP 18
[2018-12-03] MEDS: ONDANSETRON 4 MG INJ IV PRN (16:41)
[2018-12-03] MEDS: morphine 2 MG INJ IV PRN ×2 (16:46→20:47)
[2018-12-03] MEDS: METOCLOPRAMIDE 5 MG TAB PO SCH (17:18)
--- NOTE | 2018-12-03 18:03 | HP ---
DATE OF ADMISSION: 12/03/2018 REASON FOR ADMISSION: Chest pain and left arm pain. HISTORY OF PRESENT ILLNESS: This is a 52-year-old male with a past medical history of pancreatic bi l mass removed by Dr. Kuhn, followed by Dr. Kuhn as an outpatient. The patient has also had multip le admissions in other hospital like [facility], where he had been seen by me before. Accor ding to the patient, he had a CT scan with contrast, barium swallow performed 6 days prior to arrival . Later that evening, the patient woke up with the left arm pain. The pain was 10/10 in intensity, woke him up from sleep. He was also having some chest pain. He also stated that he was also having pain in the left leg. He went to [facility], they told him his CK-MB was elevat ed; however, he was subsequently discharged home. The patient states that the left arm pain was not completely resolved and had called Dr. Kuhn office and was told to come for further evaluation. The patient said that he had recently changed his GI doctor to Dr. Higgins. He suffers from gastritis. He now takes Pepcid. Denied any swelling of the lower extremities. Occasionally suffers from abdomi nal pain. On arrival to ED, vital signs showed blood pressure was 124/82, pulse 76, respirations 21, saturating 99%. The patient had an EKG that was negative. Troponin was negative. BNP was 127. Th e patient had a chest x-ray that was negative. The patient had CT angiogram that had showed patient had no evidence of pulmonary embolism, atherosclerotic changes are present. 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 PAST MEDICAL HISTORY: 1. History of left leg deep venous thrombosis. 2. GERD, Carter esophagitis. 3. Colon polyp. 4. History of pancreatic tail mass removal. 5. Hypercholesterolemia. 6. Depression. ALLERGIES: NONE. MEDICATIONS TAKING AT HOME: 1. Soma p.r.n. as needed. 2. Eliquis 10 mg p.o. daily. 3. Atorvastatin 20. 4. Lexapro 10. 5. [place]. 6. Montelukast 10. 7. Pepcid 20. 8. Reglan 5 with meals. SOCIAL HISTORY: No history of smoking, alcohol or drug use. Lives with the girlfriend. FAMILY HISTORY: Noncontributory. PAST SURGICAL HISTORY: The patient had a Whipple surgery. REVIEW OF SYSTEMS: The patient complained of generalized abdominal pain, some nausea. Also, patient had some chest pain, left arm pain, left leg pain. Denies any headache, any vomiting, any diarrhea, any fevers and chills. Denies any hematemesis, any melena, any bright red per rectum. PHYSICAL EXAMINATION: VITAL SIGNS: Currently, blood pressure 124/82, pulse 76, respirations 21, saturating 99%. GENERAL: The patient is awake, alert, oriented, appears to be in mild distress secondary to pain. HEENT: Pupils are equal, round and reactive to light. NECK: Supple. HEART: Regular rate and rhythm. LUNGS: Clear to auscultation bilaterally. ABDOMEN: Some mild epigastric tenderness. No pulsatile abdominal masses. EXTREMITIES: Compartments are soft. No pain on abduction of bilateral upper extremities. NEUROLOGIC: Awake, alert, oriented. No neurologic deficits seen. DIAGNOSTIC DATA: Hemoglobin 13.4, platelet count is 158. BMP shows glucose of 263. BNP 127. INR _ ____. CT angio as above. Chest x-ray is negative. ASSESSMENT AND PLAN: This is a 52-year-old male who presented with: 1. Sudden onset of left arm pain, leg pain with a history of a CT angio that shows no marked stenosi s of the origin of celiac artery, appears to be stable from previous exam. EKG is negative. Troponi n is negative. CT is negative for any pulmonary embolism. 2. History of gastroparesis. 3. History of colon polyp. 4. Depression. 5. Hypercholesterolemia. 6. History of pancreatic mass. 7. Pain control. 8. History of left leg deep vein thrombosis. PLAN: At this period of time, the patient will be admitted to [facility]. The patient will be continued o n Eliquis, statin, pain control. Dr. Dickerson has been consulted. Cardiology has been consulted. Rest of the treatment will depend on the patient's hospitalization course. Dictated By: RICARDO YO/PATY Conf#: [id number] DID#: [id number]
[2018-12-03] MEDS ORDERED: NITROGLYCERIN (SL) 0.4 MG TAB SL PRN (18:30)
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
[2018-12-03] MEDS: HYDROCODONE/APAP (10/325) TAB PO PRN (18:54)
--- NOTE | 2018-12-03 19:16 | CONS ---
DATE OF ADMISSION: 12/03/2018 DATE OF CONSULTATION: 12/03/2018 REASON FOR CONSULTATION: Chest pain, assess for acute coronary syndrome. REQUESTING PHYSICIAN: Jania Logan M.D. HISTORY OF PRESENT ILLNESS: Mr. Bueno is a 52-year-old male with a complicated past medical hi story, although he is saying that he had a crush injury as a child which caused injury to the pancrea s, liver, stomach, and he had suffered villalta as a child. 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 The patient states that additionally, he has had a history of DVT after that with subsequent pulmonary embolism requiring long-term systemic anticoagulation and then underwent in the last week, a CT scan with IV and oral contrast through the right arm per patie nt and then woke up later that evening with pain in his left arm burning to stabbing and had already been having ongoing burning chest pain, which then over the last ensuing days has become a pressure-l valerio, occurring both at rest and with exertion. Upon arrival, temperature 98.8, blood pressure 155/98 , pulse 88, respiratory rate 18, satting 99%. The patient's labs revealed white count of 7.4, hemogl obin 30.4, platelet count 158. Sodium 136, potassium 4.4, creatinine 0.68. Troponin negative. BNP of 127. INR of 0.99. The patient's imaging studies were notable for a CTA that revealed no CT evide nce of pulmonary embolism, no aortic dissection, no acute pulmonary process and a chest x-ray subsequ ently revealed no acute disease. Bilateral costophrenic angles are not included. The patient's elec trocardiogram with normal sinus rhythm, rate of 74, normal axis, normal intervals with lateral T-wave inversion. The patient subsequently has been admitted to the floor and since admit to floor, denies ongoing pressure-like chest pain and does have some burning chest pain. PAST MEDICAL HISTORY: As above in HPI. MEDICATIONS CURRENTLY IN HOSPITAL: 1. Lexapro 10 mg daily. 2. Lipitor 20 mg at bedtime. 3. Pepcid 30 mg p.o. b.i.d. 4. Reglan. 5. Tylenol. 6. Morphine. 7. Eliquis 10 mg daily. 8. Soma. 9. [place]. ALLERGIES: NO KNOWN DRUG ALLERGIES. SOCIAL HISTORY: No current tobacco, ETOH or illicit drug use. FAMILY HISTORY: No history of sudden cardiac or early CAD. REVIEW OF SYSTEMS: As above in HPI. CONSTITUTIONAL: No fevers or chills. PULMONARY: No current signs of respiratory compromise. GASTROINTESTINAL: Abdominal pain. Gastroesophageal reflux disease. MUSCULOSKELETAL: No significant mylagias or arthralgias. ENDOCRINE: No documented history of diabetes mellitus. PSYCHIATRIC: Possible psychiatric medications. NEUROLOGIC: No documented history of CVA. PHYSICAL EXAMINATION: VITAL SIGNS: Temperature 98.3, blood pressure most recently 139/84, pulse 70, respiratory rate 18, s at 99%. GENERAL: The patient is alert, awake, no acute distress. NECK: JVP approximately assess his water. CHEST: Fair air movement throughout. HEART: Regular rate and rhythm. Normal S1, S2, I/ systolic murmur. Nondisplaced PMI. ABDOMEN: Positive bowel sounds, soft. EXTREMITIES: No significant pitting edema, 1+ pulses bilateral posterior tibial. LABORATORIES: Most recently from today, sodium 136, potassium 4.4, creatinine 0.6, glucose 263. Tro ponin negative. BNP 127. White blood cell count 7.4, hemoglobin 30.4, platelet count 158. IMAGING STUDIES: As above in HPI. No further imaging for my review at this time. ECG: As above in HPI. No further electrocardiograms for my review at this time. IMPRESSION: 1. Chest pain, assess for acute coronary syndrome. 2. Hypertension, borderline, labile. 3. Dyslipidemia. 4. History of pancreatic mass, status post removal. 5. History of recent CT scan with possible side effect to contrast. 6. Psychiatric disorder. 7. History of deep venous thrombosis and pulmonary embolism. 8. Anemia, mild. 9. Elevated blood glucose. RECOMMENDATIONS: 1. At this time, we will maintain patient on telemetry monitoring to follow rhythm and rate control closely. 2. We would continue the patient's current statin and adjust it according to fasting lipid panel ami cked and will give patient low-dose beta kenneth at this time in the setting of chest pains and borde rline blood pressures. 3. Continue the patient's Eliquis for prevention of recurrent thrombus, which should likely be taken either 5 mg b.i.d. or if he is having acute treatment 10 mg b.i.d. 4. Complete the patient's ____ to ensure the patient's chest pain is not due to acute coronary syndr ome or acute myocardial infarction. We will give patient sublingual nitroglycerin for recurrent epis odes of substernal chest pain. 5. Continue the patient's current Pepcid and we will additionally consider adding a proton pump inhi bitor. 6. We will check a 2D echo for this patient's ejection fraction, wall motion, rule out any major abn ormalities. 7. If the patient rules out for myocardial infarction, we will place the patient for cardiac stress test to take place first thing in the morning. Thank you for allowing me to take part in this patient. I will continue to follow him closely with juan adams, with further recommendations will be made as the patient progresses through inpatient hospital cl inical course. Dictated By: ANA MERCADO/PATY Conf#: [id number] DID#: [id number] CC: JANIA LOGAN;*EndHESHAM*
[2018-12-03 20:00] VITALS: BP 120/72; PULSE 65; PULSE 75; RESP 18
[2018-12-03] MEDS: MONTELUKAST 10 MG TAB PO SCH (20:45)
[2018-12-03] MEDS: FAMOTIDINE 20 MG TAB PO SCH (20:46)
[2018-12-03] MEDS: ATORVASTATIN 20 MG TAB PO SCH (20:46)
[2018-12-03] MEDS: METOPROLOL 25 MG TAB PO SCH (20:46)
[2018-12-03] MEDS ORDERED: morphine 2 MG INJ IV STA (21:29)
[2018-12-03 23:59] VITALS: BP 135/81; PULSE 63; RESP 18
[2018-12-04] VITALS (9 sets, daily range): BP systolic 104–120; BP diastolic 53–75; PULSE 58–75; RESP 18–20
[2018-12-04] MEDS: morphine 2 MG INJ IV PRN ×6 (01:46→23:49)
[2018-12-04] MEDS: HYDROCODONE/APAP (10/325) TAB PO PRN (02:55)
[2018-12-04] MEDS: METOCLOPRAMIDE 5 MG TAB PO SCH ×3 (05:47→18:08)
[2018-12-04] MEDS ORDERED: morphine 2 MG INJ IV STA ×2 (07:44→20:01)
[2018-12-04] MEDS: METOPROLOL 25 MG TAB PO SCH ×2 (08:33→20:14)
[2018-12-04] MEDS: ESCITALOPRAM 10 MG TAB PO SCH (08:33)
[2018-12-04] MEDS: APIXABAN 5 MG TABLET PO SCH (08:33)
[2018-12-04] MEDS: FAMOTIDINE 20 MG TAB PO SCH ×2 (08:33→20:15)
[2018-12-04] MEDS ORDERED: REGADENOSON 0.4 MG/5 ML SYG ONE (09:58)
--- NOTE | 2018-12-04 10:52 | CONS ---
Consult Date/Type/Reason Admit Date/Time December 03, 2018 at 12:51 Initial Consult Date Date/Time of Note DATE: 12/04/18 TIME: 10:51 Subjective NO acute evens - r/o NM - stress test today ROS: No fever, no chills, no nausea, no vomiting, no diarrhea/constipation No recent weight changes No chest pain, no PND, no orthopnea No dizziness, blurred vision No thirst, no heat or cold intolerance Objective Vitals Vital Signs Date Temp Pulse Resp B/P (MAP) Pulse Ox O2 O2 Flow FiO2 Time Delivery Rate 12/04/18 98.3 75 20 115/70 97 07:31 (85) 12/04/18 Room Air 04:00 Intake and Output 12/03/18 12/03/18 12/04/18 1414:59 22:59 06:59 IntakeIntake Total 600 ml 500 ml BalanceBalance 600 ml 500 ml Exam General: WN/WD/NAD, AOx 3 HEENT: Unicetric/atraumatic/EOMI (follow commands) NECK: JVD elevated, no thyromegaly Lymph: no lymphadenopathy HEART: regular with no S3, II/ systolic murmur at apex LUNGS: Coarse sounds ABD: soft, NT, ND, +BS : Intact Neuro: non focal SKIN: chronic changes EXT: trace edema Results/Medications Result Diagram: 12/04/1852312/04/18 0524 Results 24 hrs Laboratory Tests Test 12/03/18 11:01 12/03/18 16:58 12/03/18 23:09 12/04/18 05:24 White Blood Count 7.4 # 8.3 Red Blood Count 4.26 L 4.45 L Hemoglobin 13.4 L 13.8 L Hematocrit 39.7 L 41.5 L Mean Corpuscular Volume 93.2 93.3 Mean Corpuscular 31.5 31.0 Hemoglobin Mean Corpuscular 33.8 33.3 Hemoglobin Concent Red Cell Distribution 11.9 12.0 Width Platelet Count 158 # 160 Mean Platelet Volume 10.0 9.6 Immature Granulocytes % 0.800 H 1.100 H Neutrophils % 83.5 H 51.8 Lymphocytes % 11.7 L 37.2 Monocytes % 3.7 7.9 Eosinophils % 0.0 1.6 Basophils % 0.3 0.4 Nucleated Red Blood 0.0 0.0 Cells % Immature Granulocytes # 0.060 H 0.090 H Neutrophils # 6.2 4.3 Lymphocytes # 0.9 3.1 H Monocytes # 0.3 0.7 Eosinophils # 0.0 0.1 Basophils # 0.0 0.0 Nucleated Red Blood 0.0 0.0 Cells # Prothrombin Time 13.2 Prothrombin Time Ratio 1.0 INR International 0.99 Normalized Ratio Activated 24.8 Partial Thromboplast Time Sodium Level 136 138 Potassium Level 4.4 4.3 Chloride Level 101 101 Carbon Dioxide Level 26 30 Anion Gap 9 7 Blood Urea Nitrogen 15 16 Creatinine 0.68 0.91 Est Glomerular Filtrat > 60 > 60 Rate mL/min Glucose Level 263 H 137 # Calcium Level 9.6 9.3 Total Bilirubin 0.2 Direct Bilirubin 0.00 Indirect Bilirubin 0.2 Aspartate Amino 23 Transf (AST/SGOT) Alanine 27 Aminotransferase (ALT/SG PT) Alkaline Phosphatase 73 Creatine Kinase 126 92 95 Creatine Kinase Index 1.0 1.1 1.4 Creatinine Kinase MB 1.27 1.04 1.34 (Mass) Troponin I < 0.012 < 0.012 < 0.012 B-Type Natriuretic 127 H Peptide Total Protein 7.1 Albumin 4.4 Globulin 2.70 Albumin/Globulin Ratio 1.62 Phosphorus Level 3.9 Magnesium Level 2.3 Triglycerides Level 249 H Cholesterol Level 201 H LDL Cholesterol, 99 Calculated HDL Cholesterol 52 Cholesterol/HDL Ratio 3.8 Home Meds Reported Medications Metoclopramide* (Reglan*) 5 Mg Tablet, 5 MG PO AC MEALS, TAB 12/03/18 Famotidine* (Famotidine*) 20 Mg Tablet, 20 MG PO QID, #30 TAB 12/03/18 Montelukast Sodium* (Montelukast Sodium*) 10 Mg Tablet, 10 MG PO QHS, #30 TAB 12/03/18 Apixaban* (Eliquis*) 5 Mg Tablet, 10 MG PO DAILY, TAB 12/03/18 Atorvastatin Calcium* (Atorvastatin Calcium*) 20 Mg Tablet, 20 MG PO QHS, #30 TAB 12/03/18 Carisoprodol* (Carisoprodol*) 350 Mg Tablet, 175 MG PO NEEDED PRN for MUSCLE SPASMS, TAB 12/03/18 Hydrocodone/Acetaminophen ([place] 10-325 Tablet) 1 Each Tablet, 1 EACH PO TID PRN for NEEDED, TAB 12/03/18 Escitalopram Oxalate* (Escitalopram Oxalate*) 10 Mg Tablet, 10 MG PO DAILY, #30 TAB 12/03/18 Discontinued Reported Medications Pantoprazole* (Protonix*) 40 Mg Tablet.dr, 40 MG PO DAILY, TAB 03/06/18 [Reglan] No Conflict Check, PO 08/22/17 Medications Current Medications IV Flush (NS 3 ml) 3 ml PER PROTOCOL IV ; Start 12/03/18 at 16:00 Ondansetron HCl (Zofran Inj) 4 mg Q6H PRN IV NAUSEA/VOMITING Last administered on 12/03/18at 16:41; Admin Dose 4 MG; Start 12/03/18 at 16:00 Acetaminophen (Tylenol Tab) 650 mg Q6H PRN PO .PAIN 1-3 OR TEMP; Start 12/03/18 at 16:00 Acetaminophen/ Hydrocodone Bitart ([place] (5/325)) 1 tab Q6H PRN PO .MOD PAIN 4- 6; Start 12/03/18 at 16:00 Morphine Sulfate (morphine) 2 mg Q4H PRN IV .SEVERE PAIN 7-10 Last administered on 12/04/18 05:46; Admin Dose 2 MG; Start 12/03/18 at 16:00 Docusate Sodium (Colace) 100 mg Q12H PRN PO .CONSTIPATION Last administered on 12/03/18 23:54; Admin Dose 100 MG; Start 12/03/18 at 16:00 Apixaban (Eliquis) 10 mg DAILY PO Last administered on 12/04/18 08:33; Admin Dose 10 MG; Start 12/03/18 at 16:00 Atorvastatin Calcium (Lipitor) 20 mg QHS PO Last administered on 12/03/18 20:46; Admin Dose 20 MG; Start 12/03/18 at 21:00 Carisoprodol (Soma) 175 mg DAILY PRN PO MUSCLE SPASMS; Start 12/03/18 at 16:00 Escitalopram Oxalate (Lexapro) 10 mg DAILY PO Last administered on 12/04/18 08:33; Admin Dose 10 MG; Start 12/04/18 at 09:00 Famotidine (Pepcid) 20 mg BID PO Last administered on 12/04/18 08:33; Admin Dose 20 MG; Start 12/03/18 at 21:00 Acetaminophen/ Hydrocodone Bitart ([place] (10/325)) 1 tab TID PRN PO NEEDED Last administered on 12/04/18at 02:55; Admin Dose 1 TAB; Start 12/03/18 at 16:00 Metoclopramide HCl (Reglan) 5 mg AC MEALS PO Last administered on 12/04/18 05:47; Admin Dose 5 MG; Start 12/03/18 at 17:30 Montelukast Sodium (Singulair) 10 mg QHS PO Last administered on 12/03/18at 20:45 ; Admin Dose 10 MG; Start 12/03/18 at 21:00 Metoprolol Tartrate (Lopressor) 25 mg BID PO Last administered on 12/04/18 08:33; Admin Dose 25 MG; Start 12/03/18 at 21:00 Nitroglycerin (Nitroglycerin (Sl Tab) 0.4 Mg) 1 tab Q5M PRN SL ANGINA; Start 12/03/18 at 18:30 Assessment/Plan Hospital Course (Demo Recall) 1. Chest pain, assess for acute coronary syndrome- stress test planned today. 2. Hypertension, borderline, labile - will follow post test, better now. 3. Dyslipidemia. 4. History of pancreatic mass, status post removal. 5. History of recent CT scan with possible side effect to contrast. 6. Psychiatric disorder- on meds. 7. History of deep venous thrombosis and pulmonary embolism. 8. Anemia, mild. 9. Elevated blood glucose- defer to pmd. JACE BUSTOS MD December 04, 2018 10:52
--- NOTE | 2018-12-04 11:26 | CONS ---
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 Continue H2- kenneth-as patient is not able to tolerate PPI therapy Patient seen in collaboration with Dr. Higgins CC: CAITIE HIGGINS MD ; Consultation Date/Type/Reason Admit Date/Time December 03, 2018 at 12:51 Date of Consultation: December 04, 2018 Type of Consult Abdominal pain/CP Reason for Consultation GI Date/Time of Note DATE: 12/04/18 TIME: 11:14 Hx of Present Illness This is a 52-year-old male with past medical history of DVT/PE, Carter's esophagus , colon polyps removed with saline lift, pancreatic tail mass status post distal pancreatectomy, depression who was at an outside hospital last week according to patient he had a CT with contrast and barium swallow about his evaluated as [facility] with an elevated CK-MB was discharged home patient states symptoms did not resolve he called Dr. Victoria who instructed him to come to the ED for further evaluation. 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 Pt has jennifer c/o n/v hematemesis and occasional hematochezia. GI has been consulted for further evaluation. Pt states he currently has a burning sensation anterior chest, and usually has nausea with vomiting 1-3 per months, he did note hematemesis prior to hospitalization. He additionally c/o occasional rectal bleeding, which has become progressively worse. As noted above pt has a hx of Carter's esophagus and colon polyps. he is s/p stress test today. Discussed plan from EGD/colonoscopy tomorrow if cleared by surgery given history and current symptoms. Reviewed risk/benefits of both sedation and procedures patient verbalized understanding is agreeable. Review of Systems: A 12 system, review was conducted and is negative except as noted in the HPI or here. Past Medical History Home Meds Reported Medications Metoclopramide* (Reglan*) 5 Mg Tablet, 5 MG PO AC MEALS, TAB 12/03/18 Famotidine* (Famotidine*) 20 Mg Tablet, 20 MG PO QID, #30 TAB 12/03/18 Montelukast Sodium* (Montelukast Sodium*) 10 Mg Tablet, 10 MG PO QHS, #30 TAB 12/03/18 Apixaban* (Eliquis*) 5 Mg Tablet, 10 MG PO DAILY, TAB 12/03/18 Atorvastatin Calcium* (Atorvastatin Calcium*) 20 Mg Tablet, 20 MG PO QHS, #30 TAB 12/03/18 Carisoprodol* (Carisoprodol*) 350 Mg Tablet, 175 MG PO NEEDED PRN for MUSCLE SPASMS, TAB 12/03/18 Hydrocodone/Acetaminophen ([place] 10-325 Tablet) 1 Each Tablet, 1 EACH PO TID PRN for NEEDED, TAB 12/03/18 Escitalopram Oxalate* (Escitalopram Oxalate*) 10 Mg Tablet, 10 MG PO DAILY, #30 TAB 12/03/18 Discontinued Reported Medications Pantoprazole* (Protonix*) 40 Mg Tablet.dr, 40 MG PO DAILY, TAB 03/06/18 [Reglan] No Conflict Check, PO 08/22/17 Medications Current Medications IV Flush (NS 3 ml) 3 ml PER PROTOCOL IV ; Start 12/03/18 at 16:00 Ondansetron HCl (Zofran Inj) 4 mg Q6H PRN IV NAUSEA/VOMITING Last administered on 12/03/18at 16:41; Admin Dose 4 MG; Start 12/03/18 at 16:00 Acetaminophen (Tylenol Tab) 650 mg Q6H PRN PO .PAIN 1-3 OR TEMP; Start 12/03/18 at 16:00 Acetaminophen/ Hydrocodone Bitart ([place] (5/325)) 1 tab Q6H PRN PO .MOD PAIN 4- 6; Start 12/03/18 at 16:00 Morphine Sulfate (morphine) 2 mg Q4H PRN IV .SEVERE PAIN 7-10 Last administered on 12/04/18at 05:46; Admin Dose 2 MG; Start 12/03/18 at 16:00 Docusate Sodium (Colace) 100 mg Q12H PRN PO .CONSTIPATION Last administered on 12/03/18 23:54; Admin Dose 100 MG; Start 12/03/18 at 16:00 Apixaban (Eliquis) 10 mg DAILY PO Last administered on 12/04/18 08:33; Admin Dose 10 MG; Start 12/03/18 at 16:00 Atorvastatin Calcium (Lipitor) 20 mg QHS PO Last administered on 12/03/18 20:46; Admin Dose 20 MG; Start 12/03/18 at 21:00 Carisoprodol (Soma) 175 mg DAILY PRN PO MUSCLE SPASMS; Start 12/03/18 at 16:00 Escitalopram Oxalate (Lexapro) 10 mg DAILY PO Last administered on 12/04/18 08:33; Admin Dose 10 MG; Start 12/04/18 at 09:00 Famotidine (Pepcid) 20 mg BID PO Last administered on 12/04/18 08:33; Admin Dose 20 MG; Start 12/03/18 at 21:00 Acetaminophen/ Hydrocodone Bitart ([place] (10/325)) 1 tab TID PRN PO NEEDED Last administered on 12/04/18 02:55; Admin Dose 1 TAB; Start 12/03/18 at 16:00 Metoclopramide HCl (Reglan) 5 mg AC MEALS PO Last administered on 12/04/18 05:47; Admin Dose 5 MG; Start 12/03/18 at 17:30 Montelukast Sodium (Singulair) 10 mg QHS PO Last administered on 12/03/18 20:45; Admin Dose 10 MG; Start 12/03/18 at 21:00 Metoprolol Tartrate (Lopressor) 25 mg BID PO Last administered on 12/04/18 08:33; Admin Dose 25 MG; Start 12/03/18 at 21:00 Nitroglycerin (Nitroglycerin (Sl Tab) 0.4 Mg) 1 tab Q5M PRN SL ANGINA; Start 12/03/18 at 18:30 Allergies: Coded Allergies: No Known Drug Allergies (Verified Allergy, Unknown, 12/03/18) Past Surgical History Past Surgical Hx: bowel resection, other Social History Smoking Status: Unknown if ever smoked Exam/Review of Systems Exam Vitals Vital Signs Date Temp Pulse Resp B/P (MAP) Pulse Ox O2 O2 Flow FiO2 Time Delivery Rate 12/04/18 98.3 75 20 115/70 97 07:31 (85) 12/04/18 Room Air 04:00 Intake and Output 12/03/18 12/03/18 12/04/18 1414:59 22:59 06:59 IntakeIntake Total 600 ml 500 ml BalanceBalance 600 ml 500 ml Exam PHYSICAL EXAMINATION: GENERAL: Alert & oriented x 3, in no acute distress SKIN: No lesions HEAD: Normocephalic, atraumatic, no tenderness. EYES: Pupils equal reactive to light and accommodation, no discharge. EARS/NOSE AND THROAT: Ears normal, nose normal. NECK: Supple, no masses, thyroid normal. CHEST: Inspection within normal limits. CARDIOVASCULAR: Heart: Regular rate and rhythm. RESPIRATORY: Lungs clear to auscultation. GASTROINTESTINAL AND LIVER: Abdomen: Soft, non tenderness, non-distended, no hernias, no masses, no organomegaly, no ascites, no guarding, no rebound tenderness, normoactive bowel sounds. Rectal: Deferred. EXTREMITIES: No cyanosis, clubbing or edema. Results Result Diagram: 12/04/1852312/04/18523 Results 24hrs Laboratory Tests Test 12/03/18 16:58 12/03/18 23:09 12/04/18 05:24 Creatine Kinase 92 95 Creatine Kinase Index 1.1 1.4 Creatinine Kinase MB (Mass) 1.04 1.34 Troponin I < 0.012 < 0.012 White Blood Count 8.3 Red Blood Count 4.45 L Hemoglobin 13.8 L Hematocrit 41.5 L Mean Corpuscular Volume 93.3 Mean Corpuscular Hemoglobin 31.0 Mean Corpuscular Hemoglobin Concent 33.3 Red Cell Distribution Width 12.0 Platelet Count 160 Mean Platelet Volume 9.6 Immature Granulocytes % 1.100 H Neutrophils % 51.8 Lymphocytes % 37.2 Monocytes % 7.9 Eosinophils % 1.6 Basophils % 0.4 Nucleated Red Blood Cells % 0.0 Immature Granulocytes # 0.090 H Neutrophils # 4.3 Lymphocytes # 3.1 H Monocytes # 0.7 Eosinophils # 0.1 Basophils # 0.0 Nucleated Red Blood Cells # 0.0 Sodium Level 138 Potassium Level 4.3 Chloride Level 101 Carbon Dioxide Level 30 Anion Gap 7 Blood Urea Nitrogen 16 Creatinine 0.91 Est Glomerular Filtrat Rate mL/min > 60 Glucose Level 137 # Calcium Level 9.3 Phosphorus Level 3.9 Magnesium Level 2.3 Triglycerides Level 249 H Cholesterol Level 201 H LDL Cholesterol, Calculated 99 HDL Cholesterol 52 Cholesterol/HDL Ratio 3.8 Medications Medication Current Medications IV Flush (NS 3 ml) 3 ml PER PROTOCOL IV ; Start 12/03/18 at 16:00 Ondansetron HCl (Zofran Inj) 4 mg Q6H PRN IV NAUSEA/VOMITING Last administered on 12/03/18 16:41; Admin Dose 4 MG; Start 12/03/18 at 16:00 Acetaminophen (Tylenol Tab) 650 mg Q6H PRN PO .PAIN 1-3 OR TEMP; Start 12/03/18 at 16:00 Acetaminophen/ Hydrocodone Bitart ([place] (5/325)) 1 tab Q6H PRN PO .MOD PAIN 4- 6; Start 12/03/18 at 16:00 Morphine Sulfate (morphine) 2 mg Q4H PRN IV .SEVERE PAIN 7-10 Last administered on 12/04/18 05:46; Admin Dose 2 MG; Start 12/03/18 at 16:00 Docusate Sodium (Colace) 100 mg Q12H PRN PO .CONSTIPATION Last administered on 12/03/18 23:54; Admin Dose 100 MG; Start 12/03/18 at 16:00 Apixaban (Eliquis) 10 mg DAILY PO Last administered on 12/04/18 08:33; Admin Dose 10 MG; Start 12/03/18 at 16:00 Atorvastatin Calcium (Lipitor) 20 mg QHS PO Last administered on 12/03/18 20:46; Admin Dose 20 MG; Start 12/03/18 at 21:00 Carisoprodol (Soma) 175 mg DAILY PRN PO MUSCLE SPASMS; Start 12/03/18 at 16:00 Escitalopram Oxalate (Lexapro) 10 mg DAILY PO Last administered on 12/04/18 08:33; Admin Dose 10 MG; Start 12/04/18 at 09:00 Famotidine (Pepcid) 20 mg BID PO Last administered on 12/04/18 08:33; Admin Dose 20 MG; Start 12/03/18 at 21:00 Acetaminophen/ Hydrocodone Bitart ([place] (10/325)) 1 tab TID PRN PO NEEDED Last administered on 12/04/18at 02:55; Admin Dose 1 TAB; Start 12/03/18 at 16:00 Metoclopramide HCl (Reglan) 5 mg AC MEALS PO Last administered on 12/04/18at 05:47; Admin Dose 5 MG; Start 12/03/18 at 17:30 Montelukast Sodium (Singulair) 10 mg QHS PO Last administered on 12/03/18at 20:45; Admin Dose 10 MG; Start 12/03/18 at 21:00 Metoprolol Tartrate (Lopressor) 25 mg BID PO Last administered on 12/04/18at 08:33; Admin Dose 25 MG; Start 12/03/18 at 21:00 Nitroglycerin (Nitroglycerin (Sl Tab) 0.4 Mg) 1 tab Q5M PRN SL ANGINA; Start 12/03/18 at 18:30 CARLENE ARMIJO December 04, 2018 11:24
--- NOTE | 2018-12-04 11:56 | PN ---
Date/Time of Note Date/Time of Note DATE: 12/04/18 TIME: 11:56 Assessment/Plan VTE Prophylaxis Risk score (from Ns)>0 risk: 7 SCD applied (from [facility]): No SCD contraindicated: low risk/ambulating Pharmacological prophylaxis: NA/contraindicated Pharm contraindication: low risk/ambulating Lines/Catheters IV Catheter Type (from [facility]): [place] Assessment/Plan Assessment/Plan ASSESSMENT AND PLAN: This is a 52-year-old male who presented with: 1. Sudden onset of left arm pain, leg pain and left chest pain after CT scan ? allergic with a history of a CT angio that shows no marked stenosis of the origin of celiac artery, appears to be stable from previous exam. EKG is negative. Troponin is negative. CT is negative for any pulmonary embolism. 2. History of gastroparesis.with severe reflux 3. History of colon polyp.s/p colonoscopy 4. Depression. 5. Hypercholesterolemia. 6. History of pancreatic mass. 7. Pain control. 8. History of left leg deep vein thrombosis.on eliquis PLAN - Stress test today - dr titus EGD/ Colonoscopy - Pt was recommended to see pain specialist as OPD> with drug seeking behaviour> taking only Banks at home - PPI FU GI recs Result Diagram: 12/04/1852312/04/1824 Results 24hrs Laboratory Tests Test 12/03/18 16:58 12/03/18 23:09 12/04/18 05:24 Creatine Kinase 92 95 Creatine Kinase Index 1.1 1.4 Creatinine Kinase MB (Mass) 1.04 1.34 Troponin I < 0.012 < 0.012 White Blood Count 8.3 Red Blood Count 4.45 L Hemoglobin 13.8 L Hematocrit 41.5 L Mean Corpuscular Volume 93.3 Mean Corpuscular Hemoglobin 31.0 Mean Corpuscular Hemoglobin Concent 33.3 Red Cell Distribution Width 12.0 Platelet Count 160 Mean Platelet Volume 9.6 Immature Granulocytes % 1.100 H Neutrophils % 51.8 Lymphocytes % 37.2 Monocytes % 7.9 Eosinophils % 1.6 Basophils % 0.4 Nucleated Red Blood Cells % 0.0 Immature Granulocytes # 0.090 H Neutrophils # 4.3 Lymphocytes # 3.1 H Monocytes # 0.7 Eosinophils # 0.1 Basophils # 0.0 Nucleated Red Blood Cells # 0.0 Sodium Level 138 Potassium Level 4.3 Chloride Level 101 Carbon Dioxide Level 30 Anion Gap 7 Blood Urea Nitrogen 16 Creatinine 0.91 Est Glomerular Filtrat Rate mL/min > 60 Glucose Level 137 # Calcium Level 9.3 Phosphorus Level 3.9 Magnesium Level 2.3 Triglycerides Level 249 H Cholesterol Level 201 H LDL Cholesterol, Calculated 99 HDL Cholesterol 52 Cholesterol/HDL Ratio 3.8 Subjective 24 Hr Interval Summary Free Text/Dictation requesting mrphine 4 mg insead of 2 mg " 4 mg morphine is better tolertaed than 2 mg dilaudid per patient" Exam/Review of Systems Exam Vitals Vital Signs Date Temp Pulse Resp B/P (MAP) Pulse Ox O2 O2 Flow FiO2 Time Delivery Rate 12/04/18 63 08:01 12/04/18 98.3 20 115/70 97 07:31 (85) 12/04/18 Room Air 04:00 Intake and Output 12/03/18 12/03/18 12/04/18 1515:00 23:00 07:00 IntakeIntake Total 600 ml 500 ml BalanceBalance 600 ml 500 ml Exam GENERAL: The patient is awake, alert, oriented, appears to be in mild distress secondary to pain. HEENT: Pupils are equal, round and reactive to light. NECK: Supple. HEART: Regular rate and rhythm. LUNGS: Clear to auscultation bilaterally. ABDOMEN: Some mild epigastric tenderness. No pulsatile abdominal masses. EXTREMITIES: Compartments are soft. No pain on abduction of bilateral upper extremities. NEUROLOGIC: Awake, alert, oriented. No neurologic deficits seen. Results Results 24hrs Laboratory Tests Test 12/03/18 16:58 12/03/18 23:09 12/04/18 05:24 Creatine Kinase 92 95 Creatine Kinase Index 1.1 1.4 Creatinine Kinase MB (Mass) 1.04 1.34 Troponin I < 0.012 < 0.012 White Blood Count 8.3 Red Blood Count 4.45 L Hemoglobin 13.8 L Hematocrit 41.5 L Mean Corpuscular Volume 93.3 Mean Corpuscular Hemoglobin 31.0 Mean Corpuscular Hemoglobin Concent 33.3 Red Cell Distribution Width 12.0 Platelet Count 160 Mean Platelet Volume 9.6 Immature Granulocytes % 1.100 H Neutrophils % 51.8 Lymphocytes % 37.2 Monocytes % 7.9 Eosinophils % 1.6 Basophils % 0.4 Nucleated Red Blood Cells % 0.0 Immature Granulocytes # 0.090 H Neutrophils # 4.3 Lymphocytes # 3.1 H Monocytes # 0.7 Eosinophils # 0.1 Basophils # 0.0 Nucleated Red Blood Cells # 0.0 Sodium Level 138 Potassium Level 4.3 Chloride Level 101 Carbon Dioxide Level 30 Anion Gap 7 Blood Urea Nitrogen 16 Creatinine 0.91 Est Glomerular Filtrat Rate mL/min > 60 Glucose Level 137 # Calcium Level 9.3 Phosphorus Level 3.9 Magnesium Level 2.3 Triglycerides Level 249 H Cholesterol Level 201 H LDL Cholesterol, Calculated 99 HDL Cholesterol 52 Cholesterol/HDL Ratio 3.8 Medications Medication Current Medications IV Flush (NS 3 ml) 3 ml PER PROTOCOL IV ; Start 12/03/18 at 16:00 Ondansetron HCl (Zofran Inj) 4 mg Q6H PRN IV NAUSEA/VOMITING Last administered on 12/03/18 16:41; Admin Dose 4 MG; Start 12/03/18 at 16:00 Acetaminophen (Tylenol Tab) 650 mg Q6H PRN PO .PAIN 1-3 OR TEMP; Start 12/03/18 at 16:00 Acetaminophen/ Hydrocodone Bitart ([place] (5/325)) 1 tab Q6H PRN PO .MOD PAIN 4- 6; Start 12/03/18 at 16:00 Morphine Sulfate (morphine) 2 mg Q4H PRN IV .SEVERE PAIN 7-10 Last administered on 12/04/18 11:28; Admin Dose 2 MG; Start 12/03/18 at 16:00 Docusate Sodium (Colace) 100 mg Q12H PRN PO .CONSTIPATION Last administered on 12/03/18 23:54; Admin Dose 100 MG; Start 12/03/18 at 16:00 Apixaban (Eliquis) 10 mg DAILY PO Last administered on 12/04/18 08:33; Admin Dose 10 MG; Start 12/03/18 at 16:00 Atorvastatin Calcium (Lipitor) 20 mg QHS PO Last administered on 12/03/18 20:4 6; Admin Dose 20 MG; Start 12/03/18 at 21:00 Carisoprodol (Soma) 175 mg DAILY PRN PO MUSCLE SPASMS; Start 12/03/18 at 16:00 Escitalopram Oxalate (Lexapro) 10 mg DAILY PO Last administered on 12/04/18 08:33; Admin Dose 10 MG; Start 12/04/18 at 09:00 Famotidine (Pepcid) 20 mg BID PO Last administered on 12/04/18 08:33; Admin Dose 20 MG; Start 12/03/18 at 21:00 Acetaminophen/ Hydrocodone Bitart ([place] (10/325)) 1 tab TID PRN PO NEEDED Last administered on 12/04/18 02:55; Admin Dose 1 TAB; Start 12/03/18 at 16:00 Metoclopramide HCl (Reglan) 5 mg AC MEALS PO Last administered on 12/04/18 11:22; Admin Dose 5 MG; Start 12/03/18 at 17:30 Montelukast Sodium (Singulair) 10 mg QHS PO Last administered on 12/03/18at 20:45; Admin Dose 10 MG; Start 12/03/18 at 21:00 Metoprolol Tartrate (Lopressor) 25 mg BID PO Last administered on 12/04/18 08:33; Admin Dose 25 MG; Start 12/03/18 at 21:00 Nitroglycerin (Nitroglycerin (Sl Tab) 0.4 Mg) 1 tab Q5M PRN SL ANGINA; Start 12/03/18 at 18:30 RICARDO ALFONSO MD December 04, 2018 11:56
[2018-12-04] MEDS: HYDROCODONE/APAP (5/325) TAB PO PRN (12:15)
[2018-12-04] MEDS ORDERED: BISACODYL (EC) 5 MG TAB PO ONE (12:30)
--- NOTE | 2018-12-04 12:42 | CONS ---
DATE OF ADMISSION: 12/03/2018 DATE OF CONSULTATION: 12/04/2018 TYPE OF CONSULTATION: Cardiology. REFERRING PHYSICIAN: Dr. Lianet Grady. REASON FOR EVALUATION: Chest pain. HISTORY OF PRESENT ILLNESS: The patient was brought into heart station in fasting condition. Initia l blood pressure was 127/82, heart rate was in the 50s. He tolerated the injection well. There is n o ischemia noted. The imaging portion is dictated separately. Dictated By: JACE BUSTOS MD ML/NTS Conf#: [id number] DID#: [id number] CC: RICARDO ALFONSO;*EndCC*
--- NOTE | 2018-12-04 15:55 | RADRPT ---
Vent Rate: 58 bpm RR Interval: 1032 msec [place] Interval: 124 msec QRS Duration: 92 msec QT Interval: 399 msec QTC Interval: 393 msec P-R-T [place]: 59 - 70 - 62 degrees Sinus rhythm...normal P axis, V-rate 50- 99 Electronically Signed By: Fabio Davis
--- NOTE | 2018-12-04 16:12 | PN ---
DATE: 12/04/2018 SUBJECTIVE: Feels slightly better. OBJECTIVE: GENERAL: Awake, alert and oriented x3. No chest pain at this time. VITAL SIGNS: Temperature maximum 98.3, heart rate 75, respirations 20, blood pressure 115/70, satura tion 97% on room air. HEART: Regular. LUNGS: Clear. ABDOMEN: Soft. EXTREMITIES: Lower extremity is negative for tenderness. LABORATORY DATA: Today, sodium, potassium, BUN, creatinine within normal limits. Triglyceride 249 s lightly elevated, cholesterol total 201 slightly elevated. Hematology: WBC 8300 with 51% segmented which is normal, hemoglobin 13.8, hematocrit 41.5, normal. IMAGING: The patient had a SPECT scan cardiac nuclear medicine test done today, ordered by cardiolog ist. ASSESSMENT AND PLAN: A 52-year-old gentleman who was admitted because of almost 1-week history of on and off chest pain radiating to left upper extremity and lower extremity. Disk Recoater and gastroen terologist colleagues are on the case. 1. Lexiscan SPECT test was done today. We are awaiting the report to be seen by shoe lining fitter. 2. Considering the patient has been complaining of too much reflux and also gives history of hiatal hernia and duodenal polyp, therefore a consultation from GI colleague has been requested and has been seen by Dr. Higgins. The plan from their point of view is to proceed with EGD if from cardiology poi nt of view is okay. We will continue to follow the patient along with other colleagues. Dictated By: BOB NICHOLAS MD PS/NTS Conf#: [id number] DID#: [id number] CC: AL TOMLIN MD; RICARDO ALFONSO;*End*
[2018-12-04] MEDS ORDERED: MAGNESIUM CITRATE 300 ML BTL PO ONE (17:30)
[2018-12-04] MEDS ORDERED: POLYETHYLENE GLYCOL 3350 119 GM POWDER PO ONE (18:30)
[2018-12-04] MEDS: ATORVASTATIN 20 MG TAB PO SCH (20:14)
[2018-12-04] MEDS: MONTELUKAST 10 MG TAB PO SCH (20:14)
[2018-12-05] VITALS (21 sets, daily range): BP systolic 100–135; BP diastolic 58–85; PULSE 58–70; RESP 12–21
[2018-12-05] MEDS: morphine 2 MG INJ IV PRN ×3 (04:26→13:47)
[2018-12-05] MEDS ORDERED: POLYETHYLENE GLYCOL 3350 119 GM POWDER PO ONE (06:00)
[2018-12-05] MEDS: HYDROCODONE/APAP (10/325) TAB PO PRN (06:35)
[2018-12-05] MEDS: METOCLOPRAMIDE 5 MG TAB PO SCH ×3 (06:51→17:30)
[2018-12-05] MEDS ORDERED: BISACODYL (EC) 5 MG TAB PO ONE (08:00)
[2018-12-05] MEDS: ESCITALOPRAM 10 MG TAB PO SCH (08:31)
[2018-12-05] MEDS: FAMOTIDINE 20 MG TAB PO SCH (08:31)
[2018-12-05] MEDS: METOPROLOL 25 MG TAB PO SCH ×2 (08:32→20:03)
[2018-12-05] MEDS ORDERED: morphine 4 MG/ML VIAL IV STA (08:44)
--- NOTE | 2018-12-05 12:54 | CONS ---
Assessment/Plan Assessment/Plan Hospital Course (Demo Recall) IMPRESSION: 1. Chest pain, assess for acute coronary syndrome.-neg trop x 3. Lexiscan EF 49% scar but no sig ischemia 2. Hypertension, borderline, labile. 3. Dyslipidemia-LDL 99 HDL 52 4. History of pancreatic mass, status post removal. 5. History of recent CT scan with possible side effect to contrast. 6. Psychiatric disorder. 7. History of deep venous thrombosis and pulmonary embolism. 8. Anemia, mild. 9. Elevated blood glucose. Recc: -Tle -Ok to proceed to endoscopy at moderate CV risk -Contineu BB/statin -Eliquis held in the setting of anemia nd for procedure today Consultation Date/Type/Reason Admit Date/Time December 03, 2018 at 12:51 Initial Consult Date 12/04/18 Type of Consult Cardiology Reason for Consultation chest pain Requesting Provider: RICARDO ALFONSO MD Date/Time of Note DATE: 12/05/18 TIME: 12:51 Exam/Review of Systems Vital Signs Vitals Vital Signs Date Temp Pulse Resp B/P (MAP) Pulse Ox O2 O2 Flow FiO2 Time Delivery Rate 12/05/18 63 12:14 12/05/18 98.2 20 135/61 98 Room Air 11:33 (85) Intake and Output 12/04/18 12/04/18 12/05/18 1515:00 23:00 07:00 IntakeIntake Total 800 ml 1600 ml OutputOutput Total 900 ml BalanceBalance -900 ml 800 ml 1600 ml Exam Exam Review of Systems: CONSTITUTIONAL: No fevers, chills. PULMONARY: No sob CARDIOVASCULAR:intermittent chest pain GASTROINTESTINAL: No nausea/vomiting. GENITOURINARY: No hematuria/dysuria. MUSCULOSKELETAL: No myagias/arthalgias. PSYCHIATRIC: The patient denies depression. NEUROLOGIC: No weakness Constitutional: alert Psych: no complaints Head: normocephalic ENMT: mucosa pink and moist Neck: supple, jvd (9 cm water) Respiratory: diminished breath sounds (at bases/B) Cardiovascular: regular rate and rhythm Gastrointestinal: soft, non-tender Musculoskeletal: muscle tone (normal) Extremities: edema (none) Neurological: other (No focal deficits) Labs Result Diagram: 12/04/1852312/04/18523 Medications Medications Current Medications IV Flush (NS 3 ml) 3 ml PER PROTOCOL IV ; Start 12/03/18 at 16:00 Ondansetron HCl (Zofran Inj) 4 mg Q6H PRN IV NAUSEA/VOMITING Last administered on 12/03/18 16:41; Admin Dose 4 MG; Start 12/03/18 at 16:00 Acetaminophen (Tylenol Tab) 650 mg Q6H PRN PO .PAIN 1-3 OR TEMP; Start 12/03/18 at 16:00 Morphine Sulfate (morphine) 2 mg Q4H PRN IV .SEVERE PAIN 7-10 Last administered on 12/05/18 08:31; Admin Dose 2 MG; Start 12/03/18 at 16:00 Docusate Sodium (Colace) 100 mg Q12H PRN PO .CONSTIPATION Last administered on 12/03/18 23:54; Admin Dose 100 MG; Start 12/03/18 at 16:00 Apixaban (Eliquis) 10 mg DAILY PO Last administered on 12/04/18 08:33; Admin Dose 10 MG; Start 12/03/18 at 16:00; Status Hold Atorvastatin Calcium (Lipitor) 20 mg QHS PO Last administered on 12/04/18 20:14; Admin Dose 20 MG; Start 12/03/18 at 21:00 Carisoprodol (Soma) 175 mg DAILY PRN PO MUSCLE SPASMS; Start 12/03/18 at 16:00 Escitalopram Oxalate (Lexapro) 10 mg DAILY PO Last administered on 12/05/18 08:31; Admin Dose 10 MG; Start 12/04/18 at 09:00 Famotidine (Pepcid) 20 mg BID PO Last administered on 12/05/18 08:31; Admin Dose 20 MG; Start 12/03/18 at 21:00 Acetaminophen/ Hydrocodone Bitart ([place] (10/325)) 1 tab TID PRN PO NEEDED Last administered on 12/05/18 06:35; Admin Dose 1 TAB; Start 12/03/18 at 16:00 Metoclopramide HCl (Reglan) 5 mg AC MEALS PO Last administered on 12/05/18 06:51; Admin Dose 5 MG; Start 12/03/18 at 17:30 Montelukast Sodium (Singulair) 10 mg QHS PO Last administered on 12/04/18 20:14; Admin Dose 10 MG; Start 12/03/18 at 21:00 Metoprolol Tartrate (Lopressor) 25 mg BID PO Last administered on 12/05/18at 08:32; Admin Dose 25 MG; Start 12/03/18 at 21:00 Nitroglycerin (Nitroglycerin (Sl Tab) 0.4 Mg) 1 tab Q5M PRN SL ANGINA; Start 12/03/18 at 18:30 Acetaminophen/ Hydrocodone Bitart ([place] (5/325)) 1 tab Q4H PRN PO .MOD PAIN 4- 6 Last administered on 12/04/18at 12:15; Admin Dose 1 TAB; Start 12/04/18 at 12:00 ANA RENNER December 05, 2018 12:54
--- NOTE | 2018-12-05 13:13 | QN ---
Documentation Comment Patient was seen at the bedside he Was quite upset about not getting his morphine 4 mg / 6 mg [id number] and he said he is not happy with his care Checked his cures account patient had received [place] 10/325 in August and also [place] 10/325 in October, he had 90 pills Patient tells me that he is able to tolerate 4 mg of morphine better than 2 mg of Dilaudid but he only takes [place] at home Patient came in complaining of chest pain and left arm pain and leg pain after the CT scan was done .since admission CT of the chest negative, nuclear stress test is negative, and was seen by multiple consultants surgery GI and cardiovascular, patient is scheduled to have EGD and colonoscopy with GI today. Patient is clearly complaining of left arm pain some chest pain, even the arterial duplex of the left arm is negative, all studies have been negative so far Spoke to Dr. Celaya who will take over the patient's care management further on RICARDO ALFONSO MD December 05, 2018 13:13
--- NOTE | 2018-12-05 15:05 | PN ---
DATE: 12/05/2018 SUBJECTIVE: The patient has been admitted due to severe chest pain radiation with left upper extremity and left lower extremity underneath. The patient has been worked up so far. Cardiology has seen the patient. Lexiscan has been done. GI colleague is planning to do endoscopy and colonoscopy today. Today, the patient is complaining of too much pain in the left upper extremity and is requesting morphine injection but Dr. Alfonso, the internal medicine and admitting physician, she believes that the patient should take [place] and she cannot find the reason for so much pain. OBJECTIVE: GENERAL: Awake, alert, lying on the bed. VITAL SIGNS: Temperature maximum 98.6, heart rate 68, respirations 20, blood pressure 135/61, saturation 98% on room air. LABORATORY DATA: No lab was done today. No leukocytosis yesterday. Lead Generator, Dr. Martini, has followed the patient and has evaluated the scan, Doppler and echocardiogram and he has recommended to continue holding the Eliquis. ASSESSMENT: Acute coronary syndrome with negative troponin x3. Lexiscan with ejection fraction of 49%, a scar but no significant ischemia has been found. Okay to proceed with endoscopy at moderate cardiovascular risk. Therefore, the patient is supposed to have endoscopic colonoscopy. Today, the patient was telling me that he has had problem with his cervical spine and has been evaluated and admitted in other place with MRI and there, he has been told that he has severe degenerative changes in the H and H and now, he thinks that maybe the pain from the left upper extremity is from the neck. In any case, we will wait for the result of endoscopy and colonoscopy. Dictated By: BOB NICHOLAS MD PS/NTS Conf#: [id number] DID#: [id number] CC: RICARDO ALFONSO; AL TOMLIN MD;*EndCC* MTDD
--- NOTE | 2018-12-05 16:19 | PREAC ---
Date/Time of Note Date/Time of Note DATE: 12/05/18 TIME: 16:17 Anesthesia Eval and Record Evaluation Time Pre-Procedure Interview DATE: 12/05/18 TIME: 16:17 Age 52 Sex male NPO: 8 hrs Preoperative diagnosis HEMATEMESIS, HISTORY OF COLON POLYP, BRBPR Planned procedure EGD, COLON WITH BIOPSIES Past Medical History Past Medical History: Includes Cardio: Dyslipidemia GI: GERD Surgery & Anesthesia Issues No known issue Meds Anticoagulation: Yes (ELIQUIS STOPPED 4 DAYS AGO) Beta Diane within 24 hr: No Reason Beta Diane not given: Pt. not on B-Diane Reported Medications Metoclopramide* (Reglan*) 5 Mg Tablet, 5 MG PO AC MEALS, TAB 12/03/18 Famotidine* (Famotidine*) 20 Mg Tablet, 20 MG PO QID, #30 TAB 12/03/18 Montelukast Sodium* (Montelukast Sodium*) 10 Mg Tablet, 10 MG PO QHS, #30 TAB 12/03/18 Apixaban* (Eliquis*) 5 Mg Tablet, 10 MG PO DAILY, TAB 12/03/18 Atorvastatin Calcium* (Atorvastatin Calcium*) 20 Mg Tablet, 20 MG PO QHS, #30 TAB 12/03/18 Carisoprodol* (Carisoprodol*) 350 Mg Tablet, 175 MG PO NEEDED PRN for MUSCLE SPASMS, TAB 12/03/18 Hydrocodone/Acetaminophen ([place] 10-325 Tablet) 1 Each Tablet, 1 EACH PO TID PRN for NEEDED, TAB 12/03/18 Escitalopram Oxalate* (Escitalopram Oxalate*) 10 Mg Tablet, 10 MG PO DAILY, #30 TAB 12/03/18 Discontinued Reported Medications Pantoprazole* (Protonix*) 40 Mg Tablet.dr, 40 MG PO DAILY, TAB 03/06/18 [Reglan] No Conflict Check, PO 08/22/17 Current Medications IV Flush (NS 3 ml) 3 ml PER PROTOCOL IV ; Start 12/03/18 at 16:00 Ondansetron HCl (Zofran Inj) 4 mg Q6H PRN IV NAUSEA/VOMITING Last administered on 12/03/18at 16:41; Admin Dose 4 MG; Start 12/03/18 at 16:00 Acetaminophen (Tylenol Tab) 650 mg Q6H PRN PO .PAIN 1-3 OR TEMP; Start 12/03/18 at 16:00 Docusate Sodium (Colace) 100 mg Q12H PRN PO .CONSTIPATION Last administered on 12/03/18 23:54; Admin Dose 100 MG; Start 12/03/18 at 16:00 Apixaban (Eliquis) 10 mg DAILY PO Last administered on 12/04/18 08:33; Admin Dose 10 MG; Start 12/03/18 at 16:00; Status Hold Atorvastatin Calcium (Lipitor) 20 mg QHS PO Last administered on 12/04/18 20:14; Admin Dose 20 MG; Start 12/03/18 at 21:00 Carisoprodol (Soma) 175 mg DAILY PRN PO MUSCLE SPASMS; Start 12/03/18 at 16:00 Escitalopram Oxalate (Lexapro) 10 mg DAILY PO Last administered on 12/05/18 08:31; Admin Dose 10 MG; Start 12/04/18 at 09:00 Famotidine (Pepcid) 20 mg BID PO Last administered on 12/05/18 08:31; Admin Dose 20 MG; Start 12/03/18 at 21:00 Acetaminophen/ Hydrocodone Bitart ([place] (10/325)) 1 tab TID PRN PO NEEDED Last administered on 12/05/18 06:35; Admin Dose 1 TAB; Start 12/03/18 at 16:00 Metoclopramide HCl (Reglan) 5 mg AC MEALS PO Last administered on 12/05/18 06:51; Admin Dose 5 MG; Start 12/03/18 at 17:30 Montelukast Sodium (Singulair) 10 mg QHS PO Last administered on 12/04/18 20:14; Admin Dose 10 MG; Start 12/03/18 at 21:00 Metoprolol Tartrate (Lopressor) 25 mg BID PO Last administered on 12/05/18 08: 32; Admin Dose 25 MG; Start 12/03/18 at 21:00 Nitroglycerin (Nitroglycerin (Sl Tab) 0.4 Mg) 1 tab Q5M PRN SL ANGINA; Start 12/03/18 at 18:30 Acetaminophen/ Hydrocodone Bitart ([place] (5/325)) 1 tab Q4H PRN PO .MOD PAIN 4- 6 Last administered on 5/7/19at 12:15; Admin Dose 1 TAB; Start 12/04/18 at 12:00 Morphine Sulfate (morphine) 4 mg Q4H PRN IV .SEVERE PAIN 7-10; Start 12/05/18 at 16:00 Meds reviewed: Yes Allergies Coded Allergies: No Known Drug Allergies (Verified Allergy, Unknown, 12/05/18) Allergies Reviewed: Yes Labs/Studies Labs Reviewed: Reviewed by anesthesiologist Result Diagram: 12/04/18 0524 12/04/1824 test: N/A Pre-procedure Exam Last vitals Vital Signs Date Temp Pulse Resp B/P (MAP) Pulse Ox O2 O2 Flow FiO2 Time Delivery Rate 12/05/18 64 16:12 12/05/18 98.3 17 134/81 99 Room Air 16:00 (98) Airway: Adequate mouth opening, Adequate thyromental dist Mallampati: Mallampati II Teeth: Normal Lung: Normal Heart: Normal ASA Physical Status ASA physical status: 2 Emergency: None Planned Anesthetic General/MAC: MAC Planned Pain Management Parenteral pain med Pre-operative Attestations Prior to commencing anesthesia and surgery, the patient was re-evaluated, there was verification of: *The patient's identity *The results of appropriate recent lab work and preoperative vital signs *The above evaluation not changing prior to induction *Anesthetic plan, risk benefits, alternative and complications discussed with pa tient/family; questions answered; patient/family understands, accepts and wishes to proceed. Braden Hdez M.D. December 05, 2018 16:19
[2018-12-05] MEDS ORDERED: PROPOFOL 60 ML ONE (16:20)
[2018-12-05] MEDS ORDERED: LIDOCAINE 100 MG SYRINGE ONE (16:20)
[2018-12-05] MEDS ORDERED: FENTAnyl 50 MCG/ML VIAL ONE (16:20)
--- NOTE | 2018-12-05 16:26 | RADRPT ---
Echocardiogram Report Patient Name: CUATE ABDALLAPatient ID: [id number] : 1965 (52y 12m)Study Date: 12/04/2018 8:09:42 AM Gender: MAccession #: [id number] Tech: Hakeem Becerra [facility] Location: [facility] Ref.Physician: RICARDO ALFONSO Height(Cm): BSA: Weight(Kg): Quality: AdequateAccount #: Procedures: Echocardiographic Report: Transthoracic echocardiogram with complete 2D, M-Mode, and doppler examination. Indications: Evaluate Left Ventricular function. Measurements: 2D/M Mode Doppler Measurement Value Normal Range Measurement Value Normal Range LVIDd 2D 5.0 [ 4.2 - 5.8 ] cm AV Peak Shadi 1.4 [ 100.0 - 170.0 ] cm/sec LVIDs 2D 3.2 [ 2.5 - 4.0 ] cm AV Peak PG 8.0 [ 2.0 - 9.0 ] mmHg LVPWd 2D 0.8 [ 0.6 - 1.0 ] cm LVOT Peak Shadi 0.9 [ 70.0 - 110.0 ] cm/sec IVSd 2D 0.8 [ 0.6 - 1.0 ] cm LVOT Peak PG 4.0 [ 2.0 - 6.0 ] mmHg AoR Diam 2D 2.8 [ 2.6 - 3.4 ] cm MV E Peak Shadi 0.7 [ 60.0 - 130.0 ] cm/sec EDV 2D 116.0 [ 62.0 - 150.0 ] ml MV A Peak Shadi 0.5 [ 100.0 - 120.0 ] cm/sec ESV 2D 41.9 [ 21.0 - 61.0 ] ml MV E/A 1.4 [ 0.8 - 1.5 ] ratio EF 2D 63.9 [ 52.0 - 72.0 ] percent MV Decel Time 250 [ 104 - 258 ] msec LA Dimen 2D 3.5 [ 3.0 - 4.0 ] cm Lat E` Shadi 0.2 [ 10.0 - 15.0 ] cm/sec Lateral E/E` 4.7 [ 1.0 - 2.0 ] ratio MV E/A 1.4 [ 0.8 - 1.5 ] ratio TR Peak Shadi 2.4 [ 100.0 - 280.0 ] cm/sec TR Peak PG 24.0 mmHg RVSP 32.0 [ 10.0 - 36.0 ] mmHg Findings: Left Ventricle: Normal left ventricular systolic function. Normal left ventricular cavity size. Normal left ventricular wall thickness. Ejection fraction is visually estimated at 50 %. Tissue Doppler/Mitral Doppler indices are consistent with pseudonormalization with mildly elevated left atrial pressure (Stage II diastolic dysfunction). Right Ventricle: Normal right ventricular size. Normal right ventricular systolic function. Left Atrium: The left atrium is normal in size. Right Atrium: The right atrium is normal in size. Mitral Valve: Mild mitral leaflet calcification. Mild mitral annular calcification. Trace mitral regurgitation. Aortic Valve: No hemodynamically significant aortic stenosis by doppler. Aortic cusps appear mildly calcified. Tricuspid Valve: Normal appearance of the tricuspid valve. Estimated peak PA systolic pressure 32 mmHg. There is mild tricuspid regurgitation. Pericardium: Normal pericardium with no significant pericardial effusion. Aorta: Normal aortic root. IVC: Dilated IVC with respiratory collapse consistent with elevated right atrial pressure. Conclusions: Normal left ventricular systolic function. Normal left ventricular cavity size. Normal left ventricular wall thickness. Ejection fraction is visually estimated at 50 %. Tissue Doppler/Mitral Doppler indices are consistent with pseudonormalization with mildly elevated left atrial pressure (Stage II diastolic dysfunction). Mild mitral leaflet calcification. Mild mitral annular calcification. Trace mitral regurgitation. Normal appearance of the tricuspid valve. Estimated peak PA systolic pressure 32 mmHg. There is mild tricuspid regurgitation. Electronically Signed By: Martin Martini 2018-12-05 16:25:25 PDT
[2018-12-05] MEDS ORDERED: hydrALAzine 20 MG INJ IV PRN (16:30)
[2018-12-05] MEDS ORDERED: TRIMETHOBENZAMIDE 100 MG/ML VIAL IM PRN (16:30)
[2018-12-05] MEDS ORDERED: LABETALOL HCL 20MG INJ IV PRN (16:30)
[2018-12-05] MEDS ORDERED: MIDAZOLAM 1 MG/ML 2 ML INJ IV PRN (16:30)
[2018-12-05] MEDS ORDERED: OXYCODONE/ACETAMINOPHEN (5/325) TAB PO PRN ×2 (16:30)
[2018-12-05] MEDS ORDERED: IPRATROPIUM (NEB) 0.5 MG/2.5 ML AMP HHN PRN (16:30)
[2018-12-05] MEDS ORDERED: HYDROmorphONE 1 MG/5 ML IV SYRINGE IV PRN ×3 (16:30)
[2018-12-05] MEDS ORDERED: ONDANSETRON 4 MG INJ IV PRN (16:30)
[2018-12-05] MEDS ORDERED: EPHEDrine SULFATE 50 MG/5 ML SYG IV PRN (16:30)
[2018-12-05] MEDS ORDERED: MEPERIDINE 25 MG INJ IV PRN (16:30)
[2018-12-05] MEDS ORDERED: FENTAnyl 50 MCG/ML VIAL IV PRN ×3 (16:30)
[2018-12-05] MEDS ORDERED: DIPHENHYDRAMINE 50 MG INJ IV PRN (16:30)
[2018-12-05] MEDS ORDERED: ALBUTEROL 0.083% (NEB) 2.5 MG/3 ML AMP HHN PRN (16:30)
--- NOTE | 2018-12-05 17:11 | PAC ---
Date/Time of Note Date/Time of Note DATE: 12/05/18 TIME: 17:10 Post-Anesthesia Notes Post-Anesthesia Note Last documented vital signs Vital Signs Date Temp Pulse Resp B/P (MAP) Pulse Ox O2 O2 Flow FiO2 Time Delivery Rate 12/05/18 64 16:12 12/05/18 98.3 17 134/81 99 Room Air 16:00 (98) Activity: WNL Respiratory function: WNL Cardiovascular function: WNL Mental status: Baseline Pain reasonably controlled: Yes Hydration appropriate: Yes Nausea/Vomiting absent: Yes MICHELLE BELLE December 05, 2018 17:11
[2018-12-05] MEDS: PANTOPRAZOLE (EC) 40 MG TAB PO SCH ×2 (18:00→20:04)
--- NOTE | 2018-12-05 18:40 | HPN ---
Date/Time of Note Date/Time of Note DATE: 12/05/18 TIME: 16:31 Interval H&P Admission Note Pt. seen H&P reviewed: No system changes CAITIE ALVAREZ MD December 05, 2018 18:40
--- NOTE | 2018-12-05 19:27 | PN ---
Date/Time of Note Date/Time of Note DATE: 12/05/18 TIME: 19:25 Assessment/Plan VTE Prophylaxis Risk score (from Nsg)>0 risk: 8 Pharmacological prophylaxis: apixaban Lines/Catheters IV Catheter Type (from Nrsg): Peripheral IV Assessment/Plan Hospital Course 1. Left-sided pain like secondary to neuropathy from cervical radiculopathy Pain control with morphine ACS ruled out with negative stress test Cardiology following 2. History of GERD with Carter's esophagus EGD colonoscopy today PPI 3. History of pancreatic mass status post resection No active issues 4. History of left leg DVT Continue Eliquis Prophylaxis: On Eliquis DC planning: Anticipate DC home tomorrow Result Diagram: 12/04/1852312/04/18523 Subjective 24 Hr Interval Summary Musculoskeletal: bone/joint pain Exam/Review of Systems Exam Vitals Vital Signs Date Temp Pulse Resp B/P (MAP) Pulse Ox O2 O2 Flow FiO2 Time Delivery Rate 12/05/18 98.1 66 18 117/81 99 Room Air 17:55 (93) 12/05/18 10.0 17:10 Intake and Output 12/04/18 12/04/18 12/05/18 1515:00 23:00 07:00 IntakeIntake Total 800 ml 1600 ml OutputOutput Total 900 ml BalanceBalance -900 ml 800 ml 1600 ml Constitutional: alert, oriented Respiratory: clear to auscultation Cardiovascular: regular rate and rhythm Gastrointestinal: soft; No distended Musculoskeletal: nl extremities to inspection Medications Medication Current Medications IV Flush (NS 3 ml) 3 ml PER PROTOCOL IV ; Start 12/03/18 at 16:00 Ondansetron HCl (Zofran Inj) 4 mg Q6H PRN IV NAUSEA/VOMITING Last administered on 12/03/18at 16:41; Admin Dose 4 MG; Start 12/03/18 at 16:00 Acetaminophen (Tylenol Tab) 650 mg Q6H PRN PO .PAIN 1-3 OR TEMP; Start 12/03/18 at 16:00 Docusate Sodium (Colace) 100 mg Q12H PRN PO .CONSTIPATION Last administered on 12/03/18at 23:54; Admin Dose 100 MG; Start 12/03/18 at 16:00 Apixaban (Eliquis) 10 mg DAILY PO Last administered on 12/04/18at 08:33; Admin Dose 10 MG; Start 12/03/18 at 16:00; Status Hold Atorvastatin Calcium (Lipitor) 20 mg QHS PO Last administered on 12/04/18 20: 14; Admin Dose 20 MG; Start 12/03/18 at 21:00 Carisoprodol (Soma) 175 mg DAILY PRN PO MUSCLE SPASMS; Start 12/03/18 at 16:00 Escitalopram Oxalate (Lexapro) 10 mg DAILY PO Last administered on 12/05/18 08:31; Admin Dose 10 MG; Start 12/04/18 at 09:00 Acetaminophen/ Hydrocodone Bitart ([place] (10/325)) 1 tab TID PRN PO NEEDED Last administered on 12/05/18 06:35; Admin Dose 1 TAB; Start 12/03/18 at 16:00 Montelukast Sodium (Singulair) 10 mg QHS PO Last administered on 12/04/18 20:14; Admin Dose 10 MG; Start 12/03/18 at 21:00 Metoprolol Tartrate (Lopressor) 25 mg BID PO Last administered on 12/05/18 08:32; Admin Dose 25 MG; Start 12/03/18 at 21:00 Nitroglycerin (Nitroglycerin (Sl Tab) 0.4 Mg) 1 tab Q5M PRN SL ANGINA; Start 12/03/18 at 18:30 Acetaminophen/ Hydrocodone Bitart ([place] (5/325)) 1 tab Q4H PRN PO .MOD PAIN 4- 6 Last administered on 12/04/18at 12:15; Admin Dose 1 TAB; Start 12/04/18 at 12:00 Morphine Sulfate (morphine) 4 mg Q4H PRN IV .SEVERE PAIN 7-10; Start 12/05/18 at 16:00 Hydromorphone HCl (Dilaudid) 0.2 mg PACU PRN IV MILD PAIN 1-3; Start 12/05/18 at 16:30; Stop 12/05/18 at 23:00 Hydromorphone HCl (Dilaudid) 0.4 mg PACU PRN IV MOD PAIN 4-6 Last administered on 12/05/18 17:46; Admin Dose 0.4 MG; Start 12/05/18 at 16:30; Stop 12/05/18 at 23:00 Hydromorphone HCl (Dilaudid) 0.6 mg PACU PRN IV SEVERE PAIN 7-10; Start 12/05/18 at 16:30; Stop 12/05/18 at 23:00 Fentanyl (Sublimaze) 25 mcg PACU ORDER PRN IV MILD PAIN 1-3; Start 12/05/18 at 16:30; Stop 12/05/18 at 23:00 Fentanyl (Sublimaze) 50 mcg PACU ORDER PRN IV MOD PAIN 4-6 Last administered on 12/05/18at 17:46; Admin Dose 50 MCG; Start 12/05/18 at 16:30; Stop 12/05/18 at 23:00 Fentanyl (Sublimaze) 75 mcg PACU ORDER PRN IV SEVERE PAIN 7-10; Start 12/05/18 at 16:30; Stop 12/05/18 at 23:00 Oxycodone/ Acetaminophen (Percocet (5/ 325)) 1 tab PACU ORDER PRN PO .PAIN 1-5 Last administered on 12/05/18at 17:47; Admin Dose 1 TAB; Start 12/05/18 at 16:30; Stop 12/05/18 at 23:00 Oxycodone/ Acetaminophen (Percocet (5/ 325)) 2 tab PACU ORDER PRN PO .PAIN 6-10; Start 12/05/18 at 16:30; Stop 12/05/18 at 23:00 Ondansetron HCl (Zofran Inj) 4 mg PACU ORDER PRN IV NAUSEA/VOMITING; Start 12/05/18 at 16:30; Stop 12/05/18 at 23:00 Trimethobenzamide HCl (Tigan) 200 mg PACU ORDER PRN IM NAUSEA/VOMITING; Start 12/05/18 at 16:30; Stop 12/05/18 at 23:00 Labetalol HCl (Labetalol) 5 mg PACU ORDER PRN IV HIGH BLOOD PRESSURE; Start 12/05/18 at 16:30; Stop 12/05/18 at 23:00 Hydralazine HCl (Apresoline) 5 mg PACU ORDER PRN IV HIGH BLOOD PRESSURE; Start 12/05/18 at 16:30; Stop 12/05/18 at 23:00 Ephedrine Sulfate 5 mg PACU ORDER PRN IV BLOOD PRESSURE SUPPORT; Start 12/05/18 at 16:30; Stop 12/05/18 at 23:00 Albuterol (Proventil 0.083% (Neb)) 2.5 mg PACU ORDER PRN HHN .WHEEZING; Start 12/05/18 at 16:30; Stop 12/05/18 at 23:00 Ipratropium [place] (Atrovent 0.02% (Neb)) 0.5 mg PACU ORDER PRN HHN .WHEEZING; Start 12/05/18 at 16:30; Stop 12/05/18 at 23:00 Meperidine HCl (Demerol) 25 mg PACU ORDER PRN IV .RIGORS; Start 12/05/18 at 16:30; Stop 12/05/18 at 23:00 Diphenhydramine HCl (Benadryl) 25 mg PACU ORDER PRN IV .PRURITUS; Start 12/05/18 at 16:30; Stop 12/05/18 at 23:00 Midazolam HCl (Versed) 0.5 mg PACU ORDER PRN IV .ANXIETY; Start 12/05/18 at 16:30; Stop 12/05/18 at 23:00 Metoclopramide HCl (Reglan) 10 mg AC MEALS PO ; Start 12/05/18 at 17:30 Pantoprazole (Protonix Tab) 40 mg BID@06,18 PO ; Start 12/05/18 at 18:00 Sucralfate (Carafate) 1 gm QID PO ; Start 12/05/18 at 21:00 NELIDA LOU December 05, 2018 19:27
[2018-12-05] MEDS: SUCRALFATE 1 GM TAB PO SCH (20:03)
[2018-12-05] MEDS: ATORVASTATIN 20 MG TAB PO SCH (20:03)
[2018-12-05] MEDS: MONTELUKAST 10 MG TAB PO SCH (20:04)
[2018-12-05] MEDS: morphine 4 MG/ML VIAL IV PRN (20:05)
[2018-12-05] MEDS: HYDROCODONE/APAP (5/325) TAB PO PRN (21:51)
[2018-12-06] VITALS (11 sets, daily range): BP systolic 120–154; BP diastolic 69–77; PULSE 63–82; RESP 18–20
[2018-12-06] MEDS: morphine 4 MG/ML VIAL IV PRN ×6 (00:01→22:37)
[2018-12-06] MEDS: HYDROCODONE/APAP (5/325) TAB PO PRN ×2 (02:42→17:24)
[2018-12-06] MEDS: METOCLOPRAMIDE 5 MG TAB PO SCH ×3 (06:37→17:23)
[2018-12-06] MEDS: SUCRALFATE 1 GM TAB PO SCH ×4 (08:46→21:15)
[2018-12-06] MEDS: ESCITALOPRAM 10 MG TAB PO SCH (08:47)
[2018-12-06] MEDS: APIXABAN 5 MG TABLET PO SCH (08:47)
[2018-12-06] MEDS: METOPROLOL 25 MG TAB PO SCH ×2 (08:48→21:15)
[2018-12-06] MEDS: HYDROCODONE/APAP (10/325) TAB PO PRN (08:48)
--- NOTE | 2018-12-06 11:05 | PN ---
Date/Time of Note Date/Time of Note DATE: 12/06/18 TIME: 10:56 Assessment/Plan VTE Prophylaxis Risk score (from Ns)>0 risk: 9 SCD applied (from Ns): No SCD contraindicated: low risk/ambulating Pharmacological prophylaxis: NA/contraindicated Pharm contraindication: low risk/ambulating Lines/Catheters IV [facility] Type (from [facility] Peripheral IV Assessment/Plan Hospital Course Assessment: CP with Left arm pain- r/o cardiac etiology vs GI etiology -EKG- neg -Trop- negative -Stress test- EF 49% scar but no sig ischemia Remote history of hematemesis and bright red blood per rectum EGD 12/05/2018 1.5 similar inlet patch in the proximal esophagus, biopsies were obtained Moderate distal esophagitis. Irregular EG junction consistent with history of Carter's esophagus. Four- quadrant biopsies obtained Small hiatal hernia Moderate gastritis, biopsies obtained to rule out H. pylori infection Nodular duodenitis with no definitive polyps Biopsies obtained Otherwise normal EGD Colonoscopy 12/05/2018 3 polyps in proximal ascending colon: 3 mm sessile polyp. Ablated 6 mm sessile polyp. Snared and retrieved 8 mm sessile polyp. Saline assisted snare polypectomy and retrieval. 3 additional polyps in the area of the cecum: Female SSI of polyp. Ablated. 10 mm sessile polyp. Saline assisted snare polypectomy and retrieval. 8 mm sessile polyp. Saline assisted snare polypectomy and retrieval. 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 Higgins Subjective: Course reviewed with nursing staff Patient interviewed and examined All labs, imaging and other results reviewed The patient feels well, no c/o n/v or abd pain. No over night events Discussed EGD/colonoscopy results, pathology pending PHYSICAL EXAMINATION: GENERAL: Alert & oriented x 3, in no acute distress SKIN: No lesions HEAD: Normocephalic, atraumatic, no tenderness. EYES: Pupils equal reactive to light and accommodation, no discharge. EARS/NOSE AND THROAT: Ears normal, nose normal. NECK: Supple, no masses, thyroid normal. CHEST: Inspection within normal limits. CARDIOVASCULAR: Heart: Regular rate and rhythm. RESPIRATORY: Lungs clear to auscultation. GASTROINTESTINAL AND LIVER: Abdomen: Soft, non tenderness, non-distended, no hernias, no masses, no organomegaly, no ascites, no guarding, no rebound tenderness, normoactive bowel sounds. Rectal: Deferred. EXTREMITIES: No cyanosis, clubbing or edema. Result Diagram: 12/04/1852312/04/18523 Exam/Review of Systems Exam Vitals Vital Signs Date Temp Pulse Resp B/P (MAP) Pulse Ox O2 O2 Flow FiO2 Time Delivery Rate 12/06/18 97.8 67 19 124/76 100 Room Air 07:42 (92) 12/05/18 10.0 17:10 Intake and Output 12/05/18 12/05/18 12/06/18 1515:00 23:00 07:00 IntakeIntake Total 200 ml 250 ml BalanceBalance 200 ml 250 ml Medications Medication Current Medications IV Flush (NS 3 ml) 3 ml PER PROTOCOL IV ; Start 12/03/18 at 16:00 Ondansetron HCl (Zofran Inj) 4 mg Q6H PRN IV NAUSEA/VOMITING Last administered on 12/03/18at 16:41; Admin Dose 4 MG; Start 12/03/18 at 16:00 Acetaminophen (Tylenol Tab) 650 mg Q6H PRN PO .PAIN 1-3 OR TEMP; Start 12/03/18 at 16:00 Docusate Sodium (Colace) 100 mg Q12H PRN PO .CONSTIPATION Last administered on 12/03/18at 23:54; Admin Dose 100 MG; Start 12/03/18 at 16:00 Apixaban (Eliquis) 10 mg DAILY PO Last administered on 12/06/18at 08:47; Admin Dose 10 MG; Start 12/03/18 at 16:00 Atorvastatin Calcium (Lipitor) 20 mg QHS PO Last administered on 12/05/18 20:03; Admin Dose 20 MG; Start 12/03/18 at 21:00 Carisoprodol (Soma) 175 mg DAILY PRN PO MUSCLE SPASMS; Start 12/03/18 at 16:00 Escitalopram Oxalate (Lexapro) 10 mg DAILY PO Last administered on 12/06/18 08:47; Admin Dose 10 MG; Start 12/04/18 at 09:00 Acetaminophen/ Hydrocodone Bitart ([place] (10/325)) 1 tab TID PRN PO NEEDED Last administered on 12/06/18 08:48; Admin Dose 1 TAB; Start 12/03/18 at 16:00 Montelukast Sodium (Singulair) 10 mg QHS PO Last administered on 12/05/18 20:04; Admin Dose 10 MG; Start 12/03/18 at 21:00 Metoprolol Tartrate (Lopressor) 25 mg BID PO Last administered on 12/06/18 08:48; Admin Dose 25 MG; Start 12/03/18 at 21:00 Nitroglycerin (Nitroglycerin (Sl Tab) 0.4 Mg) 1 tab Q5M PRN SL ANGINA Last administered on 12/06/18 08:48; Admin Dose 1 TAB; Start 12/03/18 at 18:30 Acetaminophen/ Hydrocodone Bitart ([place] (5/325)) 1 tab Q4H PRN PO .MOD PAIN 4- 6 Last administered on 12/06/18 02:42; Admin Dose 1 TAB; Start 12/04/18 at 12:00 Morphine Sulfate (morphine) 4 mg Q4H PRN IV .SEVERE PAIN 7-10 Last administered on 12/06/18 09:32; Admin Dose 4 MG; Start 12/05/18 at 16:00 Metoclopramide HCl (Reglan) 10 mg AC MEALS PO Last administered on 12/06/18 06:37; Admin Dose 10 MG; Start 12/05/18 at 17:30 Sucralfate (Carafate) 1 gm QID PO Last administered on 12/06/18 08:46; Admin Dose 1 GM; Start 12/05/18 at 21:00 Diazepam (Valium) 2 mg TID PO ; Start 12/06/18 at 13:00; Status CARLENE SHELL December 06, 2018 11:05
[2018-12-06] MEDS: DIAZEPAM 2 MG TAB PO SCH ×2 (13:36→21:15)
--- NOTE | 2018-12-06 14:54 | PN ---
Date/Time of Note Date/Time of Note DATE: 12/06/18 TIME: 14:49 Assessment/Plan VTE Prophylaxis Risk score (from Nsg)>0 risk: 9 Pharmacological prophylaxis: apixaban Lines/Catheters IV Catheter Type (from Nrsg): Peripheral IV Assessment/Plan Hospital Course 1. Left-sided pain secondary to muscular pain and possible myositis Patient's total CK was recently elevated to 500, currently only mildly elevated Pain is completely reproducible with palpation and is clearly muscular Valium and Soma for muscle spasms Pain control with morphine ACS ruled out with negative stress test Cardiology following, discuss whether or not to discontinue statin which may have contributed to myositis 2. History of GERD with Carter's esophagus EGD continues to show known esophagitis, colonoscopy revealed multiple polyps which were ablated PPI 3. History of pancreatic mass status post resection No active issues 4. History of left leg DVT Continue Eliquis 5. Mild systolic and diastolic CHF Echo shows an EF of 50% with stage II diastolic heart failure Lexiscan showed a scar but no significant ischemia Prophylaxis: On Eliquis DC planning: Continue muscle relaxers and Valium, anticipate DC home tomorrow Result Diagram: 12/04/1852312/04/18523 Subjective 24 Hr Interval Summary Musculoskeletal: restricted range of motion Exam/Review of Systems Exam Vitals Vital Signs Date Temp Pulse Resp B/P (MAP) Pulse Ox O2 O2 Flow FiO2 Time Delivery Rate 12/06/18 68 12:00 12/06/18 98.2 19 120/77 99 Room Air 11:59 (91) 12/05/18 10.0 17:10 Intake and Output 12/05/18 12/05/18 12/06/18 1515:00 23:00 07:00 IntakeIntake Total 200 ml 250 ml BalanceBalance 200 ml 250 ml Constitutional: alert, oriented Respiratory: clear to auscultation Cardiovascular: regular rate and rhythm Gastrointestinal: soft; No distended Musculoskeletal: nl extremities to inspection Medications Medication Current Medications IV Flush (NS 3 ml) 3 ml PER PROTOCOL IV ; Start 12/03/18 at 16:00 Ondansetron HCl (Zofran Inj) 4 mg Q6H PRN IV NAUSEA/VOMITING Last administered on 12/03/18at 16:41; Admin Dose 4 MG; Start 12/03/18 at 16:00 Acetaminophen (Tylenol Tab) 650 mg Q6H PRN PO .PAIN 1-3 OR TEMP; Start 12/03/18 at 16:00 Docusate Sodium (Colace) 100 mg Q12H PRN PO .CONSTIPATION Last administered on 12/03/18 23:54; Admin Dose 100 MG; Start 12/03/18 at 16:00 Apixaban (Eliquis) 10 mg DAILY PO Last administered on 12/06/18 08:47; Admin Do se 10 MG; Start 12/03/18 at 16:00 Atorvastatin Calcium (Lipitor) 20 mg QHS PO Last administered on 12/05/18 20:03; Admin Dose 20 MG; Start 12/03/18 at 21:00 Carisoprodol (Soma) 175 mg DAILY PRN PO MUSCLE SPASMS; Start 12/03/18 at 16:00 Escitalopram Oxalate (Lexapro) 10 mg DAILY PO Last administered on 12/06/18 08:47; Admin Dose 10 MG; Start 12/04/18 at 09:00 Acetaminophen/ Hydrocodone Bitart ([place] (10/325)) 1 tab TID PRN PO NEEDED Last administered on 12/06/18 08:48; Admin Dose 1 TAB; Start 12/03/18 at 16:00 Montelukast Sodium (Singulair) 10 mg QHS PO Last administered on 12/05/18 20:04; Admin Dose 10 MG; Start 12/03/18 at 21:00 Metoprolol Tartrate (Lopressor) 25 mg BID PO Last administered on 12/06/18 08:48; Admin Dose 25 MG; Start 12/03/18 at 21:00 Nitroglycerin (Nitroglycerin (Sl Tab) 0.4 Mg) 1 tab Q5M PRN SL ANGINA Last administered on 12/06/18 08:48; Admin Dose 1 TAB; Start 12/03/18 at 18:30 Acetaminophen/ Hydrocodone Bitart ([place] (5/325)) 1 tab Q4H PRN PO .MOD PAIN 4- 6 Last administered on 12/06/18 02:42; Admin Dose 1 TAB; Start 12/04/18 at 12:00 Morphine Sulfate (morphine) 4 mg Q4H PRN IV .SEVERE PAIN 7-10 Last administered on 12/06/18 14:23; Admin Dose 4 MG; Start 12/05/18 at 16:00 Metoclopramide HCl (Reglan) 10 mg AC MEALS PO Last administered on 12/06/18at 12:05; Admin Dose 10 MG; Start 12/05/18 at 17:30 Sucralfate (Carafate) 1 gm QID PO Last administered on 12/06/18 12:05; Admin Dose 1 GM; Start 12/05/18 at 21:00 Diazepam (Valium) 2 mg TID PO Last administered on 12/06/18at 13:36; Admin Dose 2 MG; Start 12/06/18 at 13:00 NELIDA LOU December 06, 2018 14:54
--- NOTE | 2018-12-06 18:29 | CONS ---
Assessment/Plan Assessment/Plan Hospital Course (Demo Recall) IMPRESSION: 1. Chest pain, assess for acute coronary syndrome.-neg trop x 3. Lexiscan EF 49% scar but no sig ischemia 2. Hypertension, borderline, labile. 3. Dyslipidemia-LDL 99 HDL 52 4. History of pancreatic mass, status post removal. 5. History of recent CT scan with possible side effect to contrast. 6. Psychiatric disorder. 7. History of deep venous thrombosis and pulmonary embolism. 8. Anemia, mild. 9. Elevated blood glucose. 10.MYalgias-with elevated CK at PMD office. Now decreased Recc: -Tele -Contineu BB -Hold statin discussed with hospitalist and follow for ongoing myalgias -? why patient is taking 10 mg od eliquis. Usual dosing 5mg and is BID given half life of medication -continue sucralfate Consultation Date/Type/Reason Admit Date/Time December 05, 2018 at 16:21 Initial Consult Date 12/04/18 Type of Consult Cardiology Reason for Consultation chest pain Requesting Provider: RICARDO ALFONSO MD Date/Time of Note DATE: 12/06/18 TIME: 18:24 Exam/Review of Systems Vital Signs Vitals Vital Signs Date Temp Pulse Resp B/P (MAP) Pulse Ox O2 O2 Flow FiO2 Time Delivery Rate 12/06/18 65 16:00 12/06/18 98.2 19 134/69 98 Room Air 15:02 (90) 12/05/18 10.0 17:10 Intake and Output 12/05/18 12/05/18 12/06/18 1515:00 23:00 07:00 IntakeIntake Total 200 ml 250 ml BalanceBalance 200 ml 250 ml Exam Exam Review of Systems: CONSTITUTIONAL: No fevers, chills. PULMONARY: No sob CARDIOVASCULAR: No chest pain/palpitations GASTROINTESTINAL: No nausea/vomiting. GENITOURINARY: No hematuria/dysuria. MUSCULOSKELETAL: No myagias/arthalgias. PSYCHIATRIC: The patient denies depression. NEUROLOGIC: No weakness Constitutional: alert Psych: no complaints Head: normocephalic ENMT: mucosa pink and moist Neck: supple, jvd (9cm water) Respiratory: clear to auscultation Cardiovascular: regular rate and rhythm Gastrointestinal: soft, non-tender Musculoskeletal: muscle tone (normal), other (myalgias) Extremities: edema (none) Neurological: other (No focal deficits) Labs Result Diagram: 12/04/1852312/04/18523 Medications Medications Current Medications IV Flush (NS 3 ml) 3 ml PER PROTOCOL IV ; Start 12/03/18 at 16:00 Ondansetron HCl (Zofran Inj) 4 mg Q6H PRN IV NAUSEA/VOMITING Last administered on 12/03/18 16:41; Admin Dose 4 MG; Start 12/03/18 at 16:00 Acetaminophen (Tylenol Tab) 650 mg Q6H PRN PO .PAIN 1-3 OR TEMP; Start 12/03/18 at 16:00 Docusate Sodium (Colace) 100 mg Q12H PRN PO .CONSTIPATION Last administered on 12/03/18 23:54; Admin Dose 100 MG; Start 12/03/18 at 16:00 Apixaban (Eliquis) 10 mg DAILY PO Last administered on 12/06/18 08:47; Admin Dose 10 MG; Start 12/03/18 at 16:00 Atorvastatin Calcium (Lipitor) 20 mg QHS PO Last administered on 12/05/18 20:03; Admin Dose 20 MG; Start 12/03/18 at 21:00 Carisoprodol (Soma) 175 mg DAILY PRN PO MUSCLE SPASMS; Start 12/03/18 at 16:00 Escitalopram Oxalate (Lexapro) 10 mg DAILY PO Last administered on 12/06/18 08:47; Admin Dose 10 MG; Start 12/04/18 at 09:00 Acetaminophen/ Hydrocodone Bitart ([place] (10/325)) 1 tab TID PRN PO NEEDED Last administered on 12/06/18 08:48; Admin Dose 1 TAB; Start 12/03/18 at 16:00 Montelukast Sodium (Singulair) 10 mg QHS PO Last administered on 12/05/18 20:04; Admin Dose 10 MG; Start 12/03/18 at 21:00 Metoprolol Tartrate (Lopressor) 25 mg BID PO Last administered on 12/06/18 0 8:48; Admin Dose 25 MG; Start 12/03/18 at 21:00 Nitroglycerin (Nitroglycerin (Sl Tab) 0.4 Mg) 1 tab Q5M PRN SL ANGINA Last administered on 12/06/18 08:48; Admin Dose 1 TAB; Start 12/03/18 at 18:30 Acetaminophen/ Hydrocodone Bitart ([place] (5/325)) 1 tab Q4H PRN PO .MOD PAIN 4- 6 Last administered on 12/06/18 17:24; Admin Dose 1 TAB; Start 12/04/18 at 12:00 Morphine Sulfate (morphine) 4 mg Q4H PRN IV .SEVERE PAIN 7-10 Last administered on 12/06/18 14:23; Admin Dose 4 MG; Start 12/05/18 at 16:00 Metoclopramide HCl (Reglan) 10 mg AC MEALS PO Last administered on 12/06/18 17:23; Admin Dose 10 MG; Start 12/05/18 at 17:30 Sucralfate (Carafate) 1 gm QID PO Last administered on 12/06/18 17:23; Admin Dose 1 GM; Start 12/05/18 at 21:00 Diazepam (Valium) 2 mg TID PO Last administered on 12/06/18 13:36; Admin Dose 2 MG; Start 12/06/18 at 13:00 ANA RENNER December 06, 2018 18:29
--- NOTE | 2018-12-06 18:40 | PN ---
DATE: 12/06/2018 SUBJECTIVE: States that today they started him on diazepam 2 mg and exactly that 2 mg has helped him a lot and he felt for the first time since being in the hospital he does not have any more spasm or pain in the chest muscle and left upper extremity and these areas. OBJECTIVE: GENERAL: Awake, alert, oriented. VITAL SIGNS: Temperature maximum 98.2, heart rate 74, respirations 19, blood pressure 134/69, saturation 98% on room air. LABORATORY DATA: He does not have any new labs today, but in regards to the laboratories that he had in another hospital done before, apparently his CK total was around 400 or 500, but since admission in the hospital on 12/03/2018 and then, the patient's CK, creatine kinase, was 126 and gradually dropped to 92 and 95. We are going to repeat it tomorrow. Creatine kinase index and CPK-MB fraction has been almost is stable. Troponin has been normal level. DIAGNOSTIC DATA: Apparently, the patient had upper GI endoscopy and colonoscopy done yesterday. Per report, there have been several polyps in the colon and also some changes in the stomach and duodenum that has been documented and [facility] pathology report will be back soon and we will find out about that one. ASSESSMENT: From general surgery point of view at this time, there does not appear to be any acute problem involved and appears that his chest pain radiating to neck and left upper extremity probably could have muscular origin or it could be from pathology in the neck causing radiculopathy as patient _has been evaluated by spine surgeons somewhere else and has been offered operation for pathologies in the neck.. Tension problems could be also involved since the patient has responded to diazepam which is muscle relaxant. PLAN: Continue to follow along with other colleagues. Dictated By: BOB NICHOLAS MD PS/NTS Conf#: [id number] DID#: [id number] CC: AL TOMLIN MD; NELIDA LOU MD;*EndCC* MTDD
[2018-12-06] MEDS: MONTELUKAST 10 MG TAB PO SCH (21:15)
[2018-12-07] VITALS (7 sets, daily range): BP systolic 99–138; BP diastolic 67–93; PULSE 62–80; RESP 18–19
[2018-12-07] MEDS: LIDOCAINE/MYLANTA 40 ML BTL PO PRN ×2 (01:19→07:42)
[2018-12-07] MEDS: morphine 4 MG/ML VIAL IV PRN ×4 (02:13→13:27)
[2018-12-07] MEDS: KETOROLAC 30 MG INJ IV PRN ×2 (03:22→07:52)
[2018-12-07] MEDS: METOCLOPRAMIDE 5 MG TAB PO SCH ×2 (06:29→11:49)
[2018-12-07] MEDS: ONDANSETRON 4 MG INJ IV PRN (07:42)
[2018-12-07] MEDS: SUCRALFATE 1 GM TAB PO SCH ×2 (07:53→13:15)
[2018-12-07] MEDS: DIAZEPAM 2 MG TAB PO SCH ×2 (07:53→13:15)
[2018-12-07] MEDS: ESCITALOPRAM 10 MG TAB PO SCH (08:31)
[2018-12-07] MEDS: APIXABAN 5 MG TABLET PO SCH (08:31)
[2018-12-07] MEDS: METOPROLOL 25 MG TAB PO SCH (08:32)
--- NOTE | 2018-12-07 09:36 | CONS ---
Consult Date/Type/Reason Admit Date/Time December 05, 2018 at 16:21 Initial Consult Date Requesting Provider: RICARDO ALFONSO MD Date/Time of Note DATE: 12/07/18 TIME: 09:34 Subjective NO acute events - pt very anxious - reports chest dyscomfort and asking for angiogram - pt with negative stres test - will discuss with DR. Martini. ROS: No fever, no chills, + N & V no diarrhea/constipation No recent weight changes Intermittent chest pain, no PND, no orthopnea No dizziness, blurred vision No thirst, no heat or cold intolerance Objective Vitals Vital Signs Date Temp Pulse Resp B/P (MAP) Pulse Ox O2 O2 Flow FiO2 Time Delivery Rate 12/07/18 70 08:59 12/07/18 98.5 19 138/93 99 07:53 (108) 12/07/18 Room Air 04:00 12/05/18 10.0 17:10 Intake and Output 12/06/18 12/06/18 12/07/18 1515:00 23:00 07:00 IntakeIntake Total 1320 ml 120 ml BalanceBalance 1320 ml 120 ml Exam General: WN/WD/NAD, AOx 3 anxious HEENT: Unicetric/atraumatic/EOMI (follows commands) NECK: JVD elevated, no thyromegaly Lymph: no lymphadenopathy HEART: regular with no S3, II/ systolic murmur at apex, PMI L LUNGS: Coarse sounds ABD: soft, NT, ND, +BS : Intact Neuro: non focal SKIN: chronic changes EXT: trace edema Results/Medications Result Diagram: 12/04/18 0524 12/07/18 0510 Results 24 hrs Laboratory Tests Test 12/07/18 05:10 Sodium Level 139 Potassium Level 4.6 Chloride Level 103 Carbon Dioxide Level 26 Anion Gap 10 Blood Urea Nitrogen 20 Creatinine 0.94 Est Glomerular Filtrat Rate mL/min > 60 Glucose Level 131 Calcium Level 10.1 Phosphorus Level 3.6 Magnesium Level 2.4 Creatine Kinase 46 Home Meds Reported Medications Metoclopramide* (Reglan*) 5 Mg Tablet, 5 MG PO AC MEALS, TAB 12/03/18 Famotidine* (Famotidine*) 20 Mg Tablet, 20 MG PO QID, #30 TAB 12/03/18 Montelukast Sodium* (Montelukast Sodium*) 10 Mg Tablet, 10 MG PO QHS, #30 TAB 12/03/18 Apixaban* (Eliquis*) 5 Mg Tablet, 10 MG PO DAILY, TAB 12/03/18 Atorvastatin Calcium* (Atorvastatin Calcium*) 20 Mg Tablet, 20 MG PO QHS, #30 TAB 12/03/18 Carisoprodol* (Carisoprodol*) 350 Mg Tablet, 175 MG PO NEEDED PRN for MUSCLE SPASMS, TAB 12/03/18 Hydrocodone/Acetaminophen ([place] 10-325 Tablet) 1 Each Tablet, 1 EACH PO TID PRN for NEEDED, TAB 12/03/18 Escitalopram Oxalate* (Escitalopram Oxalate*) 10 Mg Tablet, 10 MG PO DAILY, #30 TAB 12/03/18 Discontinued Reported Medications Pantoprazole* (Protonix*) 40 Mg Tablet.dr, 40 MG PO DAILY, TAB 03/06/18 [Reglan] No Conflict Check, PO 08/22/17 Medications Current Medications IV Flush (NS 3 ml) 3 ml PER PROTOCOL IV ; Start 12/03/18 at 16:00 Ondansetron HCl (Zofran Inj) 4 mg Q6H PRN IV NAUSEA/VOMITING Last administered on 12/07/18at 07:42; Admin Dose 4 MG; Start 12/03/18 at 16:00 Acetaminophen (Tylenol Tab) 650 mg Q6H PRN PO .PAIN 1-3 OR TEMP; Start 12/03/18 at 16:00 Docusate Sodium (Colace) 100 mg Q12H PRN PO .CONSTIPATION Last administered on 12/03/18at 23:54; Admin Dose 100 MG; Start 12/03/18 at 16:00 Apixaban (Eliquis) 10 mg DAILY PO Last administered on 12/07/18 08:31; Admin Dose 10 MG; Start 12/03/18 at 16:00 Atorvastatin Calcium (Lipitor) 20 mg QHS PO Last administered on 12/05/18at 20:03; Admin Dose 20 MG; Start 12/03/18 at 21:00; Status Hold Carisoprodol (Soma) 175 mg DAILY PRN PO MUSCLE SPASMS; Start 12/03/18 at 16:00 Escitalopram Oxalate (Lexapro) 10 mg DAILY PO Last administered on 5/10/19at 08:31; Admin Dose 10 MG; Start 12/04/18 at 09:00 Acetaminophen/ Hydrocodone Bitart ([place] (10/325)) 1 tab TID PRN PO NEEDED Last administered on 12/06/18 08:48; Admin Dose 1 TAB; Start 12/03/18 at 16:00 Montelukast Sodium (Singulair) 10 mg QHS PO Last administered on 12/06/18 21:15; Admin Dose 10 MG; Start 12/03/18 at 21:00 Metoprolol Tartrate (Lopressor) 25 mg BID PO Last administered on 12/07/18 08:32; Admin Dose 25 MG; Start 12/03/18 at 21:00 Nitroglycerin (Nitroglycerin (Sl Tab) 0.4 Mg) 1 tab Q5M PRN SL ANGINA Last administered on 12/06/18 08:48; Admin Dose 1 TAB; Start 12/03/18 at 18:30 Acetaminophen/ Hydrocodone Bitart ([place] (5/325)) 1 tab Q4H PRN PO .MOD PAIN 4- 6 Last administered on 12/06/18 17:24; Admin Dose 1 TAB; Start 12/04/18 at 12:00 Morphine Sulfate (morphine) 4 mg Q4H PRN IV .SEVERE PAIN 7-10 Last administered on 12/07/18 05:34; Admin Dose 4 MG; Start 12/05/18 at 16:00 Metoclopramide HCl (Reglan) 10 mg AC MEALS PO Last administered on 12/07/18 06:29; Admin Dose 10 MG; Start 12/05/18 at 17:30 Sucralfate (Carafate) 1 gm QID PO Last administered on 12/07/18 07:53; Admin Dose 1 GM; Start 12/05/18 at 21:00 Diazepam (Valium) 2 mg TID PO Last administered on 12/07/18 07:53; Admin Dose 2 MG; Start 12/06/18 at 13:00 Miscellaneous Medication (Gi Cocktail (2)) 40 ml Q6H PRN PO HEARTBURN Last administered on 12/07/18 07:42; Admin Dose 40 ML; Start 12/06/18 at 23:30 Ketorolac Tromethamine (Toradol) 30 mg Q6H PRN IV PAIN LEVEL 1-3 Last administered on 12/07/18at 07:52; Admin Dose 30 MG; Start 12/07/18 at 02:30; Stop 12/10/18 at 02:29 Assessment/Plan Hospital Course (Demo Recall) 1. Chest pain, assess for acute coronary syndrome- stress test done - no ischemia - med rX for now. Check troponin now with Sx, but doubt ACS by exam. 2. Hypertension, borderline, labile - will follow post test, better now. BP better. 3. Dyslipidemia. 4. History of pancreatic mass, status post removal. 5. History of recent CT scan with possible side effect to contrast - resolved. 6. Psychiatric disorder- on meds. 7. History of deep venous thrombosis and pulmonary embolism - on therapay. 8. Anemia, mild. 9. Elevated blood glucose- defer to pmd. JACE BUSTOS MD December 07, 2018 09:36
[2018-12-07] MEDS: HYDROCODONE/APAP (10/325) TAB PO PRN (11:46)
[2018-12-07] MEDS ORDERED: METO-448 PO (12:06)
[2018-12-07] MEDS ORDERED: SUCR1TAB35 PO (12:06)
[2018-12-07] MEDS ORDERED: HYDR-3980 PO (12:06)
[2018-12-07] MEDS ORDERED: CARI350T29 PO (12:06)
[2018-12-07] MEDS ORDERED: APIX5TAB PO (12:07)
--- NOTE | 2018-12-07 12:08 | PDOCDIS ---
Discharge Instructions CONDITION [id number] Patient Condition: [id number] Good HOME CARE INSTRUCTIONS: [id number] Diet Instructions: [id number] Modified Fat ACTIVITY: [id number] Activity Restrictions: [id number] No Restrictions FOLLOW UP/APPOINTMENTS Follow-up Plan FOLLOW UP WITH YOUR PCP IN 1-2 WEEKS NELIDA LOU December 07, 2018 12:08
--- NOTE | 2018-12-07 14:02 | DS ---
Date/Time of Note Date/Time of Note DATE: 12/07/18 TIME: 13:56 Discharge Summary Admission/Discharge Info Admit Date/Time December 03, 2018 Discharge Date/Time December 07, 2018 Discharge Diagnosis 1. Left-sided pain secondary to muscular pain and possible myositis Patient's total CK was recently elevated to 500, currently only mildly elevated Pain is completely reproducible with palpation and is clearly muscular Etiology of muscular pain is likely secondary to severe anxiety and depression possible myositis from Lipitor Have spoken to cardiology and will hold Lipitor for 2 weeks and monitor DC with Soma for muscle spasms ACS ruled out with negative stress test 2. History of GERD with Carter's esophagus EGD continues to show known esophagitis, colonoscopy revealed multiple polyps which were ablated PPI and Carafate 3. History of pancreatic mass status post resection No active issues 4. History of left leg DVT Continue Eliquis 5. Mild systolic and diastolic CHF Echo shows an EF of 50% with stage II diastolic heart failure Lexiscan showed a scar but no significant ischemia DC with metoprolol 6. Severe anxiety Counseled patient extensively on relaxation measures Patient Condition: Good Hospital Course Patient is a 52-year-old male with a history of GERD and Carter's esophagus, pancreatic mass status post resection, chronic abdominal pain as well as cervical radiculopathy. Patient presents with severe left-sided chest pain with radiation into his back and shoulder. Patient was seen by cardiology and ACS was ruled out with EKG, troponins and negative stress tests. Of note echo did show an EF of 50% and the stress test showed a scar but no significant blockage. Patient's pain was clearly reproducible with palpation and was not cardiac in nature. Patient did have an elevated CK at 500 and outside hospital several days before this admission, total CK was within normal limits at this hospitalization. Elevation of CK was likely secondary to mild myositis that was self-limiting or possibly due to statins. Patient had been on Lipitor for the past 4 months, after discussion with cardiology it was recommended to hold Lipitor for 2 weeks to monitor. Patient does have significant anxiety and is pain is likely referred psychosomatic muscular tension. Patient did have a EGD that showed known esophagitis and likely Carter's. Colonoscopy showed multiple polyps that were ablated. Extensive conversation was had about relaxation measures. Patient was stable for DC, on the day of discharge patient's vitals, labs and physical exam are stable. Home Meds Active Scripts Apixaban* (Eliquis*) 5 Mg Tablet, 5 MG PO BID, #60 TAB Prov:NELIDA LOU 12/07/18 Sucralfate (Carafate) 1 Gm Tablet, 1 GM PO QID, #60 TAB 1 Refill Prov:NELIDA LOU 12/07/18 Metoprolol Tartrate* (Lopressor*) 25 Mg Tab, 25 MG PO BID, #60 TAB Prov:NELIDA LOU 12/07/18 Carisoprodol* (Carisoprodol*) 350 Mg Tablet, 175 MG PO NEEDED PRN for MUSCLE SPASMS, #30 TAB Prov:NELIDA LOU 12/07/18 Hydrocodone/Acetaminophen ([place] 10-325 Tablet) 1 Each Tablet, 1 EACH PO TID PRN for NEEDED, #30 TAB Prov:NELIDA LOU 12/07/18 Reported Medications Metoclopramide* (Reglan*) 5 Mg Tablet, 5 MG PO AC MEALS, TAB 12/03/18 Famotidine* (Famotidine*) 20 Mg Tablet, 20 MG PO QID, #30 TAB 12/03/18 Montelukast Sodium* (Montelukast Sodium*) 10 Mg Tablet, 10 MG PO QHS, #30 TAB 12/03/18 Escitalopram Oxalate* (Escitalopram Oxalate*) 10 Mg Tablet, 10 MG PO DAILY, #30 TAB 12/03/18 Discontinued Reported Medications Apixaban* (Eliquis*) 5 Mg Tablet, 10 MG PO DAILY, TAB 12/03/18 Atorvastatin Calcium* (Atorvastatin Calcium*) 20 Mg Tablet, 20 MG PO QHS, #30 TAB 12/03/18 Pantoprazole* (Protonix*) 40 Mg Tablet.dr, 40 MG PO DAILY, TAB 03/06/18 [Reglan] No Conflict Check, PO 08/22/17 Follow-up Plan FOLLOW UP WITH YOUR PCP IN 1-2 WEEKS Primary Care Provider Not On Staff Doctor Time spent on discharge: > 30 minutes NELIDA LOU December 07, 2018 14:02
--- NOTE | 2018-12-07 17:15 | PN ---
DATE: 12/07/2018 SUBJECTIVE: The patient expressed dissatisfaction with the opinion that has been given by the doctor s about his pain and the cause of his pain. Otherwise, no other new problem. OBJECTIVE: GENERAL: Awake, alert, oriented. VITAL SIGNS: Temperature maximum today 98.9, heart rate 80, respirations 19, blood pressure 99/67, s aturation 96% on room air. LABORATORY DATA: No hematology today, but previous one, which was on 12/04/2018, is normal. Caddy Packer ry: BUN, creatinine, sodium and potassium within normal limits. Troponin again repeated today is no rmal. Creatine kinase is 46 today while on admission it was 126 and gradually has come down but is i n normal range. HOSPITAL COURSE: Basically, the patient was admitted because of the history of chest pain radiating to the left upper extremity and left lower extremity and also the right side of the neck. The patien t was evaluated here in this hospital thoroughly by gastroenterology and actually the patient had a c olonoscopy and EGD. Several polyps from the colon were removed which did not show any cancer. The e ndoscopy showed evidence of some esophageal abnormality with Carter esophagus and evidence of reflux . The patient was given appropriate treatment by Dr. Higgins and to be followed by Dr. Higgins in the office. Also, the patient can have colonoscopy repeated in 1 year. The patient has been seen by car diologist. They found on Lexiscan evidence of some scar, but they did not believe this is an acute p rocess. Ejection fraction was 50%. On the other hand, the medical service believes that probably be cause of muscular pain of this patient is due to side effects of Lipitor, so they decided to disconti nue the Lipitor for at least couple of weeks and then repeat the test and follow the patient for that matter. Also, Dr. Celaya had the idea that it is possible it could be psychosomatic pain. Eventua lly, no evidence of recurrence of the pancreatic tumor which was removed a couple of years ago. Ther efore from general surgical point of view, we do not offer any more investigation or any treatment. From other medical point of view like cardiology and GI, the patient has been investigated and proper advice has been given to the patient. Dr. Celaya, internal medicine hospitalist, is planning to di scharge the patient home today and for the history of DVT, to continue liquids. He was also prescrib ed soma for muscle relaxation. Recommendation of medical service has been completely written in the chart and the patient has been advised to continue to follow with primary care. From general surgica l point of view again if the patient has any new abdominal pain, he can follow up as he has done befo re with Dr. Kuhn in his office. Dictated By: BOB NICHOLAS MD PS/NTS Conf#: [id number] DID#: [id number] CC: NELIDA CELAYA MD; AL KUHN MD;*EndCC*
== END 2018-12-07 16:47 | disposition home or self-care (01) | DRG 556 ==
LOC: E/R 09:28 → 6WM 12:51 → OBSVTOIN 12-05 16:21
PROVIDERS: ADMIT Internal Medicine; ATTEND Internal Medicine
PROC: 0D5H8ZZ Destruction of Cecum, Via Natural or Artificial Opening Endoscopic (ICD-10-PCS; 2018-12-05)
PROC: 0DBK8ZX Excision of Ascending Colon, Via Natural or Artificial Opening Endoscopic, Diagnostic (ICD-10-PCS; 2018-12-05)
PROC: 0DBH8ZX Excision of Cecum, Via Natural or Artificial Opening Endoscopic, Diagnostic (ICD-10-PCS; 2018-12-05)
PROC: 0DB98ZX Excision of Duodenum, Via Natural or Artificial Opening Endoscopic, Diagnostic (ICD-10-PCS; principal; 2018-12-05 18:30)
PROC: 0DB68ZX Excision of Stomach, Via Natural or Artificial Opening Endoscopic, Diagnostic (ICD-10-PCS; 2018-12-05 18:30)
PROC: 0DB58ZX Excision of Esophagus, Via Natural or Artificial Opening Endoscopic, Diagnostic (ICD-10-PCS; 2018-12-05 18:30)
PROC: 0D5K8ZZ Destruction of Ascending Colon, Via Natural or Artificial Opening Endoscopic (ICD-10-PCS; 2018-12-05 18:30)
DX: M60.9 Myositis, unspecified (principal); I50.40 Unspecified combined systolic (congestive) and diastolic (congestive) heart failure; I11.0 Hypertensive heart disease with heart failure; K31.84 Gastroparesis; R07.89 Other chest pain; F32.9 Major depressive disorder, single episode, unspecified; F41.9 Anxiety disorder, unspecified; E78.5 Hyperlipidemia, unspecified; D64.9 Anemia, unspecified; R73.9 Hyperglycemia, unspecified; K22.70 Barrett's esophagus without dysplasia; M54.12 Radiculopathy, cervical region; K29.80 Duodenitis without bleeding; K44.9 Diaphragmatic hernia without obstruction or gangrene; K29.70 Gastritis, unspecified, without bleeding; K21.0 Gastro-esophageal reflux disease with esophagitis; D12.2 Benign neoplasm of ascending colon; D12.0 Benign neoplasm of cecum; K64.8 Other hemorrhoids; Z79.01 Long term (current) use of anticoagulants; Z79.02 Long term (current) use of antithrombotics/antiplatelets; Z86.010 Personal history of colon polyps; Z86.711 Personal history of pulmonary embolism; Z86.718 Personal history of other venous thrombosis and embolism; Z90.411 Acquired partial absence of pancreas
CPT/HCPCS: 36415; 71045; 71275; 78452; 80048; 80053; 80061; 82550; 82553; 83690; 83735; 83880; 84100; 84484; 85025; 85610; 85730; 88305; 88312; 88313; 93005; 93017; 93306; 93931; 96374; 96375; G0378; A9500; A9505; J1170; J1885; J2001; J2270; J2405; J2785; J3010; J7040; Q9967